=== PATIENT | female | born 1955 | race American Indian/Alaskan Native ===

== ENCOUNTER 2019-03-29 19:26 | Inpatient (IN) | payer OTHER ==
[2019-03-29] MEDS ORDERED: levETIRAcetam 1000 MG/NS 0.75% 1,000 MG/100 ML BAG IV ONE (19:36)
[2019-03-29] MEDS ORDERED: SODIUM CHLORIDE 0.9% 500 ML 500 ML IV ONE (19:40)
[2019-03-29] MEDS ORDERED: SODIUM CHLORIDE 0.9% 1000 ML 1,000 ML ONE (19:48)
--- NOTE | 2019-03-29 19:51 | Emergency Department Report ---
ED Seizure HPI - General Chief Complaint: Seizure Stated Complaint: SEIZURE Time Seen by Provider: 03/29/19 19:30 Source: family, EMS Mode of arrival: Wheelchair Limitations: Altered Mental Status - History of Present Illness Initial Comments: 63 year old female with multiple sclerosis wheelchair-bound presents from the skilled nursing after having multiple seizures. At this time is unclear patient has a seizure history. half-way staff reported that patient did have a history seizures. Family member at the skilled nursing states that the patient did not. Patient is not on any seizure medications on her medication list. Patient had 2 seizures prior to EMS arrival approximately 30 minutes ago. In route she had an additional 3 seizures. She received intranasal Versed 2.5 mg. Patient is currently post ictal. Apparently she is nonambulatory as per EMS. son arrived to ed denies hx of sz consents to intubation, not a dnr reports that pt often falls asleep in wheelchair. 4 days ago she slid out of wheelchair to floor but denied any pain or injuries. per [facility] med MAR pt current meds include tramdol asa 81 hctz potassium venlafaxine dermasra anti itch lotion atrovastatin latanoprost eye drops sulindac acetaminophen - Related Data Allergies Allergy/AdvReac Type Severity Reaction Status Date / Time No Known Allergies Allergy Unverified 03/29/19 20:00 ED Review of Systems ROS: Stated complaint: SEIZURE Other details as noted in HPI Comment: Unobtainable due to pts medical conditions ED Past Medical Hx - Past Medical History Hx Hypertension: Yes Hx Headaches / Migraines: Yes Additional medical history: elevated cholesterol. multiple sclerosis - Surgical History Past Surgical History?: No Additional Surgical History: DINORA - Social History Smoking Status: Unknown if ever smoked ED Physical Exam - General Limitations: Altered Mental Status - Other Other exam information: General: Lethargic a post ictal Head: Atraumatic Eyes: normal appearance pupils equal reactive to light ENT: Moist mucous membranes, mild gag reflex Neck: Normal appearance, no midline tenderness Chest: Clear to auscultation bilaterally CV: Tachycardic regular rhythm Abdomen: Soft, normal bowel sounds, nontender, nondistended, no rebound or guarding Back: Normal inspection Extremity: Normal inspection infection, full range of motion Neuro: Post ictal, lethargic, mild withdrawal to pain, minimal spontaneous movement. Psych: Appropriate behavior Skin: No rash ED Course Vital Signs 03/29/19 03/29/19 03/29/19 19:33 19:39 20:04 Temperature 97.9 F Pulse Rate 121 H 112 H Respiratory 16 16 Rate Blood Pressure 115/67 115/67 O2 Sat by Pulse 98 100 Oximetry 03/29/19 03/29/19 03/29/19 20:16 20:30 20:40 Temperature Pulse Rate 114 H 112 H 117 H Respiratory 17 15 Rate Blood Pressure 52/29 203/158 139/79 O2 Sat by Pulse 98 100 100 Oximetry 03/29/19 03/29/19 03/29/19 20:46 20:49 21:00 Temperature 96.9 F L Pulse Rate 118 H 110 H Respiratory 13 12 Rate Blood Pressure 111/64 113/80 O2 Sat by Pulse 100 100 Oximetry 03/29/19 03/29/19 03/29/19 21:16 21:30 21:46 Temperature Pulse Rate 112 H 117 H 113 H Respiratory 14 14 14 Rate Blood Pressure 115/81 139/78 127/79 O2 Sat by Pulse 100 100 100 Oximetry 03/29/19 03/29/19 03/29/19 22:00 22:16 23:03 Temperature Pulse Rate 113 H 120 H 118 H Respiratory 14 15 Rate Blood Pressure 129/79 140/83 139/85 O2 Sat by Pulse 100 100 100 Oximetry - Reevaluation(s) Reevaluation #1: 03/29/19 20:50 pt continued to sz despite 1g keppra and additional 2 mg of ativan. sz involved minor twitching movements to b/l hands/arms and face. decision made to intubate, verbal consent provided by son at bedside. ct head images reviewed. awaiting report 03/29/19 21:37 - Consultations Consultation #1: 03/29/19 21:35 case d/w Dr Pleitez with [place], agree that pt can be admitted here since intubated - Intubation Time Out Performed: Yes Sedative: Etomidate Mg Given: 20 Paralytic: Succinylcholine Mg Given: 100 Laryngoscope: Andre Size: 3 ET Tube Size: 7.5 Tube Secured Depth (cm): 22 Tube Secured Location: lips Tube Placement Confirmation: visualized tube passing t, equal breath sounds bilat, no breath sounds over epi, confirmation by capnometr Patient Tolerated Procedure: well, no complications Intubation Complications: none ED Medical Decision Making - Lab Data Result diagrams: 03/29/19 19:56 03/29/19 20:42 Lab Results 03/29/19 03/29/19 03/29/19 Range/Units 19:51 19:56 19:56 WBC 7.5 (4.5-11.0) K/mm3 RBC 4.02 (3.65-5.03) M/mm3 Hgb 11.0 (10.1-14.3) gm/dl Hct 33.0 (30.3-42.9) % MCV 82 (79-97) fl MCH 27 L (28-32) pg MCHC 33 (30-34) % RDW 15.7 H (13.2-15.2) % Plt Count 373 (140-440) K/mm3 Lymph % (Auto) 15.6 (13.4-35.0) % [place] % (Auto) 8.5 H (0.0-7.3) % Eos % (Auto) 1.1 (0.0-4.3) % Baso % (Auto) 0.6 (0.0-1.8) % Lymph # 1.2 (1.2-5.4) K/mm3 [place] # 0.6 (0.0-0.8) K/mm3 Eos # 0.1 (0.0-0.4) K/mm3 Baso # 0.0 (0.0-0.1) K/mm3 Seg Neutrophils % 74.2 H (40.0-70.0) % Seg Neutrophils # 5.5 (1.8-7.7) K/mm3 PT (12.2-14.9) Sec. INR (0.87-1.13) APTT (24.2-36.6) Sec. POC ABG pH (7.35-7.45) POC ABG pCO2 (35-45) POC ABG pO2 (80-105) POC ABG HCO3 (22-26 mml/L) POC ABG Total CO2 (23-27mmol/L) POC ABG O2 Sat POC ABG Base Excess ((-2) - (+3)mmol/L) FiO2 % Sodium (137-145) mmol/L Potassium (3.6-5.0) mmol/L Chloride (98-107) mmol/L Carbon Dioxide (22-30) mmol/L Anion Gap mmol/L BUN (7-17) mg/dL Creatinine (0.7-1.2) mg/dL Estimated GFR ml/min BUN/Creatinine Ratio % Glucose (65-100) mg/dL POC Glucose 73 (70-105) Lactic Acid (0.7-2.0) mmol/L Calcium (8.4-10.2) mg/dL Magnesium 1.80 (1.7-2.3) mg/dL Total Bilirubin (0.1-1.2) mg/dL AST (5-40) units/L ALT (7-56) units/L Alkaline Phosphatase (35-129) units/L Total Creatine Kinase (30-135) units/L Total Protein (6.3-8.2) g/dL Albumin (3.9-5) g/dL Albumin/Globulin Ratio % Urine Color (Yellow) Urine Turbidity (Clear) Urine pH (5.0-7.0) Ur Specific [place] (1.003-1.030) Urine Protein (Negative) mg/dL Urine Glucose (UA) (Negative) mg/dL Urine Ketones (Negative) mg/dL Urine Blood (Negative) Urine Nitrite (Negative) Urine Bilirubin (Negative) Urine Urobilinogen (<2.0) mg/dL Ur Leukocyte Esterase (Negative) Urine WBC (Auto) (0.0-6.0) /HPF Urine RBC (Auto) (0.0-6.0) /HPF U Epithel Cells (Auto) (0-13.0) /HPF Urine Bacteria (Auto) (Negative) /HPF Urine WBC Clumps /HPF Hyaline Casts /LPF Urine Mucus /HPF Urine Yeast (Budding) /HPF Urine Opiates Screen Urine Methadone Screen Ur Barbiturates Screen Ur Phencyclidine Scrn Ur Amphetamines Screen Urine Cocaine Screen U Marijuana (THC) Screen 03/29/19 03/29/19 03/29/19 Range/Units 19:56 20:42 20:42 WBC (4.5-11.0) K/mm3 RBC (3.65-5.03) M/mm3 Hgb (10.1-14.3) gm/dl Hct (30.3-42.9) % MCV (79-97) fl MCH (28-32) pg MCHC (30-34) % RDW (13.2-15.2) % Plt Count (140-440) K/mm3 Lymph % (Auto) (13.4-35.0) % [place] % (Auto) (0.0-7.3) % Eos % (Auto) (0.0-4.3) % Baso % (Auto) (0.0-1.8) % Lymph # (1.2-5.4) K/mm3 [place] # (0.0-0.8) K/mm3 Eos # (0.0-0.4) K/mm3 Baso # (0.0-0.1) K/mm3 Seg Neutrophils % (40.0-70.0) % Seg Neutrophils # (1.8-7.7) K/mm3 PT 14.2 (12.2-14.9) Sec. INR 1.11 (0.87-1.13) APTT 22.3 L (24.2-36.6) Sec. POC ABG pH (7.35-7.45) POC ABG pCO2 (35-45) POC ABG pO2 (80-105) POC ABG HCO3 (22-26 mml/L) POC ABG Total CO2 (23-27mmol/L) POC ABG O2 Sat POC ABG Base Excess ((-2) - (+3)mmol/L) FiO2 % Sodium 135 L (137-145) mmol/L Potassium 5.4 H (3.6-5.0) mmol/L Chloride 94.4 L (98-107) mmol/L Carbon Dioxide 24 (22-30) mmol/L Anion Gap 22 mmol/L BUN 15 (7-17) mg/dL Creatinine 0.7 (0.7-1.2) mg/dL Estimated GFR > 60 ml/min BUN/Creatinine Ratio 21 % Glucose 76 (65-100) mg/dL POC Glucose (70-105) Lactic Acid (0.7-2.0) mmol/L Calcium 9.0 (8.4-10.2) mg/dL Magnesium (1.7-2.3) mg/dL Total Bilirubin 0.40 (0.1-1.2) mg/dL AST 22 (5-40) units/L ALT 11 (7-56) units/L Alkaline Phosphatase 154 H (35-129) units/L Total Creatine Kinase 133 (30-135) units/L Total Protein 5.9 L (6.3-8.2) g/dL Albumin 3.4 L (3.9-5) g/dL Albumin/Globulin Ratio 1.4 % Urine Color (Yellow) Urine Turbidity (Clear) Urine pH (5.0-7.0) Ur Specific [place] (1.003-1.030) Urine Protein (Negative) mg/dL Urine Glucose (UA) (Negative) mg/dL Urine Ketones (Negative) mg/dL Urine Blood (Negative) Urine Nitrite (Negative) Urine Bilirubin (Negative) Urine Urobilinogen (<2.0) mg/dL Ur Leukocyte Esterase (Negative) Urine WBC (Auto) (0.0-6.0) /HPF Urine RBC (Auto) (0.0-6.0) /HPF U Epithel Cells (Auto) (0-13.0) /HPF Urine Bacteria (Auto) (Negative) /HPF Urine WBC Clumps /HPF Hyaline Casts /LPF Urine Mucus /HPF Urine Yeast (Budding) /HPF Urine Opiates Screen Urine Methadone Screen Ur Barbiturates Screen Ur Phencyclidine Scrn Ur Amphetamines Screen Urine Cocaine Screen U Marijuana (THC) Screen 03/29/19 03/29/19 03/29/19 Range/Units 20:42 21:10 21:10 WBC (4.5-11.0) K/mm3 RBC (3.65-5.03) M/mm3 Hgb (10.1-14.3) gm/dl Hct (30.3-42.9) % MCV (79-97) fl MCH (28-32) pg MCHC (30-34) % RDW (13.2-15.2) % Plt Count (140-440) K/mm3 Lymph % (Auto) (13.4-35.0) % [place] % (Auto) (0.0-7.3) % Eos % (Auto) (0.0-4.3) % Baso % (Auto) (0.0-1.8) % Lymph # (1.2-5.4) K/mm3 [place] # (0.0-0.8) K/mm3 Eos # (0.0-0.4) K/mm3 Baso # (0.0-0.1) K/mm3 Seg Neutrophils % (40.0-70.0) % Seg Neutrophils # (1.8-7.7) K/mm3 PT (12.2-14.9) Sec. INR (0.87-1.13) APTT (24.2-36.6) Sec. POC ABG pH (7.35-7.45) POC ABG pCO2 (35-45) POC ABG pO2 (80-105) POC ABG HCO3 (22-26 mml/L) POC ABG Total CO2 (23-27mmol/L) POC ABG O2 Sat POC ABG Base Excess ((-2) - (+3)mmol/L) FiO2 % Sodium (137-145) mmol/L Potassium (3.6-5.0) mmol/L Chloride (98-107) mmol/L Carbon Dioxide (22-30) mmol/L Anion Gap mmol/L BUN (7-17) mg/dL Creatinine (0.7-1.2) mg/dL Estimated GFR ml/min BUN/Creatinine Ratio % Glucose (65-100) mg/dL POC Glucose (70-105) Lactic Acid 2.60 H* (0.7-2.0) mmol/L Calcium (8.4-10.2) mg/dL Magnesium (1.7-2.3) mg/dL Total Bilirubin (0.1-1.2) mg/dL AST (5-40) units/L ALT (7-56) units/L Alkaline Phosphatase (35-129) units/L Total Creatine Kinase (30-135) units/L Total Protein (6.3-8.2) g/dL Albumin (3.9-5) g/dL Albumin/Globulin Ratio % Urine Color [place] (Yellow) Urine Turbidity Cloudy (Clear) Urine pH 5.0 (5.0-7.0) Ur Specific [place] 1.015 (1.003-1.030) Urine Protein 100 mg/dl (Negative) mg/dL Urine Glucose (UA) Neg (Negative) mg/dL Urine Ketones 20 (Negative) mg/dL Urine Blood Sm (Negative) Urine Nitrite Pos (Negative) Urine Bilirubin Neg (Negative) Urine Urobilinogen 2.0 (<2.0) mg/dL Ur Leukocyte Esterase Mod (Negative) Urine WBC (Auto) > 182.0 H (0.0-6.0) /HPF Urine RBC (Auto) 18.0 (0.0-6.0) /HPF U Epithel Cells (Auto) 2.0 (0-13.0) /HPF Urine Bacteria (Auto) 4+ (Negative) /HPF Urine WBC Clumps 3+ /HPF Hyaline Casts 15 /LPF Urine Mucus 3+ /HPF Urine Yeast (Budding) 3+ /HPF Urine Opiates Screen Presumptive negative Urine Methadone Screen Presumptive negative Ur Barbiturates Screen Presumptive negative Ur Phencyclidine Scrn Presumptive negative Ur Amphetamines Screen Presumptive negative Urine Cocaine Screen Presumptive negative U Marijuana (THC) Screen Presumptive negative 03/29/19 Range/Units 21:29 WBC (4.5-11.0) K/mm3 RBC (3.65-5.03) M/mm3 Hgb (10.1-14.3) gm/dl Hct (30.3-42.9) % MCV (79-97) fl MCH (28-32) pg MCHC (30-34) % RDW (13.2-15.2) % Plt Count (140-440) K/mm3 Lymph % (Auto) (13.4-35.0) % [place] % (Auto) (0.0-7.3) % Eos % (Auto) (0.0-4.3) % Baso % (Auto) (0.0-1.8) % Lymph # (1.2-5.4) K/mm3 [place] # (0.0-0.8) K/mm3 Eos # (0.0-0.4) K/mm3 Baso # (0.0-0.1) K/mm3 Seg Neutrophils % (40.0-70.0) % Seg Neutrophils # (1.8-7.7) K/mm3 PT (12.2-14.9) Sec. INR (0.87-1.13) APTT (24.2-36.6) Sec. POC ABG pH 7.415 (7.35-7.45) POC ABG pCO2 42.0 (35-45) POC ABG pO2 285 H (80-105) POC ABG HCO3 26.9 (22-26 mml/L) POC ABG Total CO2 28 (23-27mmol/L) POC ABG O2 Sat 100 POC ABG Base Excess 2 ((-2) - (+3)mmol/L) FiO2 50 % Sodium (137-145) mmol/L Potassium (3.6-5.0) mmol/L Chloride (98-107) mmol/L Carbon Dioxide (22-30) mmol/L Anion Gap mmol/L BUN (7-17) mg/dL Creatinine (0.7-1.2) mg/dL Estimated GFR ml/min BUN/Creatinine Ratio % Glucose (65-100) mg/dL POC Glucose (70-105) Lactic Acid (0.7-2.0) mmol/L Calcium (8.4-10.2) mg/dL Magnesium (1.7-2.3) mg/dL Total Bilirubin (0.1-1.2) mg/dL AST (5-40) units/L ALT (7-56) units/L Alkaline Phosphatase (35-129) units/L Total Creatine Kinase (30-135) units/L Total Protein (6.3-8.2) g/dL Albumin (3.9-5) g/dL Albumin/Globulin Ratio % Urine Color (Yellow) Urine Turbidity (Clear) Urine pH (5.0-7.0) Ur Specific [place] (1.003-1.030) Urine Protein (Negative) mg/dL Urine Glucose (UA) (Negative) mg/dL Urine Ketones (Negative) mg/dL Urine Blood (Negative) Urine Nitrite (Negative) Urine Bilirubin (Negative) Urine Urobilinogen (<2.0) mg/dL Ur Leukocyte Esterase (Negative) Urine WBC (Auto) (0.0-6.0) /HPF Urine RBC (Auto) (0.0-6.0) /HPF U Epithel Cells (Auto) (0-13.0) /HPF Urine Bacteria (Auto) (Negative) /HPF Urine WBC Clumps /HPF Hyaline Casts /LPF Urine Mucus /HPF Urine Yeast (Budding) /HPF Urine Opiates Screen Urine Methadone Screen Ur Barbiturates Screen Ur Phencyclidine Scrn Ur Amphetamines Screen Urine Cocaine Screen U Marijuana (THC) Screen - EKG Data -: EKG Interpreted by Me EKG shows normal: sinus rhythm, ST-T waves (no stemi) Rate: tachycardia (110) - EKG Data When compared to previous EKG there are: previous EKG unavailable - Radiology Data Radiology results: report reviewed CT head/brain wo con INDICATION / CLINICAL INFORMATION: 63 years Female; ams, mulitple seizures. TECHNIQUE: Routine CT head without contrast. All CT scans at this location are performed using CT dose reduction for ALARA by means of automated exposure control. COMPARISON: None. FINDINGS: BRAIN / INTRACRANIAL CONTENTS: No acute hemorrhage, mass effect, midline shift, hydrocephalus, or acute, large territorial infarct. No chronic infarct or focal area of encephalomalacia. Lateral ventricles and third ventricle are generous, disproportionate to high convexity cortical sulci suggesting deep central involution. In addition, temporal horn tips are dilated bilaterally suggesting volume loss in the hippocampus. Given the history of seizures, this may be findings related to seizure focus. CRANIOCERVICAL JUNCTION: No significant abnormality. ORBITS: No significant abnormality of visualized orbits. SINUSES / MASTOIDS: No significant abnormality of the visualized paranasal sinuses or mastoid air cells. ADDITIONAL FINDINGS: None. IMPRESSION: I do not see space taking lesion especially in the frontal lobes Deep central involution Marked dilatation of both temporal horn tips Hippocampal atrophy CT head/brain wo con INDICATION / CLINICAL INFORMATION: 63 years Female; ams, mulitple seizures. TECHNIQUE: Routine CT head without contrast. All CT scans at this location are performed using CT dose reduction for ALARA by means of auto mated exposure control. COMPARISON: None. FINDINGS: BRAIN / INTRACRANIAL CONTENTS: No acute hemorrhage, mass effect, midline shift, hydrocephalus, or acute, large territorial infarct. No chronic infarct or focal area of encephalomalacia. Lateral ventricles and third ventricle are generous, dispropor tionate to high convexity cortical sulci suggesting deep central involution. In addition, temporal horn tips are dilated bilaterally suggesting volume loss in the hippocampus. Given the history of seizures, this may be findings related to seizure focus. CRANIOCERVICAL JUNCTION: No significant abnormality. ORBITS: No significant abnormality of visualized orbits. SINUSES / MASTOIDS: No significant abnormality of the visualized paranasal sinuses or mastoid air cells. ADDITIONAL FINDINGS: None. IMPRESSION: I do not see space taking lesion especially in the frontal lobes Deep central involution Marked dilatation of both temporal horn tips Hippocampal atrophy - Medical Decision Making new onset sz (as per family) with status requiring intubation and versed drip after failed iv keppra 1000mg and repeated doses of benzos (ativan 4mg IV given in ed and versed 2.5 mg intransal prior to arrival) pt on tramdol and venlafaxine which can both cause seizures pt also has hx of Multiple sclerosis dixon approved admission here Hospitalist informed pt with + uti rocephin and urine cultures ordered mild elevated lactic acid. 30ml/kg NS bolus NS was given pt requires ICU admission. - Differential Diagnosis seizure, encephalopathy, electrolyte abnl Critical Care Time: Yes Critical care time in (mins) excluding proc time.: 35 Critical care attestation.: If time is entered above; I have spent that time in minutes in the direct care of this critically ill patient, excluding procedure time. ED Disposition Clinical Impression: Status epilepticus, Required emergency intubation, Multiple sclerosis, UTI (urinary tract infection) Disposition: [id number] OP ADMIT IP TO THIS HOSP Is pt being admited?: Yes Does the pt Need Aspirin: No Condition: Stable Time of Disposition: 21:43 (Dr Enriquez/hospitalist)
[2019-03-29] MEDS ORDERED: LORazepam 2 MG/ML VIAL ONE (20:20)
[2019-03-29] MEDS ORDERED: LORazepam 2 MG/ML VIAL IV ONE ×2 (20:35→20:40)
[2019-03-29] MEDS ORDERED: MIDAZOLAM 2 MG/2 ML INJ IV PRN (20:39)
[2019-03-29] MEDS ORDERED: LIP THERAPY VASELINE TP PRN (20:42)
[2019-03-29] MEDS ORDERED: MINERAL OIL/PETROLATUM, WHITE OPHTH OINT 3.5 GM OU PRN (20:42)
[2019-03-29 20:48] LABS: Basophils % (Auto) 0.6 % (0.0-1.8); Eosinophils # (Auto) 0.1 K/mm3 (0.0-0.4); Eosinophils % (Auto) 1.1 % (0.0-4.3); Lymphocytes # (Auto) 1.2 K/mm3 (1.2-5.4); Lymphocytes % (Auto) 15.6 % (13.4-35.0); Mean Corpuscular HGB Conc 33 % (30-34); Mean Corpuscular Volume 82 fl (79-97); Monocytes # (Auto) 0.6 K/mm3 (0.0-0.8); Monocytes % (Auto) 8.5 % (0.0-7.3); Platelet Count 373 K/mm3 (140-440); Red Blood Count 4.02 M/mm3 (3.65-5.03); Red Cell Distribution Width 15.7 % (13.2-15.2)
--- NOTE | 2019-03-29 21:00 | Cat Scan Report ---
CT head/brain wo con INDICATION / CLINICAL INFORMATION: 63 years Female; ams, mulitple seizures. TECHNIQUE: Routine CT head without contrast. All CT scans at this location are performed using CT dos e reduction for ALARA by means of automated exposure control. COMPARISON: None. FINDINGS: BRAIN / INTRACRANIAL CONTENTS: No acute hemorrhage, mass effect, midline shift, hydrocephalus, or acu te, large territorial infarct. No chronic infarct or focal area of encephalomalacia. Lateral ventricles and third ventricle are generous, disproportionate to high convexity cortical sulc i suggesting deep central involution. In addition, temporal horn tips are dilated bilaterally suggest ing volume loss in the hippocampus. Given the history of seizures, this may be findings related to se izure focus. CRANIOCERVICAL JUNCTION: No significant abnormality. ORBITS: No significant abnormality of visualized orbits. SINUSES / MASTOIDS: No significant abnormality of the visualized paranasal sinuses or mastoid air marialuisa ls. ADDITIONAL FINDINGS: None. IMPRESSION: I do not see space taking lesion especially in the frontal lobes Deep central involution Marked dilatation of both temporal horn tips Hippocampal atrophy Signer Name: Sury Manning MD Signed: 03/29/2019 8:56 PM Workstation Name: [id number]
[2019-03-29 21:09] LABS: Alanine Aminotransferase 11 units/L (7-56); Albumin 3.4 g/dL (3.9-5); BUN/Creatinine Ratio 21; Blood Urea Nitrogen 15 mg/dL (7-17); Hemolysis Index 28
--- NOTE | 2019-03-29 21:13 | XRay Report ---
CHEST 1 VIEW 03/29/2019 8:44 PM INDICATION / CLINICAL INFORMATION: Seizures, altered mental status. COMPARISON: None available. FINDINGS: SUPPORT DEVICES: The tip of ET tube projects about 5 cm above the estefania. HEART / MEDIASTINUM: No significant abnormality. LUNGS / PLEURA: No significant pulmonary or pleural abnormality. No pneumothorax. ADDITIONAL FINDINGS: No significant additional findings. IMPRESSION: 1. No acute findings. Signer Name: Morris Woody MD Signed: 03/29/2019 9:08 PM Workstation Name: [id number]
[2019-03-29 21:20] LABS: INR 1.11 (0.87-1.13)
[2019-03-29 21:22] LABS: Partial Thromboplastin Time 22.3 Sec. (24.2-36.6)
[2019-03-29] MEDS ORDERED: SODIUM CHLORIDE 0.9% 1000 ML 1,000 ML IV ONE (21:22)
[2019-03-29 21:30] LABS: Bacteria,Urine 4+ /HPF (Negative); Bilirubin,Urine NEG (Negative); Blood,Urine SM (Negative); Color,Urine Amber (Yellow); Hyaline Casts,Urine 15 /LPF; Mucus,Urine 3+ /HPF
[2019-03-29] MEDS: MIDAZOLAM 100 MG in SODIUM CHLORIDE 0.9% 80 ML IV SCH (21:30)
[2019-03-29 21:32] LABS: WBC,Urine > 182.0 /HPF (0.0-6.0)
[2019-03-29 21:37] LABS: Amphetamine Screen,Urine PRESUMPTIVE NEGATIVE; Cannabinoid Screen,Urine PRESUMPTIVE NEGATIVE; Cocaine Screen,Urine PRESUMPTIVE NEGATIVE; Methadone Screen,Urine PRESUMPTIVE NEGATIVE; Opiate Screen,Urine PRESUMPTIVE NEGATIVE
[2019-03-29] MEDS ORDERED: cefTRIAXone/NS 1 GM/50 ML 1 GM/50 ML BAG IV ONE (21:40)
[2019-03-29 21:57] LABS: Benzodiazepines Screen,Urine PRESUMPTIVE POSITIVE
[2019-03-29] MEDS ORDERED: ONDANSETRON 4 MG/2 ML INJ IV PRN (23:19)
[2019-03-29] MEDS ORDERED: ACETAMINOPHEN 650 MG RECT SUPP PR PRN (23:19)
[2019-03-29] MEDS ORDERED: ETOMIDATE 20 MG/10 ML INJ IV ONE (23:40)
[2019-03-29] MEDS ORDERED: SUCCINYLCHOLINE CHLORIDE 200 MG/10 ML INJ MDV ONE (23:40)
[2019-03-30] MEDS: SODIUM CHLORIDE 0.9% 1000 ML 1,000 ML IV SCH ×2 (02:28→19:58)
[2019-03-30] MEDS ORDERED: cefTRIAXone/NS 1 GM/50 ML 1 GM/50 ML BAG IV ONE (03:00)
--- NOTE | 2019-03-30 03:10 | XRay Report ---
CHEST 1 VIEW INDICATION: follow up respiratory failure. COMPARISON: Previous day. FINDINGS: Support devices: Unchanged. Heart: Within normal limits. Lungs/Pleura: No acute air space or interstitial disease. Additional findings: None. IMPRESSION: No acute infiltrate. Signer Name: Jayy Lea MD Signed: 03/30/2019 3:05 AM Workstation Name: [id number]
--- NOTE | 2019-03-30 04:04 | History and Physical Report ---
History of Present Illness Date of examination: 03/29/19 Date of admission: 03/29/19 21:40 Chief complaint: Seizure Disorder History of present illness: 63-year-old female with known history of multiple sclerosis [facility] been brought to the emergency room today with multiple seizures. Patient had about 2 seizures prior to arrival of EMS. In route to the hospital patient had about 2 or 3 seizures. It is unclear whether patient has known history of seizures however [facility] staff indicates she has known history of seizures but family members denies any history of seizures. Patient is not on any known medication for seizure disorder. She was subsequently intubated in the emergency room. Her work-up indicates that she has an underlying UTI and placed on empiric IV antibiotics Past History Past Medical History: other (Multiple sclerosis) Family history: other (Son has Multiple Sclerosis) Medications and Allergies Allergies Allergy/AdvReac Type Severity Reaction Status Date / Time No Known Allergies Allergy Unverified 03/29/19 20:00 Home Medications Medication Instructions Recorded Confirmed Last Taken Type Acetaminophen [Tylenol] 1,000 mg PO Q8HR PRN 03/30/19 03/30/19 Unknown History Aspirin EC [Halfprin EC] 81 mg PO QDAY 03/30/19 03/30/19 Unknown History Atorvastatin [Lipitor Tab] 40 mg PO QHS 03/30/19 03/30/19 Unknown History Latanoprost 0.005% [Xalatan 0.005%] 1 drop OP QPM 03/30/19 03/30/19 Unknown History Menthol/Camphor [Dermasarra 222 ml TP PRN PRN 03/30/19 03/30/19 Unknown History Anti-Itch Lotion] Potassium Chloride 40 mg PO DAILY 03/30/19 03/30/19 Unknown History Sulindac 200 mg PO BID PRN 03/30/19 03/30/19 Unknown History Venlafaxine ER 150 mg PO DAILY 03/30/19 03/30/19 Unknown History hydroCHLOROthiazide [HCTZ] 25 mg PO QDAY 03/30/19 03/30/19 Unknown History traMADoL [Ultram] 50 mg PO Q8HR PRN MDD 150/day 03/30/19 03/30/19 Unknown History Active Meds: Active Medications Acetaminophen (Tylenol) 650 mg [place] Q6H PRN PRN Reason: Pain MILD(1-3)/Fever >100.5/ALEGRIA Heparin Sodium (Porcine) (Heparin) 5,000 unit SUB-Q Q8HR [facility] Hydrophilic Ointment (Vaseline Lip Therapy) 1 applic TP Q2HR PRN PRN Reason: Dry Lips Midazolam HCl 100 mg/ Sodium (Chloride) 100 mls @ 2 mls/hr IV TITR [facility]AN[facility]; Protocol Last Admin: 03/29/19 21:30 Dose: 2 mg/hr, 2 mls/hr Documented by: Sodium Chloride (Nacl 0.9% 1000 Ml) 1,000 mls @ 75 mls/hr IV DIRECT JANES Last Admin: 03/30/19 02:28 Dose: 75 mls/hr Documented by: Midazolam HCl (Versed) 2 mg IV Q10MIN PRN PRN Reason: Sedation Multi-Ingred Cream/Lotion/Oil/Oint (Artificial Tears Ophth Oint) 1 applic OU Q4HR PRN PRN Reason: Dry Eye(s) Ondansetron HCl (Zofran) 4 mg IV Q8H PRN PRN Reason: Nausea And Vomiting Sodium Chloride (Sodium Chloride Flush Syringe 10 Ml) 10 ml IV BID JANES Sodium Chloride (Sodium Chloride Flush Syringe 10 Ml) 10 ml IV PRN PRN PRN Reason: LINE FLUSH Review of Systems ROS unobtainable: due to endotracheal tube Exam - Constitutional Vitals: Temp Pulse Resp BP Pulse Ox 98.6 F 99 H 14 115/67 79 L 03/30/19 03:38 03/30/19 03:00 03/30/19 03:00 03/30/19 03:00 03/30/19 02:45 General appearance: Present: mild distress, cachectic - EENT Eyes: Present: PERRL, EOM intact ENT: hearing intact, clear oral mucosa, other (Intubated) - Neck Neck: Present: supple, normal ROM - Respiratory Respiratory: bilateral: CTA - Cardiovascular Rhythm: regular Heart Sounds: Present: S1 & S2 - Extremities Extremities: no ischemia, No edema Peripheral Pulses: within normal limits - Abdominal General gastrointestinal: Present: soft, non-tender, non-distended - Integumentary Integumentary: Present: clear, warm, dry - Neurologic Neurologic: CNII-XII intact Results - Labs CBC & Chem 7: 03/29/19 19:56 03/29/19 20:42 Labs: Abnormal lab results 03/29/19 03/29/19 03/29/19 Range/Units 19:56 20:42 20:42 MCH 27 L (28-32) pg RDW 15.7 H (13.2-15.2) % [place] % (Auto) 8.5 H (0.0-7.3) % Seg Neutrophils % 74.2 H (40.0-70.0) % APTT 22.3 L (24.2-36.6) Sec. POC ABG pO2 (80-105) Sodium 135 L (137-145) mmol/L Potassium 5.4 H (3.6-5.0) mmol/L Chloride 94.4 L (98-107) mmol/L Lactic Acid (0.7-2.0) mmol/L Alkaline Phosphatase 154 H (35-129) units/L Total Protein 5.9 L (6.3-8.2) g/dL Albumin 3.4 L (3.9-5) g/dL Urine WBC (Auto) (0.0-6.0) /HPF 03/29/19 03/29/19 03/29/19 Range/Units 20:42 21:10 21:29 MCH (28-32) pg RDW (13.2-15.2) % [place] % (Auto) (0.0-7.3) % Seg Neutrophils % (40.0-70.0) % APTT (24.2-36.6) Sec. POC ABG pO2 285 H (80-105) Sodium (137-145) mmol/L Potassium (3.6-5.0) mmol/L Chloride (98-107) mmol/L Lactic Acid 2.60 H* (0.7-2.0) mmol/L Alkaline Phosphatase (35-129) units/L Total Protein (6.3-8.2) g/dL Albumin (3.9-5) g/dL Urine WBC (Auto) > 182.0 H (0.0-6.0) /HPF Assessment and Plan - Patient Problems (1) Status epilepticus Current Visit: Yes Status: Acute Plan to address problem: Patient has been placed on IV Keppra. She will be closely monitored in the intensive care unit. We will place a consult to neurology for further evaluation and recommendation. (2) UTI (urinary tract infection) Current Visit: Yes Status: Acute Plan to address problem: She has been placed on empiric IV antibiotics. (3) Multiple sclerosis Current Visit: Yes Status: Acute Plan to address problem: Patient has known history of multiple sclerosis. She [facility] a [facility]. (4) DVT prophylaxis Current Visit: Yes Status: Acute Plan to address problem: She is placed on subcutaneous heparin. (5) Full code status Current Visit: Yes Status: Acute
[2019-03-30 04:33] LABS: ABG Base Excess -1.6 mmol/L (-2.0-3.0); ABG HCO3 22.7 mmol/L (20.0-26.0); ABG Methemoglobin 0.7 % (0.0-1.5); ABG Oxygen Saturation 98.9 % (95.0-99.0); ABG PH 7.406 pH Units (7.350-7.450)
[2019-03-30] MEDS: HEPARIN 5,000 UNIT/1 ML VIAL SUB-Q SCH ×3 (05:44→21:57)
[2019-03-30] MEDS ORDERED: CAMPHOR TP PRN (08:22)
[2019-03-30] MEDS ORDERED: traMADol 50 MG TAB PO PRN (08:22)
[2019-03-30] MEDS ORDERED: MENTHOL TP PRN (08:22)
[2019-03-30] MEDS ORDERED: SULINDAC 200 MG PO PRN (08:22)
[2019-03-30] MEDS ORDERED: ACETAMINOPHEN 500 MG TAB PO PRN (08:22)
[2019-03-30 08:58] LABS: BUN/Creatinine Ratio 24; Blood Urea Nitrogen 12 mg/dL (7-17); Calcium 9.1 mg/dL (8.4-10.2); Hemolysis Index 162
[2019-03-30] MEDS ORDERED: POTASSIUM CHLORIDE 40 MG PO SCH (10:00)
--- NOTE | 2019-03-30 10:11 | Consultation ---
History of Present Illness Consult date: 03/30/19 History of present illness: see my notes on the patient she is stable at this point the CT of the Head is c/w severe multiple sclerosis not an acute infarct etiology of the seizures could well be MS recommend seizure manage and agree with plan in effect Past History Past Medical History: other (Multiple sclerosis) Family history: other (Son has Multiple Sclerosis) Medications and Allergies Allergies Allergy/AdvReac Type Severity Reaction Status Date / Time No Known Allergies Allergy Unverified 03/29/19 20:00 Home Medications Medication Instructions Recorded Confirmed Last Taken Type Acetaminophen [Tylenol] 1,000 mg PO Q8HR PRN 03/30/19 03/30/19 Unknown History Aspirin EC [Halfprin EC] 81 mg PO QDAY 03/30/19 03/30/19 Unknown History Atorvastatin [Lipitor Tab] 40 mg PO QHS 03/30/19 03/30/19 Unknown History Latanoprost 0.005% [Xalatan 0.005%] 1 drop OP QPM 03/30/19 03/30/19 Unknown History Menthol/Camphor [Dermasarra 222 ml TP PRN PRN 03/30/19 03/30/19 Unknown History Anti-Itch Lotion] Potassium Chloride 40 mg PO DAILY 03/30/19 03/30/19 Unknown History Sulindac 200 mg PO BID PRN 03/30/19 03/30/19 Unknown History Venlafaxine ER 150 mg PO DAILY 03/30/19 03/30/19 Unknown History hydroCHLOROthiazide [HCTZ] 25 mg PO QDAY 03/30/19 03/30/19 Unknown History traMADoL [Ultram] 50 mg PO Q8HR PRN MDD 150/day 03/30/19 03/30/19 Unknown History Active Meds: Active Medications Acetaminophen (Tylenol) 650 mg [place] Q6H PRN PRN Reason: Pain MILD(1-3)/Fever >100.5/ALEGRIA Acetaminophen (Tylenol) 1,000 mg PO Q8HR PRN PRN Reason: Mild Pain unrelieved by APAP Aspirin (Halfprin Ec) 81 mg PO QDAY [facility] Atorvastatin Calcium (Lipitor) 40 mg PO QHS [facility] Heparin Sodium (Porcine) (Heparin) 5,000 unit SUB-Q Q8HR [facility] Last Admin: 03/30/19 05:44 Dose: 5,000 unit Documented by: Hydrochlorothiazide (Hctz) 25 mg PO QDAY [facility] Hydrophilic Ointment (Vaseline Lip Therapy) 1 applic TP Q2HR PRN PRN Reason: Dry Lips Midazolam HCl 100 mg/ Sodium (Chloride) 100 mls @ 2 mls/hr IV TITR JANES; Protocol Last Admin: 03/29/19 21:30 Dose: 2 mg/hr, 2 mls/hr Documented by: Sodium Chloride (Nacl 0.9% 1000 Ml) 1,000 mls @ 75 mls/hr IV DIRECT JANES Last Admin: 03/30/19 02:28 Dose: 75 mls/hr Documented by: Levetiracetam 500 mg/ Dextrose 105 mls @ 400 mls/hr IV Q12HR [facility] Ceftriaxone Sodium (Rocephin/Ns 1 Gm/50 Ml) 1 gm in 50 mls @ 100 mls/hr IV Q24H [facility]; Protocol Latanoprost (Latanoprost 0.005%) 1 drops OU QPM [facility] Midazolam HCl (Versed) 2 mg IV Q10MIN PRN PRN Reason: Sedation Miscellaneous Medication (Menthol/Camphor [Dermasarra Anti-Itch Lotion]) 222 ml TP PRN PRN PRN Reason: Itching Miscellaneous Medication (Sulindac [Sulindac]) 200 mg PO BID PRN PRN Reason: Migraine Headache Multi-Ingred Cream/Lotion/Oil/Oint (Artificial Tears Ophth Oint) 1 applic OU Q4HR PRN PRN Reason: Dry Eye(s) Ondansetron HCl (Zofran) 4 mg IV Q8H PRN PRN Reason: Nausea And Vomiting Potassium Chloride (K-Dur) 40 meq PO QDAY [facility] Sodium Chloride (Sodium Chloride Flush Syringe 10 Ml) 10 ml IV BID [facility] Sodium Chloride (Sodium Chloride Flush Syringe 10 Ml) 10 ml IV PRN PRN PRN Reason: LINE FLUSH Tramadol HCl (Ultram) 50 mg PO Q8HR PRN PRN Reason: Pain , Severe (7-10) Venlafaxine HCl (Effexor Xr) 150 mg PO QDAY [facility] Physical Examination - Vital Signs Vital Signs: Vital Signs Pulse Resp BP Pulse Ox 121 H 16 115/67 98 03/29/19 19:33 03/29/19 19:33 03/29/19 19:33 03/29/19 19:33 Results - Laboratory Findings CBC and BMP: 03/29/19 19:56 03/30/19 07:41 Abnormal Lab Findings: Abnormal Labs 03/29/19 03/29/19 03/29/19 19:56 20:42 20:42 MCH 27 L RDW 15.7 H [place] % (Auto) 8.5 H Seg Neutrophils % 74.2 H APTT 22.3 L POC ABG pO2 ABG pO2 ABG Hemoglobin Sodium 135 L Potassium 5.4 H Chloride 94.4 L Carbon Dioxide Creatinine Lactic Acid Alkaline Phosphatase 154 H Total Protein 5.9 L Albumin 3.4 L Urine WBC (Auto) 03/29/19 03/29/19 03/29/19 20:42 21:10 21:29 MCH RDW [place] % (Auto) Seg Neutrophils % APTT POC ABG pO2 285 H ABG pO2 ABG Hemoglobin Sodium Potassium Chloride Carbon Dioxide Creatinine Lactic Acid 2.60 H* Alkaline Phosphatase Total Protein Albumin Urine WBC (Auto) > 182.0 H 03/30/19 03/30/19 04:14 07:41 MCH RDW [place] % (Auto) Seg Neutrophils % APTT POC ABG pO2 ABG pO2 154.0 H ABG Hemoglobin 11.3 L Sodium Potassium Chloride Carbon Dioxide 16 L D Creatinine 0.5 L Lactic Acid Alkaline Phosphatase Total Protein Albumin Urine WBC (Auto)
--- NOTE | 2019-03-30 10:35 | Consultation ---
HISTORY OF PRESENT ILLNESS: This is a 63-year-old black female that presents to [facility]. This patient presents with history of advanced multiple sclerosis, had been in a halfway, began having seizures and the patient became acutely confused and entered the hospital and was given Versed and subsequently intubated. The patient had been in a wheelchair for a long period of time. History is unobtainable from the patient because of the fact she had MS and her extreme condition. When she presented to the hospital, her blood pressure is 111/64, her respiratory rate was 14. She had a hematocrit of 33. She had evidence on checking her alkaline phosphatase is 154, albumin was 3.4, potassium is 5.4 and sodium is 135. On my examination at present, she is obtunded, seen in the ICU. She does not respond to verbal commands. No active seizure activity is present. She has full ocular movements. Does not respond to voice, semicomatose condition, but symmetrical movements. The patient has stable vital signs. As noted of the record at present 136/87 blood pressure. The O2 sats 100%, pulse rate is 107. IMPRESSION: This patient has obviously developed generalized seizures in the context of multiple sclerous, respiratory difficulty. I have reviewed over reports of her chest x-ray, which shows no acute infiltrates. No evidence of any airspace disease. RECOMMENDATIONS: 1. Continue active seizure management. I have reviewed over her CT scan of the head and there is a rather marked atrophy present throughout, particularly over the hemispheres. There seems to be some areas of white matter lesions noted over the left hemisphere and the right hemisphere as well. The ventricular system is moderately dilated and certainly dilated posteriorly and the cerebellum as well dilated. I do not see anything that would indicate that she has an acute MS lesions. 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 I would think that the patient would not benefit from any acute MS treatment such as plasmapheresis at this time, but pending history may change my opinions about that. JOB# [id number] MONTSERRAT/NTS
[2019-03-30] MEDS: levETIRAcetam 500 MG in DEXTROSE 5% IN WATER 100 ML IV SCH ×2 (10:39→21:58)
[2019-03-30] MEDS: MIDAZOLAM 100 MG in SODIUM CHLORIDE 0.9% 80 ML IV SCH (10:43)
--- NOTE | 2019-03-30 11:47 | Consultation ---
History of Present Illness Consult date: 03/30/19 Requesting physician: ROSA STRONG Reason for consult: other (Acute hypoxic respiratory failure, Seizures with status epilepticus, UTI) History of present illness: 63-year-old female with known history of multiple sclerosis resident of a [facility] been brought to the emergency room today with multiple seizures. Patient had about 2 seizures prior to arrival of EMS. In route to the hospital patient had about 2 or 3 seizures. It is unclear whether patient has known history of seizures however [facility] staff indicates she has known history of seizures but family members denies any history of seizures. Patient is not on any known medication for seizure disorder. She was subsequently intubated in the emergency room. Her work-up indicates that she has an underlying UTI and placed on empiric IV antibiotics. She has been admitted to the ICU and I have been consulted for critical care management. Patient seen and examined. Vitals, labs, medications, chart reviewed. She is currently intubated and on lorazepam infusion She is unresponsive. Her son and brother are visiting at the bedside. They state she has never had seizures, she is in a [facility] because she could not take care of herself at home. He says that she has always weaker on the left side - Past Medical History Hx Hypertension: Yes Hx Headaches / Migraines: Yes Additional medical history: elevated cholesterol. multiple sclerosis - Surgical History Past Surgical History?: No Additional Surgical History: DINORA - Social History Smoking Status: Unknown if ever smoked Past History Past Medical History: other (Multiple sclerosis) Family history: other (Son has Multiple Sclerosis) Medications and Allergies Allergies Allergy/AdvReac Type Severity Reaction Status Date / Time No Known Allergies Allergy Unverified 03/29/19 20:00 Home Medications Medication Instructions Recorded Confirmed Last Taken Type Acetaminophen [Tylenol] 1,000 mg PO Q8HR PRN 03/30/19 03/30/19 Unknown History Aspirin EC [Halfprin EC] 81 mg PO QDAY 03/30/19 03/30/19 Unknown History Atorvastatin [Lipitor Tab] 40 mg PO QHS 03/30/19 03/30/19 Unknown History Latanoprost 0.005% [Xalatan 0.005%] 1 drop OP QPM 03/30/19 03/30/19 Unknown History Menthol/Camphor [Dermasarra 222 ml TP PRN PRN 03/30/19 03/30/19 Unknown History Anti-Itch Lotion] Potassium Chloride 40 mg PO DAILY 03/30/19 03/30/19 Unknown History Sulindac 200 mg PO BID PRN 03/30/19 03/30/19 Unknown History Venlafaxine ER 150 mg PO DAILY 03/30/19 03/30/19 Unknown History hydroCHLOROthiazide [HCTZ] 25 mg PO QDAY 03/30/19 03/30/19 Unknown History traMADoL [Ultram] 50 mg PO Q8HR PRN MDD 150/day 03/30/19 03/30/19 Unknown History Active Meds: Active Medications Acetaminophen (Tylenol) 650 mg IN Q6H PRN PRN Reason: Pain MILD(1-3)/Fever >100.5/ALEGRIA Acetaminophen (Tylenol) 1,000 mg PO Q8HR PRN PRN Reason: Mild Pain unrelieved by APAP Aspirin (Halfprin Ec) 81 mg PO QDAY JAN[facility] Atorvastatin Calcium (Lipitor) 40 mg PO QHS [facility] Heparin Sodium (Porcine) (Heparin) 5,000 unit SUB-Q Q8HR [facility] Last Admin: 03/30/19 05:44 Dose: 5,000 unit Documented by: Hydrochlorothiazide (Hctz) 25 mg PO QDAY [facility] Hydrophilic Ointment (Vaseline Lip Therapy) 1 applic TP Q2HR PRN PRN Reason: Dry Lips Midazolam HCl 100 mg/ Sodium (Chloride) 100 mls @ 2 mls/hr IV TITR JANES; Protocol Last Admin: 03/30/19 10:43 Dose: 1 mg/hr, 1 mls/hr Documented by: Sodium Chloride (Nacl 0.9% 1000 Ml) 1,000 mls @ 75 mls/hr IV DIRECT JANES Last Admin: 03/30/19 02:28 Dose: 75 mls/hr Documented by: Levetiracetam 500 mg/ Dextrose 105 mls @ 400 mls/hr IV Q12HR [facility] Last Admin: 03/30/19 10:39 Dose: 400 mls/hr Documented by: Ceftriaxone Sodium (Rocephin/Ns 1 Gm/50 Ml) 1 gm in 50 mls @ 100 mls/hr IV Q24H [facility]; Protocol Latanoprost (Latanoprost 0.005%) 1 drops OU QPM [facility] Midazolam HCl (Versed) 2 mg IV Q10MIN PRN PRN Reason: Sedation Miscellaneous Medication (Menthol/Camphor [Dermasarra Anti-Itch Lotion]) 222 ml TP PRN PRN PRN Reason: Itching Miscellaneous Medication (Sulindac [Sulindac]) 200 mg PO BID PRN PRN Reason: Migraine Headache Multi-Ingred Cream/Lotion/Oil/Oint (Artificial Tears Ophth Oint) 1 applic OU Q4HR PRN PRN Reason: Dry Eye(s) Ondansetron HCl (Zofran) 4 mg IV Q8H PRN PRN Reason: Nausea And Vomiting Potassium Chloride (K-Dur) 40 meq PO QDAY [facility] Sodium Chloride (Sodium Chloride Flush Syringe 10 Ml) 10 ml IV BID [facility] Last Admin: 03/30/19 10:39 Dose: 10 ml Documented by: Sodium Chloride (Sodium Chloride Flush Syringe 10 Ml) 10 ml IV PRN PRN PRN Reason: LINE FLUSH Tramadol HCl (Ultram) 50 mg PO Q8HR PRN PRN Reason: Pain , Severe (7-10) Venlafaxine HCl (Effexor Xr) 150 mg PO QDAY [facility] Physical Examination Vital signs: Vital Signs Pulse Resp BP Pulse Ox 121 H 16 115/67 98 03/29/19 19:33 03/29/19 19:33 03/29/19 19:33 03/29/19 19:33 Reviewed General appearance: no acute distress, lethargic, other (ETT to mechanical vent, thin , unresponsive) Eyes: non-icteric ENT: oropharynx dry Effort: normal Ascultation: Bilateral: diminished breath sounds, rhonchi Cardiovascular: regular rate and rhythm, other (S1,S2, no murmurs, gallops, rubs) Gastrointestinal: normoactive bowel sounds, soft, non-tender Integumentary: normal Extremities: no cyanosis, no edema, pink and warm, pulses normal, no ischemia or petechiae pupils equal and round, unable to assess (on lorazepam) other (unable to assess AMS) Results - Laboratory Findings CBC and BMP: 04/01/19 05:22 04/01/19 05:22 ABG POC ABG pH 7.415 (7.35-7.45) 03/29/19 21:29 ABG pH 7.406 pH Units (7.350-7.450) 03/30/19 04:14 POC ABG pCO2 42.0 (35-45) 03/29/19 21:29 ABG pCO2 37.0 mm Hg 03/30/19 04:14 POC ABG pO2 285 (80-105) H 03/29/19 21:29 ABG pO2 154.0 mm Hg (80.0-90.0) H 03/30/19 04:14 POC ABG HCO3 26.9 (22-26 mml/L) 03/29/19 21:29 POC ABG Total CO2 28 (23-27mmol/L) 03/29/19 21:29 POC ABG O2 Sat 100 03/29/19 21:29 ABG O2 Saturation 98.9 % (95.0-99.0) 03/30/19 04:14 PT/INR, D-dimer PT 14.2 Sec. (12.2-14.9) 03/29/19 20:42 INR 1.11 (0.87-1.13) 03/29/19 20:42 Abnormal lab findings: Abnormal Labs 03/29/19 03/29/19 03/29/19 19:56 20:42 20:42 MCH 27 L RDW 15.7 H [place] % (Auto) 8.5 H Seg Neutrophils % 74.2 H APTT 22.3 L POC ABG pO2 ABG pO2 ABG Hemoglobin Sodium 135 L Potassium 5.4 H Chloride 94.4 L Carbon Dioxide Creatinine Lactic Acid Alkaline Phosphatase 154 H Total Protein 5.9 L Albumin 3.4 L Urine WBC (Auto) 03/29/19 03/29/19 03/29/19 20:42 21:10 21:29 MCH RDW [place] % (Auto) Seg Neutrophils % APTT POC ABG pO2 285 H ABG pO2 ABG Hemoglobin Sodium Potassium Chloride Carbon Dioxide Creatinine Lactic Acid 2.60 H* Alkaline Phosphatase Total Protein Albumin Urine WBC (Auto) > 182.0 H 03/30/19 03/30/19 04:14 07:41 MCH RDW [place] % (Auto) Seg Neutrophils % APTT POC ABG pO2 ABG pO2 154.0 H ABG Hemoglobin 11.3 L Sodium Potassium Chloride Carbon Dioxide 16 L D Creatinine 0.5 L Lactic Acid Alkaline Phosphatase Total Protein Albumin Urine WBC (Auto) - Diagnostic Findings Chest x-ray: image reviewed Assessment and Plan Acute hypoxemic respiratory failure on MVS Status epilepticus UTI h/o Multiple sclerosis Acute toxic-metabolic encephalopathy Severe protein calorie malnutrition PLAN -VAP bundle addressed -Aspiration precautions, HOB>40 degrees - Lung protective strategies -ABG in am -Daily SAT, SBT as tolerated -Keep off sedation to allow for evaluation of mental status -Place small bowel feeding tube and start tube feeding -Antibitoics for UTI -VTE prophylaxis -Stress ulcer prophylaxis - Accuchecks with glycemic control for SSI (While critically ill target blood glucose of 140-180 mg/dL; avoid hypoglycemia) - mobility protocol for pressure ulcer prevention - Monitor hemodynamics closely -Monitor electrolyte profile closely and replete as indicated -Chronic home medications -Optimize nutritional status -EEG and Neurology consult -Mobility to prevent pressure ulcers Updated the brother and son at the bedside All their questions were answered Discussed with RT and RN CONDITION: CRITICAL PROGNOSIS: GUARDED CODE STATUS: FULL CODE Extensive discussions with the family. Patient has an advance directive that states she does not want prolongation of life, but they want full care and resuscitation in the event of cardiopulmonary arrest. The high probability of a clinically significant, sudden or life threatening deterioration of the [multiple] system(s) required my full and direct attention, intervention and personal management. The aggregate critical care time was [45] minutes. This time is in addition to time spent performing reported procedures but includes the following: [x] Data Review and interpretation [x] Patient assessment and monitoring of vital signs [x] Documentation [x] Medication orders and management
[2019-03-30] MEDS ORDERED: LIPASE 10,500/PROTEASE 25,000/AMYLASE 43,750 (UNITS) DR CAP FEEDTUBE PRN ×2 (12:27→12:57)
[2019-03-30] MEDS ORDERED: SODIUM BICARBONATE 325 MG TAB FEEDTUBE PRN ×2 (12:27→12:57)
[2019-03-30] MEDS ORDERED: SIMPLE SYRUP 15 ML FEEDTUBE PRN ×2 (12:57)
--- NOTE | 2019-03-30 14:30 | XRay Report ---
ABDOMEN 1 VIEW(S) INDICATION / CLINICAL INFORMATION: Feeding tube placement. COMPARISON: None available. FINDINGS: TUBES / LINES: The tip of the feeding tube is coiled in the body of the stomach. BOWEL GAS PATTERN/EXTRALUMINAL GAS: There is mild gaseous distention of the colon. No pneumatosis or secondary signs of free air. ADDITIONAL FINDINGS: No significant additional findings. IMPRESSION: 1. Feeding tube tip is coiled in the stomach. Signer Name: Morris Woody MD Signed: 03/30/2019 2:25 PM Workstation Name: [id number]
--- NOTE | 2019-03-30 14:34 | Progress Note ---
Assessment and Plan / Status epilepticus Patient has been placed on IV Keppra. She will be closely monitored in the intensive care unit. placed a consult to neurology for further evaluation and recommendation. obtain EEG /Acute respiratory failure - cont nebs, pulmonary consulted - wean off vent as tolerated / UTI (urinary tract infection) She has been placed on empiric IV antibiotics. / Multiple sclerosis Patient has known history of multiple sclerosis. [facility]. Supportive care /Severe MIGUELINA - start on TF, nutrition consult /Hyperkalemia, resolved /DVT prophylaxis She is placed on subcutaneous heparin. / Full code status The high probability of a clinically significant, sudden or life threatening deterioration of the [multiple] system(s) required my full and direct attention, intervention and personal management. The aggregate critical care time was [32] minutes. This time is in addition to time spent performing reported procedures but includes the following: [x] Data Review and interpretation [x] Patient assessment and monitoring of vital signs [x] Documentation [x] Medication orders and management Subjective Date of service: 04/06/19 Interval history: Patient seen and examined On cont sedation, intubated on vent Family at bedside- updated Objective - Constitutional Vitals: Vital Signs - 12hr 03/30/19 03/30/19 03/30/19 02:45 03:00 03:15 Temperature Pulse Rate 109 H 99 H 108 H Pulse Rate [ Left Radial] Respiratory 15 14 15 Rate Blood Pressure 133/83 115/67 115/67 O2 Sat by Pulse 79 L 100 Oximetry 03/30/19 03/30/19 03/30/19 03:30 03:38 03:45 Temperature 98.6 F Pulse Rate 120 H 123 H Pulse Rate [ Left Radial] Respiratory 12 12 Rate Blood Pressure 135/74 135/74 O2 Sat by Pulse Oximetry 03/30/19 03/30/19 03/30/19 04:00 04:10 04:15 Temperature Pulse Rate 124 H 124 H 123 H Pulse Rate [ Left Radial] Respiratory 17 11 L Rate Blood Pressure 131/76 131/79 131/76 O2 Sat by Pulse Oximetry 03/30/19 03/30/19 03/30/19 04:31 04:45 05:01 Temperature Pulse Rate 123 H 125 H 121 H Pulse Rate [ Left Radial] Respiratory 11 L 11 L 16 Rate Blood Pressure 63/25 63/25 41/18 O2 Sat by Pulse Oximetry 03/30/19 03/30/19 03/30/19 05:15 05:30 05:45 Temperature Pulse Rate 108 H 106 H 107 H Pulse Rate [ Left Radial] Respiratory 14 14 14 Rate Blood Pressure 133/82 120/80 133/85 O2 Sat by Pulse 100 100 100 Oximetry 03/30/19 03/30/19 03/30/19 06:00 06:15 06:30 Temperature Pulse Rate 109 H 113 H 116 H Pulse Rate [ 117 H Left Radial] Respiratory 7 L 10 L 15 Rate Blood Pressure 142/86 138/91 145/94 O2 Sat by Pulse 100 100 100 Oximetry 03/30/19 03/30/19 03/30/19 06:45 07:00 07:15 Temperature Pulse Rate 109 H 105 H 103 H Pulse Rate [ Left Radial] Respiratory 14 14 14 Rate Blood Pressure 138/86 134/84 132/87 O2 Sat by Pulse 100 100 100 Oximetry 03/30/19 03/30/19 03/30/19 07:30 07:42 07:45 Temperature 97.8 F Pulse Rate 103 H 102 H Pulse Rate [ Left Radial] Respiratory 14 14 Rate Blood Pressure 144/84 141/93 O2 Sat by Pulse 100 100 Oximetry 03/30/19 03/30/19 03/30/19 08:00 08:15 08:30 Temperature Pulse Rate 101 H 102 H 101 H Pulse Rate [ 102 H Left Radial] Respiratory 14 14 14 Rate Blood Pressure 121/83 120/80 130/85 O2 Sat by Pulse 100 100 100 Oximetry 03/30/19 03/30/19 03/30/19 08:45 09:00 09:15 Temperature Pulse Rate 103 H 101 H 102 H Pulse Rate [ Left Radial] Respiratory 14 14 14 Rate Blood Pressure 123/80 131/84 138/84 O2 Sat by Pulse 100 100 100 Oximetry 03/30/19 03/30/19 03/30/19 09:30 09:45 09:55 Temperature Pulse Rate 105 H 107 H 107 H Pulse Rate [ Left Radial] Respiratory 14 14 Rate Blood Pressure 130/83 128/86 136/87 O2 Sat by Pulse 100 100 100 Oximetry 03/30/19 03/30/19 03/30/19 10:00 10:15 10:30 Temperature Pulse Rate 106 H 108 H 108 H Pulse Rate [ 103 H Left Radial] Respiratory 14 14 14 Rate Blood Pressure 136/87 139/83 129/85 O2 Sat by Pulse 100 100 100 Oximetry 03/30/19 03/30/19 03/30/19 10:45 11:00 11:15 Temperature Pulse Rate 108 H 109 H 110 H Pulse Rate [ Left Radial] Respiratory 14 14 14 Rate Blood Pressure 127/86 141/86 121/77 O2 Sat by Pulse 100 100 100 Oximetry 03/30/19 03/30/19 03/30/19 11:30 11:45 12:00 Temperature 98.4 F Pulse Rate 112 H 113 H 120 H Pulse Rate [ Left Radial] Respiratory 14 12 14 Rate Blood Pressure 122/75 113/68 120/66 O2 Sat by Pulse 100 100 100 Oximetry 03/30/19 03/30/19 03/30/19 12:15 12:30 12:42 Temperature Pulse Rate 124 H 127 H 125 H Pulse Rate [ Left Radial] Respiratory 16 14 1 L Rate Blood Pressure 115/68 123/69 124/69 O2 Sat by Pulse 100 100 100 Oximetry 03/30/19 03/30/19 03/30/19 12:45 13:00 13:15 Temperature Pulse Rate 128 H 128 H 128 H Pulse Rate [ Left Radial] Respiratory 16 21 24 Rate Blood Pressure 124/69 134/69 131/71 O2 Sat by Pulse 100 100 100 Oximetry 03/30/19 03/30/19 03/30/19 13:30 13:45 14:00 Temperature Pulse Rate 132 H 126 H 112 H Pulse Rate [ Left Radial] Respiratory 14 14 14 Rate Blood Pressure 146/73 128/71 120/68 O2 Sat by Pulse 100 100 100 Oximetry 03/30/19 14:15 Temperature Pulse Rate 111 H Pulse Rate [ Left Radial] Respiratory 14 Rate Blood Pressure 117/65 O2 Sat by Pulse 100 Oximetry General appearance: Present: cachectic, other (intubated and sedated) - EENT Eyes: no scleral icterus, no conjunctival injection ENT: poor dentition, no thrush, no ulcerations Ears: bilateral: normal - Neck Neck: supple, normal ROM - Respiratory Respiratory effort: other (on mechanical ventilation) Respiratory: bilateral: CTA - Cardiovascular Rhythm: other (tachycardic) Heart Sounds: Present: S1 & S2. Absent: gallop, rub Extremities: pulses intact, No edema, normal color, abnormal (contracted extremities) - Gastrointestinal General gastrointestinal: Present: soft, non-tender, non-distended, normal bowel sounds - Integumentary Integumentary: clear, warm, dry - Musculoskeletal Musculoskeletal: 1, strength equal bilaterally - Neurologic Neurologic: no gait normal - Psychiatric Psychiatric: other (unable to assess) - Labs CBC & Chem 7: 03/29/19 19:56 03/30/19 07:41 Labs: Abnormal lab results 03/29/19 03/29/19 03/29/19 Range/Units 19:56 20:42 20:42 MCH 27 L (28-32) pg RDW 15.7 H (13.2-15.2) % [place] % (Auto) 8.5 H (0.0-7.3) % Seg Neutrophils % 74.2 H (40.0-70.0) % APTT 22.3 L (24.2-36.6) Sec. POC ABG pO2 (80-105) ABG pO2 (80.0-90.0) mm Hg ABG Hemoglobin (12.0-16.0) gm/dl Sodium 135 L (137-145) mmol/L Potassium 5.4 H (3.6-5.0) mmol/L Chloride 94.4 L (98-107) mmol/L Carbon Dioxide (22-30) mmol/L Creatinine (0.7-1.2) mg/dL Lactic Acid (0.7-2.0) mmol/L Alkaline Phosphatase 154 H (35-129) units/L Total Protein 5.9 L (6.3-8.2) g/dL Albumin 3.4 L (3.9-5) g/dL Urine WBC (Auto) (0.0-6.0) /HPF 03/29/19 03/29/19 03/29/19 Range/Units 20:42 21:10 21:29 MCH (28-32) pg RDW (13.2-15.2) % [place] % (Auto) (0.0-7.3) % Seg Neutrophils % (40.0-70.0) % APTT (24.2-36.6) Sec. POC ABG pO2 285 H (80-105) ABG pO2 (80.0-90.0) mm Hg ABG Hemoglobin (12.0-16.0) gm/dl Sodium (137-145) mmol/L Potassium (3.6-5.0) mmol/L Chloride (98-107) mmol/L Carbon Dioxide (22-30) mmol/L Creatinine (0.7-1.2) mg/dL Lactic Acid 2.60 H* (0.7-2.0) mmol/L Alkaline Phosphatase (35-129) units/L Total Protein (6.3-8.2) g/dL Albumin (3.9-5) g/dL Urine WBC (Auto) > 182.0 H (0.0-6.0) /HPF 03/30/19 03/30/19 Range/Units 04:14 07:41 MCH (28-32) pg RDW (13.2-15.2) % [place] % (Auto) (0.0-7.3) % Seg Neutrophils % (40.0-70.0) % APTT (24.2-36.6) Sec. POC ABG pO2 (80-105) ABG pO2 154.0 H (80.0-90.0) mm Hg ABG Hemoglobin 11.3 L (12.0-16.0) gm/dl Sodium (137-145) mmol/L Potassium (3.6-5.0) mmol/L Chloride (98-107) mmol/L Carbon Dioxide 16 L D (22-30) mmol/L Creatinine 0.5 L (0.7-1.2) mg/dL Lactic Acid (0.7-2.0) mmol/L Alkaline Phosphatase (35-129) units/L Total Protein (6.3-8.2) g/dL Albumin (3.9-5) g/dL Urine WBC (Auto) (0.0-6.0) /HPF
--- NOTE | 2019-03-30 17:36 | XRay Report ---
ABDOMEN 1 VIEW(S) INDICATION / CLINICAL INFORMATION: feeding tube placement. COMPARISON: None available. FINDINGS: TUBES / LINES: Feeding tube is seen with the tip in the region of the fundus of the stomach. BOWEL GAS PATTERN: No significant abnormality. FREE AIR / EXTRALUMINAL GAS: None seen. ADDITIONAL FINDINGS: No significant additional findings. IMPRESSION: 1. Feeding tube in stomach Signer Name: Levi Shaffer MD Signed: 03/30/2019 5:31 PM Workstation Name: [id number]
[2019-03-30] MEDS: ASPIRIN EC 81 MG TAB PO SCH (19:54)
[2019-03-30] MEDS: hydroCHLOROthiazide 25 MG TAB PO SCH (19:55)
[2019-03-30] MEDS: VENLAFAXINE XR 75 MG CAP PO SCH (19:58)
[2019-03-30] MEDS: LATANOPROST 0.005% OPHTH SOLN 2.5 ML OU SCH (21:58)
[2019-03-31] MEDS: cefTRIAXone/NS 1 GM/50 ML 1 GM/50 ML BAG IV SCH (06:14)
[2019-03-31] MEDS: HEPARIN 5,000 UNIT/1 ML VIAL SUB-Q SCH ×3 (06:14→21:36)
--- NOTE | 2019-03-31 06:29 | XRay Report ---
. CHEST 1 VIEW INDICATION: follow up respiratory failure. COMPARISON: Previous day. FINDINGS: Support devices: Feeding tube and endotracheal tube in satisfactory position. Heart: Within normal limits. Lungs/Pleura: Colonic distention is partially imaged at the upper abdomen. Additional findings: None. IMPRESSION: 1. No lung infiltrate. 2. Development of colonic distention. Signer Name: Jayy Lea MD Signed: 03/31/2019 6:24 AM Workstation Name: [id number]
[2019-03-31] MEDS: SODIUM CHLORIDE 0.9% 1000 ML 1,000 ML IV SCH (09:51)
[2019-03-31] MEDS: ASPIRIN EC 81 MG TAB PO SCH (09:52)
[2019-03-31] MEDS: hydroCHLOROthiazide 25 MG TAB PO SCH (09:52)
[2019-03-31] MEDS: levETIRAcetam 500 MG in DEXTROSE 5% IN WATER 100 ML IV SCH ×2 (09:53→22:42)
[2019-03-31] MEDS: VENLAFAXINE XR 75 MG CAP PO SCH (09:53)
--- NOTE | 2019-03-31 12:46 | Progress Note ---
Assessment and Plan Acute hypoxemic respiratory failure on MVS Status epilepticus UTI h/o Multiple sclerosis Acute toxic-metabolic encephalopathy Severe protein calorie malnutrition PLAN -Awaiting neurology consult and EEG report -SBT today, if weaning parameters and hemodynamics are acceptable, will liberate from mechanical ventilatory support -Discussed with RT/RN at the bedside -Updated the son re care plan -VAP bundle addressed -Aspiration precautions, HOB>40 degrees - Lung protective strategies -ABG in am -Daily SAT, SBT as tolerated -Keep off sedation to allow for evaluation of mental status -Tube feeding with aspiration precautions -Antibiotics for UTI -VTE prophylaxis -Stress ulcer prophylaxis - Accuchecks with glycemic control for SSI (While critically ill target blood glucose of 140-180 mg/dL; avoid hypoglycemia) - mobility protocol for pressure ulcer prevention - Monitor hemodynamics closely -Monitor electrolyte profile closely and replete as indicated -Chronic home medications -Optimize nutritional status -Mobility to prevent pressure ulcers CONDITION: CRITICAL PROGNOSIS: GUARDED CODE STATUS: FULL CODE The high probability of a clinically significant, sudden or life threatening deterioration of the [multiple] system(s) required my full and direct attention, intervention and personal management. The aggregate critical care time was [30] minutes. This time is in addition to time spent performing reported procedures but includes the following: [x] Data Review and interpretation [x] Patient assessment and monitoring of vital signs [x] Documentation [x] Medication orders and management Subjective Date of service: 03/31/19 Interval history: Patient is seen today for: acute hypoxemic respiraotry failure on MVS; Status asthmaticus: acute toxic-metabolic encephalopathy Seen and examined at bedside; 24hour events reviewed; nursing and respiratory care staff consulted; no adverse overnight events reported to me; resting peacefully in bed on MVS via ETT, opens eyes on command and follow some basic instructions. Vitals, labs, medications, chart reviewed No fevers, no vomiting, no diarrhea, no seizures Son is at the bedside Objective - Exam Narrative Exam: Vitals reviewed General appearance: Present: cachectic, open eyes with verbal commend ETT to MVS, no patient-ventilator dys-synchrony. ETT at 23cm at the lip - EENT Small bowel feeding tube in nares Eyes: no scleral icterus, no conjunctival injection ENT: poor dentition, no thrush, no ulcerations Ears: bilateral: normal - Neck Neck: supple, normal ROM - Respiratory Respiratory effort: normal Respiratory: bilateral: CTA - Cardiovascular Rhythm: other (tachycardic) Heart Sounds: Present: S1 & S2. Absent: gallop, rub Extremities: pulses intact, No edema, normal color, abnormal (contracted extremities) - Gastrointestinal General gastrointestinal: Present: soft, non-tender, non-distended, normal bowel sounds - Integumentary Integumentary: clear, warm, dry - Musculoskeletal Musculoskeletal: - Neurologic Neurologic: spontaneous eye opening and inconsistently obeying simple commands - Psychiatric Psychiatric: other (unable to assess) Vital Signs - 12hr 03/31/19 03/31/19 03/31/19 01:00 02:01 03:00 Temperature Pulse Rate 123 H 129 H 122 H Pulse Rate [ From Monitor] Pulse Rate [ Left Radial] Respiratory 13 24 13 Rate Blood Pressure 138/89 162/81 133/80 O2 Sat by Pulse 99 99 99 Oximetry 03/31/19 03/31/19 03/31/19 04:00 04:04 04:30 Temperature 99.0 F Pulse Rate 117 H 116 H Pulse Rate [ From Monitor] Pulse Rate [ 120 H Left Radial] Respiratory 13 14 Rate Blood Pressure 124/77 124/77 O2 Sat by Pulse 99 100 Oximetry 03/31/19 03/31/19 03/31/19 05:01 06:00 07:00 Temperature Pulse Rate 117 H 112 H 125 H Pulse Rate [ From Monitor] Pulse Rate [ Left Radial] Respiratory 11 L 14 10 L Rate Blood Pressure 124/77 123/81 123/87 O2 Sat by Pulse 100 100 Oximetry 03/31/19 03/31/19 03/31/19 08:00 08:35 08:41 Temperature 98.4 F Pulse Rate 122 H 121 H Pulse Rate [ 122 H From Monitor] Pulse Rate [ Left Radial] Respiratory 12 26 H 26 H Rate Blood Pressure 122/92 122/92 O2 Sat by Pulse 96 100 100 Oximetry 03/31/19 03/31/19 03/31/19 09:01 10:00 11:00 Temperature Pulse Rate 116 H 118 H 119 H Pulse Rate [ From Monitor] Pulse Rate [ Left Radial] Respiratory 20 17 16 Rate Blood Pressure 143/96 137/92 127/79 O2 Sat by Pulse 100 100 100 Oximetry 03/31/19 03/31/19 11:25 12:00 Temperature Pulse Rate 117 H Pulse Rate [ From Monitor] Pulse Rate [ Left Radial] Respiratory 21 Rate Blood Pressure 127/79 O2 Sat by Pulse 100 100 Oximetry CBC and BMP: 04/01/19 05:22 04/02/19 06:33 ABG, PT/INR, D-dimer: ABG POC ABG pH 7.503 (7.35-7.45) H 03/31/19 11:10 ABG pH 7.406 pH Units (7.350-7.450) 03/30/19 04:14 POC ABG pCO2 38.8 (35-45) 03/31/19 11:10 ABG pCO2 37.0 mm Hg 03/30/19 04:14 POC ABG pO2 121 (80-105) H 03/31/19 11:10 ABG pO2 154.0 mm Hg (80.0-90.0) H 03/30/19 04:14 POC ABG HCO3 30.5 (22-26 mml/L) 03/31/19 11:10 POC ABG Total CO2 32 (23-27mmol/L) 03/31/19 11:10 POC ABG O2 Sat 99 03/31/19 11:10 ABG O2 Saturation 98.9 % (95.0-99.0) 03/30/19 04:14 PT/INR, D-dimer PT 14.2 Sec. (12.2-14.9) 03/29/19 20:42 INR 1.11 (0.87-1.13) 03/29/19 20:42 Abnormal lab findings: Abnormal Labs 03/29/19 03/29/19 03/29/19 19:56 20:42 20:42 MCH 27 L RDW 15.7 H [place] % (Auto) 8.5 H Seg Neutrophils % 74.2 H APTT 22.3 L POC ABG pH POC ABG pCO2 POC ABG pO2 ABG pO2 ABG Hemoglobin Sodium 135 L Potassium 5.4 H Chloride 94.4 L Carbon Dioxide Creatinine Lactic Acid Alkaline Phosphatase 154 H Total Protein 5.9 L Albumin 3.4 L Urine WBC (Auto) 03/29/19 03/29/19 03/29/19 20:42 21:10 21:29 MCH RDW [place] % (Auto) Seg Neutrophils % APTT POC ABG pH POC ABG pCO2 POC ABG pO2 285 H ABG pO2 ABG Hemoglobin Sodium Potassium Chloride Carbon Dioxide Creatinine Lactic Acid 2.60 H* Alkaline Phosphatase Total Protein Albumin Urine WBC (Auto) > 182.0 H 03/30/19 03/30/19 03/31/19 04:14 07:41 05:48 MCH RDW [place] % (Auto) Seg Neutrophils % APTT POC ABG pH 7.557 H POC ABG pCO2 32.9 L POC ABG pO2 157 H ABG pO2 154.0 H ABG Hemoglobin 11.3 L Sodium Potassium Chloride Carbon Dioxide 16 L D Creatinine 0.5 L Lactic Acid Alkaline Phosphatase Total Protein Albumin Urine WBC (Auto) 03/31/19 11:10 MCH RDW [place] % (Auto) Seg Neutrophils % APTT POC ABG pH 7.503 H POC ABG pCO2 POC ABG pO2 121 H ABG pO2 ABG Hemoglobin Sodium Potassium Chloride Carbon Dioxide Creatinine Lactic Acid Alkaline Phosphatase Total Protein Albumin Urine WBC (Auto)
--- NOTE | 2019-03-31 14:01 | Progress Note ---
Assessment and Plan / Status epilepticus Patient has been placed on IV Keppra. She will be closely monitored in the intensive care unit. placed a consult to neurology for further evaluation and recommendation. obtain EEG /Acute respiratory failure required intubation - cont nebs, pulmonary consulted - weaned off vent, extubated today / UTI (urinary tract infection) She has been placed on empiric IV antibiotics. / Multiple sclerosis Patient has known history of multiple sclerosis. She resides in a alf. Supportive care /Severe MIGUELINA - start on TF, nutrition consult /Hyperkalemia, resolved /DVT prophylaxis She is placed on subcutaneous heparin. / Full code status The high probability of a clinically significant, sudden or life threatening deterioration of the [multiple] system(s) required my full and direct attention, intervention and personal management. The aggregate critical care time was [32] minutes. This time is in addition to time spent performing reported procedures but includes the following: [x] Data Review and interpretation [x] Patient assessment and monitoring of vital signs [x] Documentation [x] Medication orders and management Subjective Date of service: 03/31/19 Interval history: Patient seen and examined extubated, on N/C, NG tube on place Family at bedside- updated Objective - Exam Narrative Exam: General appearance: Present: cachectic, open eyes with verbal commend - EENT Eyes: no scleral icterus, no conjunctival injection ENT: poor dentition, no thrush, no ulcerations Ears: bilateral: normal - Neck Neck: supple, normal ROM - Respiratory Respiratory effort: normal Respiratory: bilateral: CTA - Cardiovascular Rhythm: other (tachycardic) Heart Sounds: Present: S1 & S2. Absent: gallop, rub Extremities: pulses intact, No edema, normal color, abnormal (contracted extremities) - Gastrointestinal General gastrointestinal: Present: soft, non-tender, non-distended, normal bowel sounds - Integumentary Integumentary: clear, warm, dry - Musculoskeletal Musculoskeletal: 1, generalized weakness - Neurologic Neurologic: no gait normal, bedbound with contracted extremities - Psychiatric Psychiatric: other (unable to assess) - Constitutional Vitals: Vital Signs - 12hr 03/31/19 03/31/19 03/31/19 03:00 04:00 04:04 Temperature 99.0 F Pulse Rate 122 H 117 H 116 H Pulse Rate [ From Monitor] Pulse Rate [ Left Radial] Respiratory 13 13 Rate Blood Pressure 133/80 124/77 124/77 O2 Sat by Pulse 99 99 Oximetry 03/31/19 03/31/19 03/31/19 04:30 05:01 06:00 Temperature Pulse Rate 117 H 112 H Pulse Rate [ From Monitor] Pulse Rate [ 120 H Left Radial] Respiratory 14 11 L 14 Rate Blood Pressure 124/77 123/81 O2 Sat by Pulse 100 100 Oximetry 03/31/19 03/31/19 03/31/19 07:00 08:00 08:35 Temperature 98.4 F Pulse Rate 125 H 122 H Pulse Rate [ 122 H From Monitor] Pulse Rate [ Left Radial] Respiratory 10 L 12 26 H Rate Blood Pressure 123/87 122/92 O2 Sat by Pulse 100 96 100 Oximetry 03/31/19 03/31/19 03/31/19 08:41 09:01 10:00 Temperature Pulse Rate 121 H 116 H 118 H Pulse Rate [ From Monitor] Pulse Rate [ Left Radial] Respiratory 26 H 20 17 Rate Blood Pressure 122/92 143/96 137/92 O2 Sat by Pulse 100 100 100 Oximetry 03/31/19 03/31/19 03/31/19 11:00 11:25 12:00 Temperature 99.8 F H Pulse Rate 119 H 117 H Pulse Rate [ 117 H From Monitor] Pulse Rate [ Left Radial] Respiratory 16 21 Rate Blood Pressure 127/79 127/79 O2 Sat by Pulse 100 100 100 Oximetry 03/31/19 13:00 Temperature Pulse Rate 124 H Pulse Rate [ From Monitor] Pulse Rate [ Left Radial] Respiratory 14 Rate Blood Pressure 142/81 O2 Sat by Pulse 98 Oximetry - Labs CBC & Chem 7: 04/01/19 05:22 04/01/19 05:22 Labs: Abnormal lab results 03/31/19 03/31/19 Range/Units 05:48 11:10 POC ABG pH 7.557 H 7.503 H (7.35-7.45) POC ABG pCO2 32.9 L (35-45) POC ABG pO2 157 H 121 H (80-105)
[2019-03-31] MEDS: LATANOPROST 0.005% OPHTH SOLN 2.5 ML OU SCH (17:29)
--- NOTE | 2019-04-01 03:07 | XRay Report ---
CHEST 1 VIEW INDICATION: follow up respiratory failure. COMPARISON: Previous day. FINDINGS: Support devices: Feeding tube unchanged. Heart: Within normal limits. Lungs/Pleura: No acute air space or interstitial disease. Additional findings: None. IMPRESSION: No interval change. Signer Name: Jayy Lea MD Signed: 04/01/2019 3:02 AM Workstation Name: [id number]
[2019-04-01 05:50] LABS: Basophils % (Auto) 0.4 % (0.0-1.8); Eosinophils % (Auto) 0.4 % (0.0-4.3); Hematocrit 34.4 % (30.3-42.9); Hemoglobin 11.5 gm/dl (10.1-14.3); Lymphocytes # (Auto) 1.4 K/mm3 (1.2-5.4); Mean Corpuscular HGB Conc 33 % (30-34); Mean Corpuscular Volume 80 fl (79-97); Monocytes # (Auto) 0.8 K/mm3 (0.0-0.8); Monocytes % (Auto) 10.5 % (0.0-7.3); Platelet Count 337 K/mm3 (140-440); Red Blood Count 4.29 M/mm3 (3.65-5.03); Red Cell Distribution Width 15.4 % (13.2-15.2)
[2019-04-01 06:05] LABS: BUN/Creatinine Ratio 13; Blood Urea Nitrogen 4 mg/dL (7-17); Hemolysis Index 3
[2019-04-01] MEDS: HEPARIN 5,000 UNIT/1 ML VIAL SUB-Q SCH ×3 (06:09→22:16)
[2019-04-01] MEDS: cefTRIAXone/NS 1 GM/50 ML 1 GM/50 ML BAG IV SCH (06:09)
[2019-04-01] MEDS: POTASSIUM CHLORIDE 10 MEQ 10 MEQ/100 ML BAG IV SCH ×6 (07:06→23:16)
[2019-04-01] MEDS ORDERED: POTASSIUM CHLORIDE 20 MEQ PACKET FEEDTUBE ONE (07:15)
--- NOTE | 2019-04-01 08:20 | Progress Note ---
Subjective Date of service: 04/01/19 Interval history: no further seizures are noted the EEG is pending today seizure meds are effective at this time Objective - Vital Sign Vital Signs - 12hr 03/31/19 03/31/19 03/31/19 21:00 22:00 22:50 Temperature Pulse Rate 114 H 110 H 110 H Pulse Rate [ From Monitor] Respiratory 21 20 20 Rate Blood Pressure 136/75 128/79 128/79 O2 Sat by Pulse 99 100 100 Oximetry 03/31/19 03/31/19 04/01/19 23:00 23:11 00:00 Temperature Pulse Rate 109 H 108 H 109 H Pulse Rate [ 113 H From Monitor] Respiratory 21 20 19 Rate Blood Pressure 138/87 138/87 138/87 O2 Sat by Pulse 100 100 100 Oximetry 04/01/19 04/01/19 04/01/19 01:00 02:00 03:00 Temperature Pulse Rate 110 H 112 H 111 H Pulse Rate [ From Monitor] Respiratory 16 16 25 H Rate Blood Pressure 139/83 135/75 135/75 O2 Sat by Pulse 100 99 100 Oximetry 04/01/19 04/01/19 04/01/19 04:00 05:00 06:00 Temperature 98.8 F Pulse Rate 106 H 111 H 109 H Pulse Rate [ 113 H From Monitor] Respiratory 21 22 19 Rate Blood Pressure 127/75 122/80 130/80 O2 Sat by Pulse 100 100 100 Oximetry 04/01/19 04/01/19 07:00 08:00 Temperature Pulse Rate 110 H 116 H Pulse Rate [ From Monitor] Respiratory 18 10 L Rate Blood Pressure 115/69 127/77 O2 Sat by Pulse 100 Oximetry - Laboratory Findings CBC and BMP: 04/01/19 05:22 04/01/19 05:22 Abnormal Lab Findings: Abnormal Labs 03/29/19 03/29/19 03/29/19 19:56 20:42 20:42 MCH 27 L RDW 15.7 H [place] % (Auto) 8.5 H Seg Neutrophils % 74.2 H APTT 22.3 L POC ABG pH POC ABG pCO2 POC ABG pO2 ABG pO2 ABG Hemoglobin Sodium 135 L Potassium 5.4 H Chloride 94.4 L Carbon Dioxide BUN Creatinine Glucose POC Glucose Lactic Acid Alkaline Phosphatase 154 H Total Protein 5.9 L Albumin 3.4 L Urine WBC (Auto) 1103/29/19 03/29/19 20:42 21:10 21:29 MCH RDW [place] % (Auto) Seg Neutrophils % APTT POC ABG pH POC ABG pCO2 POC ABG pO2 285 H ABG pO2 ABG Hemoglobin Sodium Potassium Chloride Carbon Dioxide BUN Creatinine Glucose POC Glucose Lactic Acid 2.60 H* Alkaline Phosphatase Total Protein Albumin Urine WBC (Auto) > 182.0 H 03/30/19 03/30/19 03/31/19 04:14 07:41 05:48 MCH RDW [place] % (Auto) Seg Neutrophils % APTT POC ABG pH 7.557 H POC ABG pCO2 32.9 L POC ABG pO2 157 H ABG pO2 154.0 H ABG Hemoglobin 11.3 L Sodium Potassium Chloride Carbon Dioxide 16 L D BUN Creatinine 0.5 L Glucose POC Glucose Lactic Acid Alkaline Phosphatase Total Protein Albumin Urine WBC (Auto) 03/31/19 03/31/19 04/01/19 11:10 21:55 05:22 MCH 27 L RDW 15.4 H [place] % (Auto) 10.5 H Seg Neutrophils % APTT POC ABG pH 7.503 H POC ABG pCO2 POC ABG pO2 121 H ABG pO2 ABG Hemoglobin Sodium Potassium Chloride Carbon Dioxide BUN Creatinine Glucose POC Glucose 120 H Lactic Acid Alkaline Phosphatase Total Protein Albumin Urine WBC (Auto) 04/01/19 05:22 MCH RDW [place] % (Auto) Seg Neutrophils % APTT POC ABG pH POC ABG pCO2 POC ABG pO2 ABG pO2 ABG Hemoglobin Sodium Potassium 2.2 L* D Chloride 93.2 L Carbon Dioxide BUN 4 L Creatinine 0.3 L Glucose 145 H POC Glucose Lactic Acid Alkaline Phosphatase Total Protein Albumin Urine WBC (Auto)
--- NOTE | 2019-04-01 08:36 | Progress Note ---
Assessment and Plan Acute Hypoxemic Respiratory Failure s/p MVS Status epilepticus UTI (urinary tract infection) Multiple sclerosis Severe MIGUELINA Hyperkalemia - continue Keppra as AED - fall precautions - continue empiric antibiotics for aspiration PNA, antibiotics for VRE, de- escalate based on cultures and clinical status - continue aspiration precautions; HOB > 40 degrees - continue accuchecks with glycemic control per SSI for target BG < 180 mg/dl - mobility protocol for pressure ulcer prevention - Monitor hemodynamics closely - Monitor electrolyte profile closely and replete as indicated - continue GI & VTE prophylaxis - continue other care per attending / other consultants .... re-evaluate in am & prn CODE STATUS: FULL The high probability of a clinically significant, sudden or life threatening deterioration of the [multiple] system(s) required my full and direct attention, intervention and personal management. The aggregate critical care time was [32] minutes. This time is in addition to time spent performing reported procedures but includes the following: [x] Data Review and interpretation [x] Patient assessment and monitoring of vital signs [x] Documentation [x] Medication orders and management Subjective Date of service: 04/01/19 Principal diagnosis: Ac. Hypoxemic Resp. Failure; Status epilepticus; UTI; Multiple sclerosis Interval history: Patient is seen today for: Acute Hypoxemic Respiratory Failure s/p MVS; Status epilepticus; UTI; Multiple sclerosis; Hyperkalemia Seen and examined at bedside; 24hour events reviewed; nursing and respiratory care staff consulted; no adverse overnight events reported to me; Objective Vital Signs - 12hr 03/31/19 03/31/19 03/31/19 21:00 22:00 22:50 Temperature Pulse Rate 114 H 110 H 110 H Pulse Rate [ From Monitor] Respiratory 21 20 20 Rate Blood Pressure 136/75 128/79 128/79 O2 Sat by Pulse 99 100 100 Oximetry 03/31/19 03/31/19 04/01/19 23:00 23:11 00:00 Temperature Pulse Rate 109 H 108 H 109 H Pulse Rate [ 113 H From Monitor] Respiratory 21 20 19 Rate Blood Pressure 138/87 138/87 138/87 O2 Sat by Pulse 100 100 100 Oximetry 04/01/19 04/01/19 04/01/19 01:00 02:00 03:00 Temperature Pulse Rate 110 H 112 H 111 H Pulse Rate [ From Monitor] Respiratory 16 16 25 H Rate Blood Pressure 139/83 135/75 135/75 O2 Sat by Pulse 100 99 100 Oximetry 04/01/19 04/01/19 04/01/19 04:00 05:00 06:00 Temperature 98.8 F Pulse Rate 106 H 111 H 109 H Pulse Rate [ 113 H From Monitor] Respiratory 21 22 19 Rate Blood Pressure 127/75 122/80 130/80 O2 Sat by Pulse 100 100 100 Oximetry 04/01/19 04/01/19 07:00 08:00 Temperature 98.4 F Pulse Rate 110 H 116 H Pulse Rate [ From Monitor] Respiratory 18 10 L Rate Blood Pressure 115/69 127/77 O2 Sat by Pulse 100 Oximetry CBC and BMP: 04/01/19 05:22 04/01/19 05:22 ABG, PT/INR, D-dimer: ABG POC ABG pH 7.503 (7.35-7.45) H 03/31/19 11:10 ABG pH 7.406 pH Units (7.350-7.450) 03/30/19 04:14 POC ABG pCO2 38.8 (35-45) 03/31/19 11:10 ABG pCO2 37.0 mm Hg 03/30/19 04:14 POC ABG pO2 121 (80-105) H 03/31/19 11:10 ABG pO2 154.0 mm Hg (80.0-90.0) H 03/30/19 04:14 POC ABG HCO3 30.5 (22-26 mml/L) 03/31/19 11:10 POC ABG Total CO2 32 (23-27mmol/L) 03/31/19 11:10 POC ABG O2 Sat 99 03/31/19 11:10 ABG O2 Saturation 98.9 % (95.0-99.0) 03/30/19 04:14 PT/INR, D-dimer PT 14.2 Sec. (12.2-14.9) 03/29/19 20:42 INR 1.11 (0.87-1.13) 03/29/19 20:42 Abnormal lab findings: Abnormal Labs 03/29/19 03/29/19 03/29/19 19:56 20:42 20:42 MCH 27 L RDW 15.7 H [place] % (Auto) 8.5 H Seg Neutrophils % 74.2 H APTT 22.3 L POC ABG pH POC ABG pCO2 POC ABG pO2 ABG pO2 ABG Hemoglobin Sodium 135 L Potassium 5.4 H Chloride 94.4 L Carbon Dioxide BUN Creatinine Glucose POC Glucose Lactic Acid Alkaline Phosphatase 154 H Total Protein 5.9 L Albumin 3.4 L Urine WBC (Auto) 03/29/19 03/29/19 03/29/19 20:42 21:10 21:29 MCH RDW [place] % (Auto) Seg Neutrophils % APTT POC ABG pH POC ABG pCO2 POC ABG pO2 285 H ABG pO2 ABG Hemoglobin Sodium Potassium Chloride Carbon Dioxide BUN Creatinine Glucose POC Glucose Lactic Acid 2.60 H* Alkaline Phosphatase Total Protein Albumin Urine WBC (Auto) > 182.0 H 03/30/19 03/30/19 03/31/19 04:14 07:41 05:48 MCH RDW [place] % (Auto) Seg Neutrophils % APTT POC ABG pH 7.557 H POC ABG pCO2 32.9 L POC ABG pO2 157 H ABG pO2 154.0 H ABG Hemoglobin 11.3 L Sodium Potassium Chloride Carbon Dioxide 16 L D BUN Creatinine 0.5 L Glucose POC Glucose Lactic Acid Alkaline Phosphatase Total Protein Albumin Urine WBC (Auto) 03/31/19 03/31/19 04/01/19 11:10 21:55 05:22 MCH 27 L RDW 15.4 H [place] % (Auto) 10.5 H Seg Neutrophils % APTT POC ABG pH 7.503 H POC ABG pCO2 POC ABG pO2 121 H ABG pO2 ABG Hemoglobin Sodium Potassium Chloride Carbon Dioxide BUN Creatinine Glucose POC Glucose 120 H Lactic Acid Alkaline Phosphatase Total Protein Albumin Urine WBC (Auto) 04/01/19 05:22 MCH RDW [place] % (Auto) Seg Neutrophils % APTT POC ABG pH POC ABG pCO2 POC ABG pO2 ABG pO2 ABG Hemoglobin Sodium Potassium 2.2 L* D Chloride 93.2 L Carbon Dioxide BUN 4 L Creatinine 0.3 L Glucose 145 H POC Glucose Lactic Acid Alkaline Phosphatase Total Protein Albumin Urine WBC (Auto)
[2019-04-01] MEDS: POTASSIUM CHLORIDE 20 MEQ PACKET PO SCH (09:35)
[2019-04-01] MEDS: hydroCHLOROthiazide 25 MG TAB PO SCH (09:36)
[2019-04-01] MEDS: ASPIRIN EC 81 MG TAB PO SCH (09:36)
[2019-04-01] MEDS: VENLAFAXINE XR 75 MG CAP PO SCH (09:36)
[2019-04-01] MEDS: levETIRAcetam 500 MG in DEXTROSE 5% IN WATER 100 ML IV SCH ×2 (09:38→22:15)
[2019-04-01] MEDS ORDERED: MAGNESIUM SULFATE 2 GM/50 ML BAG IV ONE (14:00)
--- NOTE | 2019-04-01 15:01 | Progress Note ---
Assessment and Plan Acute hypoxemic respiratory failure on MVS Status epilepticus UTI h/o Multiple sclerosis Acute toxic-metabolic encephalopathy Severe protein calorie malnutrition PLAN -VAP bundle addressed -Aspiration precautions, HOB>40 degrees - Lung protective strategies -ABG in am -Daily SAT, SBT as tolerated -Keep off sedation to allow for evaluation of mental status -Place small bowel feeding tube and start tube feeding -Antibitoics for UTI -VTE prophylaxis -Stress ulcer prophylaxis - Accuchecks with glycemic control for SSI (While critically ill target blood glucose of 140-180 mg/dL; avoid hypoglycemia) - mobility protocol for pressure ulcer prevention - Monitor hemodynamics closely -Monitor electrolyte profile closely and replete as indicated -Chronic home medications -Optimize nutritional status -EEG and Neurology consult -Mobility to prevent pressure ulcers Updated the brother and son at the bedside All their questions were answered Discussed with RT and RN CONDITION: CRITICAL PROGNOSIS: GUARDED CODE STATUS: FULL CODE Extensive discussions with the family. Patient has an advance directive that states she does not want prolongation of life, but they want full care and resuscitation in the event of cardiopulmonary arrest. The high probability of a clinically significant, sudden or life threatening deterioration of the [multiple] system(s) required my full and direct attention, intervention and personal management. The aggregate critical care time was [45] minutes. This time is in addition to time spent performing reported procedures but includes the following: [x] Data Review and interpretation [x] Patient assessment and monitoring of vital signs [x] Documentation [x] Medication orders and management Subjective Date of service: 04/01/19 Principal diagnosis: Ac. Hypoxemic Resp. Failure; Status epilepticus; UTI; Multiple sclerosis Interval history: Patient is seen today for: Seen and examined at bedside; 24hour events reviewed; nursing and respiratory care staff consulted; no adverse overnight events reported to me; Objective Vital Signs - 12hr 04/01/19 04/01/19 04/01/19 04:00 05:00 06:00 Temperature 98.8 F Pulse Rate 106 H 111 H 109 H Pulse Rate [ 113 H From Monitor] Respiratory 21 22 19 Rate Blood Pressure 127/75 122/80 130/80 O2 Sat by Pulse 100 100 100 Oximetry 04/01/19 04/01/19 04/01/19 07:00 08:00 09:00 Temperature 98.4 F Pulse Rate 110 H 116 H 113 H Pulse Rate [ 109 H From Monitor] Respiratory 18 20 14 Rate Blood Pressure 115/69 127/77 136/82 O2 Sat by Pulse 100 100 100 Oximetry 04/01/19 04/01/19 10:00 11:00 Temperature Pulse Rate 116 H 120 H Pulse Rate [ From Monitor] Respiratory 12 22 Rate Blood Pressure 126/87 132/88 O2 Sat by Pulse 100 Oximetry Constitutional: no acute distress, lethargic, other (ETT to mechanical vent, thin , unresponsive) Eyes: non-icteric ENT: oropharynx dry Effort: normal Ascultation: Bilateral: diminished breath sounds, rhonchi Cardiovascular: regular rate and rhythm, other (S1,S2, no murmurs, gallops, rubs) Gastrointestinal: normoactive bowel sounds, soft, non-tender Integumentary: normal Extremities: no cyanosis, no edema, pink and warm, pulses normal, no ischemia or petechiae Neurologic: pupils equal and round, unable to assess (on lorazepam) Psychiatric: other (unable to assess AMS) CBC and BMP: 04/01/19 05:22 04/02/19 06:33 ABG, PT/INR, D-dimer: ABG POC ABG pH 7.503 (7.35-7.45) H 03/31/19 11:10 ABG pH 7.406 pH Units (7.350-7.450) 03/30/19 04:14 POC ABG pCO2 38.8 (35-45) 03/31/19 11:10 ABG pCO2 37.0 mm Hg 03/30/19 04:14 POC ABG pO2 121 (80-105) H 03/31/19 11:10 ABG pO2 154.0 mm Hg (80.0-90.0) H 03/30/19 04:14 POC ABG HCO3 30.5 (22-26 mml/L) 03/31/19 11:10 POC ABG Total CO2 32 (23-27mmol/L) 03/31/19 11:10 POC ABG O2 Sat 99 03/31/19 11:10 ABG O2 Saturation 98.9 % (95.0-99.0) 03/30/19 04:14 PT/INR, D-dimer PT 14.2 Sec. (12.2-14.9) 03/29/19 20:42 INR 1.11 (0.87-1.13) 03/29/19 20:42 Abnormal lab findings: Abnormal Labs 03/29/19 03/29/19 03/29/19 19:56 20:42 20:42 MCH 27 L RDW 15.7 H [place] % (Auto) 8.5 H Seg Neutrophils % 74.2 H APTT 22.3 L POC ABG pH POC ABG pCO2 POC ABG pO2 ABG pO2 ABG Hemoglobin Sodium 135 L Potassium 5.4 H Chloride 94.4 L Carbon Dioxide BUN Creatinine Glucose POC Glucose Lactic Acid Alkaline Phosphatase 154 H Total Protein 5.9 L Albumin 3.4 L Urine WBC (Auto) 03/29/19 03/29/19 03/29/19 20:42 21:10 21:29 MCH RDW [place] % (Auto) Seg Neutrophils % APTT POC ABG pH POC ABG pCO2 POC ABG pO2 285 H ABG pO2 ABG Hemoglobin Sodium Potassium Chloride Carbon Dioxide BUN Creatinine Glucose POC Glucose Lactic Acid 2.60 H* Alkaline Phosphatase Total Protein Albumin Urine WBC (Auto) > 182.0 H 03/30/19 03/30/19 03/31/19 04:14 07:41 05:48 MCH RDW [place] % (Auto) Seg Neutrophils % APTT POC ABG pH 7.557 H POC ABG pCO2 32.9 L POC ABG pO2 157 H ABG pO2 154.0 H ABG Hemoglobin 11.3 L Sodium Potassium Chloride Carbon Dioxide 16 L D BUN Creatinine 0.5 L Glucose POC Glucose Lactic Acid Alkaline Phosphatase Total Protein Albumin Urine WBC (Auto) 03/31/19 03/31/19 04/01/19 11:10 21:55 05:22 MCH 27 L RDW 15.4 H [place] % (Auto) 10.5 H Seg Neutrophils % APTT POC ABG pH 7.503 H POC ABG pCO2 POC ABG pO2 121 H ABG pO2 ABG Hemoglobin Sodium Potassium Chloride Carbon Dioxide BUN Creatinine Glucose POC Glucose 120 H Lactic Acid Alkaline Phosphatase Total Protein Albumin Urine WBC (Auto) 04/01/19 05:22 MCH RDW [place] % (Auto) Seg Neutrophils % APTT POC ABG pH POC ABG pCO2 POC ABG pO2 ABG pO2 ABG Hemoglobin Sodium Potassium 2.2 L* D Chloride 93.2 L Carbon Dioxide BUN 4 L Creatinine 0.3 L Glucose 145 H POC Glucose Lactic Acid Alkaline Phosphatase Total Protein Albumin Urine WBC (Auto)
--- NOTE | 2019-04-01 15:38 | Progress Note ---
Assessment and Plan / Status epilepticus Patient has been placed on IV Keppra. She will be closely monitored in the intensive care unit. placed a consult to neurology for further evaluation and recommendation. obtain EEG /Acute respiratory failure required intubation - cont nebs, pulmonary consulted - weaned off vent, extubated 03/31/19 / UTI (urinary tract infection) She has been placed on empiric IV antibiotics. / Multiple sclerosis Patient has known history of multiple sclerosis. She resides in a senior living. Supportive care /Severe MIGUELINA - started on TF, nutrition consulted - passed swallow eval - will start oral diet /Hyperkalemia, resolved /Severe hypokalemia - replete /DVT prophylaxis She is placed on subcutaneous heparin. / Full code status Transfer to tele floor d/c to SNF when medically stable Brief History: 63-year-old female with known history of multiple sclerosis resident of a senior living been brought to the emergency room today with multiple seizures. Patient had about 2 seizures prior to arrival of EMS. In route to the hospital patient had about 2 or 3 seizures. She was subsequently intubated in the emergency room. Her work-up indicates that she has an underlying UTI and placed on empiric IV antibiotics Subjective Date of service: 04/01/19 Principal diagnosis: Ac. Hypoxemic Resp. Failure; Status epilepticus; UTI; Multiple sclerosis Interval history: Patient seen and examined on N/C, NG tube on place Family at bedside- updated transfer to tele today Objective - Exam Narrative Exam: General appearance: Present: cachectic, open eyes with verbal commend - EENT Eyes: no scleral icterus, no conjunctival injection ENT: poor dentition, no thrush, no ulcerations Ears: bilateral: normal - Neck Neck: supple, normal ROM - Respiratory Respiratory effort: normal Respiratory: bilateral: CTA - Cardiovascular Rhythm: other (tachycardic) Heart Sounds: Present: S1 & S2. Absent: gallop, rub Extremities: pulses intact, No edema, normal color, abnormal (contracted extremities) - Gastrointestinal General gastrointestinal: Present: soft, non-tender, non-distended, normal bowel sounds - Integumentary Integumentary: clear, warm, dry - Musculoskeletal Musculoskeletal: 1, generalized weakness - Neurologic Neurologic: no gait normal, bedbound with contracted extremities - Psychiatric Psychiatric: other (unable to assess) - Constitutional Vitals: Vital Signs - 12hr 04/01/19 04/01/19 04/01/19 04:00 05:00 06:00 Temperature 98.8 F Pulse Rate 106 H 111 H 109 H Pulse Rate [ 113 H From Monitor] Respiratory 21 22 19 Rate Blood Pressure 127/75 122/80 130/80 O2 Sat by Pulse 100 100 100 Oximetry 04/01/19 04/01/19 04/01/19 07:00 08:00 09:00 Temperature 98.4 F Pulse Rate 110 H 116 H 113 H Pulse Rate [ 109 H From Monitor] Respiratory 18 20 14 Rate Blood Pressure 115/69 127/77 136/82 O2 Sat by Pulse 100 100 100 Oximetry 04/01/19 04/01/19 10:00 11:00 Temperature Pulse Rate 116 H 120 H Pulse Rate [ From Monitor] Respiratory 12 22 Rate Blood Pressure 126/87 132/88 O2 Sat by Pulse 100 Oximetry - Labs CBC & Chem 7: 04/01/19 05:22 04/01/19 14:44 Labs: Abnormal lab results 03/31/19 04/01/19 04/01/19 Range/Units 21:55 05:22 05:22 MCH 27 L (28-32) pg RDW 15.4 H (13.2-15.2) % [place] % (Auto) 10.5 H (0.0-7.3) % Potassium 2.2 L* D (3.6-5.0) mmol/L Chloride 93.2 L (98-107) mmol/L BUN 4 L (7-17) mg/dL Creatinine 0.3 L (0.7-1.2) mg/dL Glucose 145 H (65-100) mg/dL POC Glucose 120 H (70-105)
[2019-04-01] MEDS: LATANOPROST 0.005% OPHTH SOLN 2.5 ML OU SCH (17:52)
[2019-04-01] MEDS: SODIUM CHLORIDE 0.9% 500 ML 500 ML IV SCH (22:05)
[2019-04-02] MEDS: POTASSIUM CHLORIDE 10 MEQ 10 MEQ/100 ML BAG IV SCH ×5 (00:47→16:14)
[2019-04-02] MEDS: cefTRIAXone/NS 1 GM/50 ML 1 GM/50 ML BAG IV SCH (05:28)
[2019-04-02] MEDS: HEPARIN 5,000 UNIT/1 ML VIAL SUB-Q SCH ×3 (05:28→22:25)
[2019-04-02 07:53] LABS: BUN/Creatinine Ratio 23; Blood Urea Nitrogen 7 mg/dL (7-17); Calcium 8.8 mg/dL (8.4-10.2); Hemolysis Index 1
[2019-04-02] MEDS ORDERED: levETIRAcetam 500 MG/5 ML ORAL LIQD PO SCH (10:00)
[2019-04-02] MEDS: levETIRAcetam 500 MG/5 ML ORAL LIQD PO SCH ×2 (10:01→22:25)
[2019-04-02] MEDS: VENLAFAXINE XR 75 MG CAP PO SCH (10:01)
[2019-04-02] MEDS: POTASSIUM CHLORIDE 20 MEQ PACKET PO SCH (10:02)
[2019-04-02] MEDS: ASPIRIN EC 81 MG TAB PO SCH (10:02)
--- NOTE | 2019-04-02 10:22 | Progress Note ---
Assessment and Plan Acute hypoxemic respiratory failure s/p MVS( extubated) Status epilepticus UTI h/o Multiple sclerosis Acute toxic-metabolic encephalopathy-improving Severe protein calorie malnutrition Oropharyngeal dysphagia Hypokalemia Mild hyponatremia PLAN -Modified diet with aspiration precautions HOB > 40 degrees - continue Keppra as AED - fall precautions -PT/OT as tolerated -antibiotics for UTI to complete course - continue accuchecks with glycemic control per SSI for target BG < 180 mg/dl - mobility protocol for pressure ulcer prevention - continue to monitor electrolyte profile closely and replete as indicated( replacing potassium) - continue VTE prophylaxis -Discharge planning per primary. Updated the son at the bedside Discussed with RN re care plan at the bedside Subjective Date of service: 04/02/19 Principal diagnosis: Ac. Hypoxemic Resp. Failure; Status epilepticus; UTI; Multiple sclerosis Interval history: Patient is seen today for: Acute Hypoxemic Respiratory Failure s/p MVS; Status epilepticus; UTI; Multiple sclerosis; Hyperkalemia Seen and examined at bedside; 24hour events reviewed; nursing and respiratory care staff consulted; no adverse overnight events reported to me; No cough, no fevers, no chills. Denies any chest pain, no shortness of breath; Was started on mechanical soft diet by SENSITIZED PAPER TESTER today. No seizures No nausea or vomiting, no diarrhea Objective Vital Signs - 12hr 04/01/19 04/01/19 04/02/19 23:04 23:05 04:33 Temperature 98.6 F Pulse Rate 120 H 121 H Respiratory 18 20 Rate Blood Pressure 135/80 114/69 O2 Sat by Pulse 100 100 Oximetry 04/02/19 04/02/19 04/02/19 04:34 07:54 09:02 Temperature 98.4 F 98.4 F Pulse Rate 119 H Respiratory 18 Rate Blood Pressure 110/64 O2 Sat by Pulse 100 94 Oximetry Constitutional: no acute distress, alert Eyes: non-icteric ENT: oropharynx dry Neck: supple, no lymphadenopathy Effort: normal Ascultation: Bilateral: diminished breath sounds, rhonchi Cardiovascular: regular rate and rhythm, other (S1,S2, no murmurs, gallops, rubs) Gastrointestinal: normoactive bowel sounds, soft, non-tender Integumentary: normal Extremities: no cyanosis, no edema, pink and warm, pulses normal, no ischemia or petechiae Neurologic: normal mental status (slow to respond, but appropriate in her responses), pupils equal and round Psychiatric: mood appropriate, affect normal CBC and BMP: 04/01/19 05:22 04/02/19 06:33 ABG, PT/INR, D-dimer: ABG POC ABG pH 7.503 (7.35-7.45) H 03/31/19 11:10 ABG pH 7.406 pH Units (7.350-7.450) 03/30/19 04:14 POC ABG pCO2 38.8 (35-45) 03/31/19 11:10 ABG pCO2 37.0 mm Hg 03/30/19 04:14 POC ABG pO2 121 (80-105) H 03/31/19 11:10 ABG pO2 154.0 mm Hg (80.0-90.0) H 03/30/19 04:14 POC ABG HCO3 30.5 (22-26 mml/L) 03/31/19 11:10 POC ABG Total CO2 32 (23-27mmol/L) 03/31/19 11:10 POC ABG O2 Sat 99 03/31/19 11:10 ABG O2 Saturation 98.9 % (95.0-99.0) 03/30/19 04:14 PT/INR, D-dimer PT 14.2 Sec. (12.2-14.9) 03/29/19 20:42 INR 1.11 (0.87-1.13) 03/29/19 20:42 Abnormal lab findings: Abnormal Labs 03/29/19 03/29/19 03/29/19 19:56 20:42 20:42 MCH 27 L RDW 15.7 H [place] % (Auto) 8.5 H Seg Neutrophils % 74.2 H APTT 22.3 L POC ABG pH POC ABG pCO2 POC ABG pO2 ABG pO2 ABG Hemoglobin Sodium 135 L Potassium 5.4 H Chloride 94.4 L Carbon Dioxide BUN Creatinine Glucose POC Glucose Lactic Acid Phosphorus Alkaline Phosphatase 154 H Total Protein 5.9 L Albumin 3.4 L Urine WBC (Auto) 03/29/19 03/29/19 03/29/19 20:42 21:10 21:29 MCH RDW [place] % (Auto) Seg Neutrophils % APTT POC ABG pH POC ABG pCO2 POC ABG pO2 285 H ABG pO2 ABG Hemoglobin Sodium Potassium Chloride Carbon Dioxide BUN Creatinine Glucose POC Glucose Lactic Acid 2.60 H* Phosphorus Alkaline Phosphatase Total Protein Albumin Urine WBC (Auto) > 182.0 H 03/30/19 03/30/19 03/31/19 04:14 07:41 05:48 MCH RDW [place] % (Auto) Seg Neutrophils % APTT POC ABG pH 7.557 H POC ABG pCO2 32.9 L POC ABG pO2 157 H ABG pO2 154.0 H ABG Hemoglobin 11.3 L Sodium Potassium Chloride Carbon Dioxide 16 L D BUN Creatinine 0.5 L Glucose POC Glucose Lactic Acid Phosphorus Alkaline Phosphatase Total Protein Albumin Urine WBC (Auto) 03/31/19 03/31/19 04/01/19 11:10 21:55 05:22 MCH 27 L RDW 15.4 H [place] % (Auto) 10.5 H Seg Neutrophils % APTT POC ABG pH 7.503 H POC ABG pCO2 POC ABG pO2 121 H ABG pO2 ABG Hemoglobin Sodium Potassium Chloride Carbon Dioxide BUN Creatinine Glucose POC Glucose 120 H Lactic Acid Phosphorus Alkaline Phosphatase Total Protein Albumin Urine WBC (Auto) 04/01/19 04/01/19 04/01/19 05:22 14:44 16:37 MCH RDW [place] % (Auto) Seg Neutrophils % APTT POC ABG pH POC ABG pCO2 POC ABG pO2 ABG pO2 ABG Hemoglobin Sodium Potassium 2.2 L* D 2.9 L* D Chloride 93.2 L Carbon Dioxide BUN 4 L Creatinine 0.3 L Glucose 145 H POC Glucose 116 H Lactic Acid Phosphorus Alkaline Phosphatase Total Protein Albumin Urine WBC (Auto) 04/01/19 04/02/19 04/02/19 21:50 06:33 06:33 MCH RDW [place] % (Auto) Seg Neutrophils % APTT POC ABG pH POC ABG pCO2 POC ABG pO2 ABG pO2 ABG Hemoglobin Sodium 134 L Potassium 3.0 L Chloride 92.1 L Carbon Dioxide BUN Creatinine 0.3 L Glucose 144 H POC Glucose 132 H Lactic Acid Phosphorus 2.00 L Alkaline Phosphatase Total Protein Albumin Urine WBC (Auto) 04/02/19 08:01 MCH RDW [place] % (Auto) Seg Neutrophils % APTT POC ABG pH POC ABG pCO2 POC ABG pO2 ABG pO2 ABG Hemoglobin Sodium Potassium Chloride Carbon Dioxide BUN Creatinine Glucose POC Glucose 120 H Lactic Acid Phosphorus Alkaline Phosphatase Total Protein Albumin Urine WBC (Auto) Allied health notes reviewed: nursing
[2019-04-02] MEDS ORDERED: SODIUM CHLORIDE 0.9% 500 ML 500 ML ONE (12:21)
[2019-04-02] MEDS: SODIUM CHLORIDE 0.9% 500 ML 500 ML IV SCH (12:28)
--- NOTE | 2019-04-02 16:27 | Progress Note ---
Assessment and Plan Assessment and plan: / Status epilepticus, resolved - stable on IV Keppra. - Neurology following /Acute respiratory failure with hypoxia, required intubation - extubated 03/31/19 - cont nebs - pulmonary following / UTI (urinary tract infection) - on IV antibiotic / Multiple sclerosis - Continue supportive care /Severe MIGUELINA - nutrition consulted /Hyperkalemia, resolved /Severe hypokalemia -on repletion, will monitor /DVT prophylaxis -on subcutaneous heparin. / Full code status Disposition: d/c back to SNF when medically stable History Interval history: She has no new complaints today. Hospitalist Physical - Constitutional Vitals: Temp Pulse Resp BP Pulse Ox 97.9 F 120 H 16 114/68 100 04/02/19 11:20 04/02/19 11:20 04/02/19 11:20 04/02/19 11:20 04/02/19 11:20 General appearance: Present: no acute distress, cachectic - EENT Eyes: Present: PERRL, EOM intact ENT: hearing intact, clear oral mucosa - Neck Neck: Present: supple - Respiratory Respiratory effort: normal Respiratory: bilateral: CTA - Cardiovascular Rhythm: regular (with tachycardia) Heart Sounds: Present: S1 & S2 - Extremities Extremities: No edema - Abdominal General gastrointestinal: soft, non-tender, normal bowel sounds - Psychiatric Psychiatric: cooperative - Neurologic Neurologic: other (alert and oriented) Results - Labs CBC & Chem 7: 04/01/19 05:22 04/02/19 06:33 Labs: Laboratory Last Values WBC 7.6 K/mm3 (4.5-11.0) 04/01/19 05:22 RBC 4.29 M/mm3 (3.65-5.03) 04/01/19 05:22 Hgb 11.5 gm/dl (10.1-14.3) 04/01/19 05:22 Hct 34.4 % (30.3-42.9) 04/01/19 05:22 MCV 80 fl (79-97) 04/01/19 05:22 MCH 27 pg (28-32) L 04/01/19 05:22 MCHC 33 % (30-34) 04/01/19 05:22 RDW 15.4 % (13.2-15.2) H 04/01/19 05:22 Plt Count 337 K/mm3 (140-440) 04/01/19 05:22 Lymph % (Auto) 19.0 % (13.4-35.0) 04/01/19 05:22 [place] % (Auto) 10.5 % (0.0-7.3) H 04/01/19 05:22 Eos % (Auto) 0.4 % (0.0-4.3) 04/01/19 05:22 Baso % (Auto) 0.4 % (0.0-1.8) 04/01/19 05:22 Lymph # 1.4 K/mm3 (1.2-5.4) 04/01/19 05:22 [place] # 0.8 K/mm3 (0.0-0.8) 04/01/19 05:22 Eos # 0.0 K/mm3 (0.0-0.4) 04/01/19 05:22 Baso # 0.0 K/mm3 (0.0-0.1) 04/01/19 05:22 Seg Neutrophils % 69.7 % (40.0-70.0) 04/01/19 05:22 Seg Neutrophils # 5.3 K/mm3 (1.8-7.7) 04/01/19 05:22 PT 14.2 Sec. (12.2-14.9) 03/29/19 20:42 INR 1.11 (0.87-1.13) 03/29/19 20:42 APTT 22.3 Sec. (24.2-36.6) L 03/29/19 20:42 POC ABG pH 7.503 (7.35-7.45) H 03/31/19 11:10 ABG pH 7.406 pH Units (7.350-7.450) 03/30/19 04:14 POC ABG pCO2 38.8 (35-45) 03/31/19 11:10 ABG pCO2 37.0 mm Hg 03/30/19 04:14 POC ABG pO2 121 (80-105) H 03/31/19 11:10 ABG pO2 154.0 mm Hg (80.0-90.0) H 03/30/19 04:14 POC ABG HCO3 30.5 (22-26 mml/L) 03/31/19 11:10 ABG HCO3 22.7 mmol/L (20.0-26.0) 03/30/19 04:14 POC ABG Total CO2 32 (23-27mmol/L) 03/31/19 11:10 POC ABG O2 Sat 99 03/31/19 11:10 ABG O2 Saturation 98.9 % (95.0-99.0) 03/30/19 04:14 ABG O2 Content 15.7 (0.0-44) 03/30/19 04:14 POC ABG Base Excess 7 ((-2) - (+3)mmol/L) 03/31/19 11:10 ABG Base Excess -1.6 mmol/L (-2.0-3.0) 03/30/19 04:14 ABG Hemoglobin 11.3 gm/dl (12.0-16.0) L 03/30/19 04:14 ABG Carboxyhemoglobin 1.0 % (0.0-5.0) 03/30/19 04:14 ABG Methemoglobin 0.7 % (0.0-1.5) 03/30/19 04:14 Oxyhemoglobin 97.2 % (95.0-99.0) 03/30/19 04:14 FiO2 25 % 03/31/19 11:10 Sodium 134 mmol/L (137-145) L 04/02/19 06:33 Potassium 3.0 mmol/L (3.6-5.0) L 04/02/19 06:33 Chloride 92.1 mmol/L (98-107) L 04/02/19 06:33 Carbon Dioxide 28 mmol/L (22-30) 04/02/19 06:33 Anion Gap 17 mmol/L 04/02/19 06:33 BUN 7 mg/dL (7-17) 04/02/19 06:33 Creatinine 0.3 mg/dL (0.7-1.2) L 04/02/19 06:33 Estimated GFR > 60 ml/min 04/02/19 06:33 BUN/Creatinine Ratio 23 % 04/02/19 06:33 Glucose 144 mg/dL (65-100) H 04/02/19 06:33 POC Glucose 93 (70-105) 04/02/19 11:27 Lactic Acid 1.80 mmol/L (0.7-2.0) 03/29/19 23:40 Calcium 8.8 mg/dL (8.4-10.2) 04/02/19 06:33 Phosphorus 2.00 mg/dL (2.5-4.5) L 04/02/19 06:33 Magnesium 2.00 mg/dL (1.7-2.3) 04/02/19 06:33 Total Bilirubin 0.40 mg/dL (0.1-1.2) 03/29/19 20:42 AST 22 units/L (5-40) 03/29/19 20:42 ALT 11 units/L (7-56) 03/29/19 20:42 Alkaline Phosphatase 154 units/L (35-129) H 03/29/19 20:42 Total Creatine Kinase 133 units/L (30-135) 03/29/19 19:56 Total Protein 5.9 g/dL (6.3-8.2) L 03/29/19 20:42 Albumin 3.4 g/dL (3.9-5) L 03/29/19 20:42 Albumin/Globulin Ratio 1.4 % 03/29/19 20:42 Urine Color [place] (Yellow) 03/29/19 21:10 Urine Turbidity Cloudy (Clear) 03/29/19 21:10 Urine pH 5.0 (5.0-7.0) 03/29/19 21:10 Ur Specific [place] 1.015 (1.003-1.030) 03/29/19 21:10 Urine Protein 100 mg/dl mg/dL (Negative) 03/29/19 21:10 Urine Glucose (UA) Neg mg/dL (Negative) 03/29/19 21:10 Urine Ketones 20 mg/dL (Negative) 03/29/19 21:10 Urine Blood Sm (Negative) 03/29/19 21:10 Urine Nitrite Pos (Negative) 03/29/19 21:10 Urine Bilirubin Neg (Negative) 03/29/19 21:10 Urine Urobilinogen 2.0 mg/dL (<2.0) 03/29/19 21:10 Ur Leukocyte Esterase Mod (Negative) 03/29/19 21:10 Urine WBC (Auto) > 182.0 /HPF (0.0-6.0) H 03/29/19 21:10 Urine RBC (Auto) 18.0 /HPF (0.0-6.0) 03/29/19 21:10 U Epithel Cells (Auto) 2.0 /HPF (0-13.0) 03/29/19 21:10 Urine Bacteria (Auto) 4+ /HPF (Negative) 03/29/19 21:10 Urine WBC Clumps 3+ /HPF 03/29/19 21:10 Hyaline Casts 15 /LPF 03/29/19 21:10 Urine Mucus 3+ /HPF 03/29/19 21:10 Urine Yeast (Budding) 3+ /HPF 03/29/19 21:10 Urine Opiates Screen Presumptive negative 03/29/19 21:10 Urine Methadone Screen Presumptive negative 03/29/19 21:10 Ur Barbiturates Screen Presumptive negative 03/29/19 21:10 Ur Phencyclidine Scrn Presumptive negative 03/29/19 21:10 Ur Amphetamines Screen Presumptive negative 03/29/19 21:10 U Benzodiazepines Scrn Presumptive positive 03/29/19 21:10 Urine Cocaine Screen Presumptive negative 03/29/19 21:10 U Marijuana (THC) Screen Presumptive negative 03/29/19 21:10 Drugs of Abuse Note Disclamer 03/29/19 21:10 Active Medications - Current Medications Current Medications: Generic Name Dose Route Start Last Admin Trade Name Freq PRN Reason Stop Dose Admin Acetaminophen 650 mg 03/29/19 23:19 Tylenol VT Q6H PRN Pain MILD(1-3)/Fever >100.5/ALEGRIA Acetaminophen 1,000 mg 03/30/19 08:22 04/02/19 10:02 Tylenol PO 1,000 mg Q8HR PRN Administration Pain, Mild (1-3) Lipase/Protease/Amylase 1 each 03/30/19 12:[address] 10,500 Unit FEEDTUBE PRN PRN For Clogged Feeding Tube Aspirin 81 mg 03/30/19 10:00 04/02/19 10:02 Halfprin Ec PO 81 mg QDAY JANES Administration Atorvastatin Calcium 40 mg 03/30/19 22:00 04/01/19 22:16 Lipitor PO 40 mg QHS JANES Administration Heparin Sodium (Porcine) 5,000 unit 03/30/19 06:00 04/02/19 05:28 Heparin SUB-Q 5,000 unit Q8HR JANES Administration Hydrophilic Ointment 1 applic 03/29/19 20:42 Vaseline Lip Therapy TP Q2HR PRN Dry Lips Ceftriaxone Sodium 1 gm in 50 mls @ 100 mls/hr 03/31/19 06:00 04/02/19 05:28 Rocephin/Ns 1 Gm/50 Ml IV 04/04/19 06:29 100 mls/hr Q24H JANES Administration Protocol Latanoprost 1 drops 03/30/19 18:00 04/01/19 17:52 Latanoprost 0.005% OU 1 drops QPM JANES Administration Levetiracetam 500 mg 04/02/19 10:00 04/02/19 10:01 Keppra PO 500 mg BID JANES Administration Miscellaneous Medication 200 mg 03/30/19 08:22 Sulindac [Sulindac] PO BID PRN Migraine Headache Multi-Ingred Cream/Lotion/Oil/Oint 1 applic 03/29/19 20:42 Artificial Tears Ophth Oint OU Q4HR PRN Dry Eye(s) Ondansetron HCl 4 mg 03/29/19 23:19 Zofran IV Q8H PRN Nausea And Vomiting Potassium Chloride 40 meq 04/01/19 10:00 04/02/19 10:02 Potassium Chloride PO 40 meq QDAY JANES Administration Simple Syrup 15 ml 03/30/19 12:57 Simple Syrup FEEDTUBE PRN PRN Hypoglycemia Simple Syrup 30 ml 03/30/19 12:57 Simple Syrup FEEDTUBE PRN PRN Hypoglycemia Sodium Bicarbonate 325 mg 03/30/19 12:27 Sodium Bicarbonate FEEDTUBE PRN PRN For Clogged Feeding Tube Sodium Chloride 10 ml 03/30/19 10:00 04/02/19 10:10 Sodium Chloride Flush Syringe 10 Ml IV 10 ml BID JANES Administration Sodium Chloride 10 ml 03/29/19 23:19 Sodium Chloride Flush Syringe 10 Ml IV PRN PRN LINE FLUSH Tramadol HCl 50 mg 03/30/19 08:22 Ultram PO Q8HR PRN Pain , Severe (7-10) Venlafaxine HCl 150 mg 03/30/19 10:00 04/02/19 10:01 Effexor Xr PO 150 mg QDAY JANES Administration Nutrition/Malnutrition Assess - Dietary Evaluation Nutrition/Malnutrition Findings: Nutrition Notes Start: 03/30/19 11:36 Freq: Status: Active Protocol: Document 04/01/19 10:30 LP (Rec: 11/18/19 10:36 LP [id number]) Nutrition Notes Initial or Follow up Reassessment Current Diagnosis Hypertension Other Pertinent Diagnosis Seizure, MS, UTI Current Diet Osmolite 1.5 at 45ml/hr Labs/Tests K 2.2 BG 145 Pertinent Medications Reviewed Height 5 ft 7 in Weight 41.8 kg [place] Body Weight (kg) 61.36 BMI 14.4 Subjective/Other Information Pt extubated yesterday. Pt tolerating TF at goal rate. Percent of energy/protein needs met: 96% of kcal and 100% of protein needs Minimum of two criteria Yes Body Fat Depletion Mild depletion (non-severe) Muscle Mass Mild Depletion (non-severe) Reduced Grounds Keeper Strength Measurably Reduced (severe) #1 Nutrition Diagnosis Malnutrition Diagnosis Progress(for reassessment Continues documentation) Is patient on ventilator? No Is Patient Ambulatory and/or Out of Bed No REE-([place]-St[place] Jeor-confined to bed) 1218.204 Kcal/Kg value to use for calculation 40 Approximate Energy Requirements Using 1672 kcal/Kg Calculation Used for Recommendations Kcal/kg Additional Notes Protein needs are 51-63g (1.2- 1.5g/kg) Fluid needs are 1ml/kcal Nutrition Intervention Change Diet Order: TF Nutrition Support: Osmolite 1.5 at 45ml/hr Flush 130ml q4h Kcal 1,620 Protein (gm) 68 Fluid (mL) 823 Goal #1 Meet at least 80% of kcal and protein needs Goal #2 Wt maintenance/gain Anticipated Discharge Needs: Unable to determine at this time Follow-Up By: 04/04/19 Additional Comments Follow for stable TF, Wt, K levels
[2019-04-02] MEDS: LATANOPROST 0.005% OPHTH SOLN 2.5 ML OU SCH (22:26)
[2019-04-03] MEDS: cefTRIAXone/NS 1 GM/50 ML 1 GM/50 ML BAG IV SCH (05:23)
[2019-04-03] MEDS: HEPARIN 5,000 UNIT/1 ML VIAL SUB-Q SCH (05:36)
[2019-04-03 06:59] LABS: BUN/Creatinine Ratio 35; Blood Urea Nitrogen 7 mg/dL (7-17); Calcium 9.2 mg/dL (8.4-10.2); Hemolysis Index 14
[2019-04-03 08:20] VITALS: BP 116/71
[2019-04-03] MEDS: POTASSIUM CHLORIDE 20 MEQ PACKET PO SCH (09:57)
[2019-04-03] MEDS: VENLAFAXINE XR 75 MG CAP PO SCH (09:57)
[2019-04-03] MEDS: ASPIRIN EC 81 MG TAB PO SCH (09:57)
[2019-04-03] MEDS: levETIRAcetam 500 MG/5 ML ORAL LIQD PO SCH (10:06)
--- NOTE | 2019-04-03 12:28 | Discharge Summary ---
Providers - Providers Date of Admission: 03/29/19 21:40 Date of discharge: 04/03/19 Attending physician: SHA THOMPSON 03/29/19 20:43 Consult to Dietitian/Nutrition [CONS] Routine Physician Instructions: Reason For Exam: Reason for Consult: Evaluate nutritional intake 03/29/19 21:50 Consult to Physician [CONS] Urgent Comment: Consulting Provider: JOLANTA ECHAVARRIA Physician Instructions: Reason For Exam: status epilepticus, intubated, multiple sclerosis 03/29/19 23:24 Consult to Case Management [CONS] Routine Services Needed at Discharge: Home Health Services Notified:: manager case management 03/29/19 23:25 Consult to Physician [CONS] Routine Comment: Consulting Provider: NORMA YUEN Physician Instructions: Reason For Exam: Status epilepticus 03/30/19 12:27 Consult to Dietitian/Nutrition [CONS] Routine Physician Instructions: Assess nutrtn needs, initiate, modify, manage TF Reason For Exam: Reason for Consult: Write/Manage Tube Feeding Reason for Consult: Write/Manage Tube Feeding 04/01/19 09:22 Speech Therapy Evaluation and Treat [CONS] Routine Reason For Exam: aspiration Primary care physician: [facility] Hospitalization Reason for admission: Status epilepticus Condition: Stable Hospital course: Final discharge diagnosis: Status epilepticus, resolved - cont oral Keppra. Acute respiratory failure with hypoxia, required intubation - extubated on 03/31/19 - pt saturating well on room air UTI (urinary tract infection) - completed IV antibiotic - Urine culture was negative Multiple sclerosis - Continue supportive care Severe protein calorie malnutrition - cont oral supplements Hyperkalemia -treated and resolved Severe hypokalemia -repleted and resolved HTN with sinus tachycardia -Patient started on low-dose metoprolol -Her home HCTZ discontinued Positive Haemophilus parainfluenzae Hospital course: In the ED, patient was intubated and placed on mechanical ventilator, then admitted to the ICU for continued management. In the ICU, she was placed on sedative agents including antiseizure agents. She also received IV antibiotic for UTI. Subsequently, she was extubated successfully and later transferred to the acute medicine floor for continued management. At some point, she received potassium supplements for hypokalemia. She was monitored without any adverse events and was then deemed stable for discharge back to the facility. Of note, due to predisposition to hypokalemia with HCTZ use, her antihypertensive was changed to low-dose metoprolol which will help her tachycardia. Disposition: DC/[place]-03 [facility] Time spent for discharge: 38 minutes Core Measure Documentation - Palliative Care Palliative Care/ Comfort Measures: Not Applicable - Core Measures Any of the following diagnoses?: none Exam - Constitutional Vitals: Temp Pulse Resp BP Pulse Ox 98.4 F 114 H 16 116/71 96 04/03/19 08:19 04/03/19 08:19 04/03/19 08:19 04/03/19 08:19 04/03/19 09:01 General appearance: Present: no acute distress - EENT Eyes: Present: PERRL, EOM intact ENT: hearing intact, clear oral mucosa - Neck Neck: Present: supple, normal ROM - Respiratory Respiratory effort: normal Respiratory: bilateral: CTA - Cardiovascular Rhythm: regular Heart Sounds: Present: S1 & S2. Absent: rub, click - Extremities Extremities: pulses symmetrical, No edema - Abdominal General gastrointestinal: Present: soft, non-tender, non-distended, normal bowel sounds - Integumentary Integumentary: Present: clear, warm, dry - Musculoskeletal Musculoskeletal: gait normal, strength equal bilaterally - Psychiatric Psychiatric: appropriate mood/affect, intact judgment & insight - Neurologic Neurologic: moves all extremities Plan Follow up with: PRIMARY CARE, [Primary Care Provider] - 3-5 Days Prescriptions: levETIRAcetam [Keppra TAB] 500 mg PO BID #60 tablet Metoprolol [Lopressor TAB] 12.5 mg PO BID #30 tablet
--- NOTE | 2019-04-03 12:51 | Progress Note ---
Assessment and Plan Acute Hypoxemic Respiratory Failure s/p MVS Status epilepticus UTI (urinary tract infection) Multiple sclerosis Severe MIGUELINA Hyperkalemia - continue Keppra as AED - continue fall precautions - complete empiric antibiotics for aspiration PNA, antibiotics for VRE, de- escalate based on cultures and clinical status - continue aspiration precautions; HOB > 40 degrees - continue accuchecks with glycemic control per SSI for target BG < 180 mg/dl - mobility protocol for pressure ulcer prevention - Monitor hemodynamics closely - Monitor electrolyte profile closely and replete as indicated - continue GI & VTE prophylaxis - continue other care per attending / other consultants .... re-evaluate in am & prn Subjective Date of service: 04/03/19 Principal diagnosis: Ac. Hypoxemic Resp. Failure; Status epilepticus; UTI; Multiple sclerosis Interval history: Patient is seen today for: Acute Hypoxemic Respiratory Failure s/p MVS; Status epilepticus; UTI; Multiple sclerosis; Hyperkalemia Seen and examined at bedside; 24hour events reviewed; nursing and respiratory care staff consulted; no adverse overnight events reported to me; resting peacefully in bed; no recurrent seizures; no emesis or overt aspiration Objective Vital Signs - 12hr 04/03/19 04/03/19 04/03/19 03:00 08:19 09:01 Temperature 98.5 F 98.4 F Pulse Rate 117 H 114 H Respiratory 18 16 Rate Blood Pressure 108/67 116/71 O2 Sat by Pulse 100 98 96 Oximetry 04/03/19 10:00 Temperature Pulse Rate 115 H Respiratory Rate Blood Pressure O2 Sat by Pulse Oximetry Constitutional: no acute distress, alert Eyes: non-icteric ENT: oropharynx moist Neck: supple, no lymphadenopathy, no JVD Effort: normal Ascultation: Bilateral: diminished breath sounds, rhonchi Percussion: Bilateral: not dull Cardiovascular: regular rate and rhythm, other (S1,S2, no murmurs, gallops, rubs) Gastrointestinal: normoactive bowel sounds, soft, non-tender, non-distended Integumentary: normal Extremities: no cyanosis, no edema, pink and warm, pulses normal, no ischemia or petechiae Neurologic: normal mental status (slow to respond, but appropriate in her responses), pupils equal and round, CN II-XII normal Psychiatric: mood appropriate, affect normal CBC and BMP: 04/01/19 05:22 04/03/19 06:09 ABG, PT/INR, D-dimer: ABG POC ABG pH 7.503 (7.35-7.45) H 03/31/19 11:10 ABG pH 7.406 pH Units (7.350-7.450) 03/30/19 04:14 POC ABG pCO2 38.8 (35-45) 03/31/19 11:10 ABG pCO2 37.0 mm Hg 03/30/19 04:14 POC ABG pO2 121 (80-105) H 03/31/19 11:10 ABG pO2 154.0 mm Hg (80.0-90.0) H 03/30/19 04:14 POC ABG HCO3 30.5 (22-26 mml/L) 03/31/19 11:10 POC ABG Total CO2 32 (23-27mmol/L) 03/31/19 11:10 POC ABG O2 Sat 99 03/31/19 11:10 ABG O2 Saturation 98.9 % (95.0-99.0) 03/30/19 04:14 PT/INR, D-dimer PT 14.2 Sec. (12.2-14.9) 03/29/19 20:42 INR 1.11 (0.87-1.13) 03/29/19 20:42 Abnormal lab findings: Abnormal Labs 03/29/19 03/29/19 03/29/19 19:56 20:42 20:42 MCH 27 L RDW 15.7 H [place] % (Auto) 8.5 H Seg Neutrophils % 74.2 H APTT 22.3 L POC ABG pH POC ABG pCO2 POC ABG pO2 ABG pO2 ABG Hemoglobin Sodium 135 L Potassium 5.4 H Chloride 94.4 L Carbon Dioxide BUN Creatinine Glucose POC Glucose Lactic Acid Phosphorus Alkaline Phosphatase 154 H Total Protein 5.9 L Albumin 3.4 L Urine WBC (Auto) 03/29/19 03/29/19 03/29/19 20:42 21:10 21:29 MCH RDW [place] % (Auto) Seg Neutrophils % APTT POC ABG pH POC ABG pCO2 POC ABG pO2 285 H ABG pO2 ABG Hemoglobin Sodium Potassium Chloride Carbon Dioxide BUN Creatinine Glucose POC Glucose Lactic Acid 2.60 H* Phosphorus Alkaline Phosphatase Total Protein Albumin Urine WBC (Auto) > 182.0 H 03/30/19 03/30/19 03/31/19 04:14 07:41 05:48 MCH RDW [place] % (Auto) Seg Neutrophils % APTT POC ABG pH 7.557 H POC ABG pCO2 32.9 L POC ABG pO2 157 H ABG pO2 154.0 H ABG Hemoglobin 11.3 L Sodium Potassium Chloride Carbon Dioxide 16 L D BUN Creatinine 0.5 L Glucose POC Glucose Lactic Acid Phosphorus Alkaline Phosphatase Total Protein Albumin Urine WBC (Auto) 03/31/19 03/31/19 04/01/19 11:10 21:55 05:22 MCH 27 L RDW 15.4 H [place] % (Auto) 10.5 H Seg Neutrophils % APTT POC ABG pH 7.503 H POC ABG pCO2 POC ABG pO2 121 H ABG pO2 ABG Hemoglobin Sodium Potassium Chloride Carbon Dioxide BUN Creatinine Glucose POC Glucose 120 H Lactic Acid Phosphorus Alkaline Phosphatase Total Protein Albumin Urine WBC (Auto) 04/01/19 04/01/19 04/01/19 05:22 14:44 16:37 MCH RDW [place] % (Auto) Seg Neutrophils % APTT POC ABG pH POC ABG pCO2 POC ABG pO2 ABG pO2 ABG Hemoglobin Sodium Potassium 2.2 L* D 2.9 L* D Chloride 93.2 L Carbon Dioxide BUN 4 L Creatinine 0.3 L Glucose 145 H POC Glucose 116 H Lactic Acid Phosphorus Alkaline Phosphatase Total Protein Albumin Urine WBC (Auto) 04/01/19 04/02/19 04/02/19 21:50 06:33 06:33 MCH RDW [place] % (Auto) Seg Neutrophils % APTT POC ABG pH POC ABG pCO2 POC ABG pO2 ABG pO2 ABG Hemoglobin Sodium 134 L Potassium 3.0 L Chloride 92.1 L Carbon Dioxide BUN Creatinine 0.3 L Glucose 144 H POC Glucose 132 H Lactic Acid Phosphorus 2.00 L Alkaline Phosphatase Total Protein Albumin Urine WBC (Auto) 04/02/19 04/03/19 08:01 06:09 MCH RDW [place] % (Auto) Seg Neutrophils % APTT POC ABG pH POC ABG pCO2 POC ABG pO2 ABG pO2 ABG Hemoglobin Sodium Potassium Chloride Carbon Dioxide BUN Creatinine 0.2 L Glucose POC Glucose 120 H Lactic Acid Phosphorus Alkaline Phosphatase Total Protein Albumin Urine WBC (Auto) Chest x-ray: image reviewed Allied health notes reviewed: nursing
== END 2019-04-03 20:00 | DRG 100 ==
LOC: ED 19:26 → CC1 21:40 → 4A 04-01 10:39
PROVIDERS: ADMIT Internal Medicine Geriatric Medicine; ATTEND Internal Medicine
PROC: 5A1945Z Respiratory Ventilation, 24-96 Consecutive Hours (ICD-10-PCS; principal; 2019-03-29)
PROC: 0BH17EZ Insertion of Endotracheal Airway into Trachea, Via Natural or Artificial Opening (ICD-10-PCS; 2019-03-29)
PROC: 4A033R1 Measurement of Arterial Saturation, Peripheral, Percutaneous Approach (ICD-10-PCS; 2019-03-29)
DX: G40.901 Epilepsy, unspecified, not intractable, with status epilepticus (principal); J96.01 Acute respiratory failure with hypoxia; E43 Unspecified severe protein-calorie malnutrition; G92 Toxic encephalopathy; N39.0 Urinary tract infection, site not specified; E87.1 Hypo-osmolality and hyponatremia; G43.909 Migraine, unspecified, not intractable, without status migrainosus; E78.00 Pure hypercholesterolemia, unspecified; E87.5 Hyperkalemia; G35 Multiple sclerosis; Z79.82 Long term (current) use of aspirin; Z79.899 Other long term (current) drug therapy; Z68.20 Body mass index [BMI] 20.0-20.9, adult; Z99.3 Dependence on wheelchair
CPT/HCPCS: 31500; 36415; 36600; 70450; 71045; 74018; 80048; 80053; 80307; 81001; 82140; 82550; 82803; 82962; 83735; 84100; 84132; 85025; 85610; 85730; 87070; 87086; 87116; 87205; 93005; 93010; 94002; 94003; 94760; G0378; A9270-GY; J0330; J0696; J1644; J1953; J2060; J2250; J3475; J3480; J7030; J7040

== ENCOUNTER 2019-06-29 08:20 | Inpatient (IN) | payer OTHER ==
[2019-06-29] MEDS ORDERED: levETIRAcetam 1000 MG/NS 0.75% 1,000 MG/100 ML BAG IV ONE ×3 (08:27→09:21)
[2019-06-29] MEDS ORDERED: LORazepam 2 MG/ML VIAL IV ONE (08:30)
[2019-06-29] MEDS ORDERED: LORazepam 2 MG/ML VIAL ONE (08:31)
--- NOTE | 2019-06-29 09:17 | XRay Report ---
CHEST 1 VIEW INDICATION / CLINICAL INFORMATION: hypertension. COMPARISON: 11/28/2018 FINDINGS: SUPPORT DEVICES: None. HEART / MEDIASTINUM: No significant abnormality. LUNGS / PLEURA: No significant pulmonary or pleural abnormality. No pneumothorax. ADDITIONAL FINDINGS: No significant additional findings. IMPRESSION: 1. No acute findings. Signer Name: Ida Fiore MD Signed: 06/29/2019 9:12 AM Workstation Name: [id number]
--- NOTE | 2019-06-29 09:24 | Emergency Department Report ---
ED General Adult HPI - General Chief complaint: Seizure Stated complaint: SEIZURE Time Seen by Provider: 06/29/19 08:27 Source: EMS Mode of arrival: Stretcher Limitations: Other - History of Present Illness Initial comments: This is a 63-year-old female with a history of status epilepticus treated here in March requiring endotracheal intubation. At the time of this dictation she is now intubated. She was given Ativan and 2 g of Keppra. This was intermittently successful in stopping her seizures. Therefore we proceeded to RSI at elective intubation. The son was informed of the indications and risks of the procedure. He was in agreement. The patient is able to recognize family members at her baseline. She is contracted. She lives in an assisted living. However she is able to assist with her ADLs. 2019 hospitalization: Hospitalization Reason for admission: Status epilepticus Condition: Stable Hospital course: Final discharge diagnosis: Status epilepticus, resolved - cont oral Keppra. Acute respiratory failure with hypoxia, required intubation - extubated on 03/31/19 - pt saturating well on room air UTI (urinary tract infection) - completed IV antibiotic - Urine culture was negative Multiple sclerosis - Continue supportive care Severe protein calorie malnutrition - cont oral supplements Hyperkalemia -treated and resolved Severe hypokalemia -repleted and resolved HTN with sinus tachycardia -Patient started on low-dose metoprolol -Her home HCTZ discontinued Positive Haemophilus parainfluenzae Hospital course: In the ED, patient was intubated and placed on mechanical ventilator, then admitted to the ICU for continued management. In the ICU, she was placed on sedative agents including antiseizure agents. She also received IV antibiotic for UTI. Subsequently, she was extubated successfully and later transferred to the acute medicine floor for continued management. At some point, she received potassium supplements for hypokalemia. She was monitored without any adverse events and was then deemed stable for discharge back to the facility. Of note, due to predisposition to hypokalemia with HCTZ use, her antihypertensive was changed to low-dose metoprolol which will help her tachycardia. Disposition: DC/[place]-03 [facility] Time spent for discharge: 38 minutes - Related Data Home Medications Medication Instructions Recorded Confirmed Last Taken Acetaminophen [Acetaminophen TAB] 1,000 mg PO Q8HR PRN 03/30/19 06/29/19 Unknown Aspirin EC [Halfprin EC] 81 mg PO QDAY 03/30/19 06/29/19 Unknown Atorvastatin [Lipitor] 40 mg PO QHS 03/30/19 06/29/19 Unknown Latanoprost 0.005% 1 drop OP QPM 03/30/19 06/29/19 Unknown Menthol/Camphor [Dermasarra 222 ml TP PRN PRN 03/30/19 06/29/19 Unknown Anti-Itch Lotion] Sulindac 200 mg PO BID PRN 03/30/19 06/29/19 Unknown Venlafaxine ER 150 mg PO DAILY 03/30/19 06/29/19 Unknown Potassium Chloride [K-Dur] 40 meq PO QDAY 06/29/19 06/29/19 Unknown Tizanidine HCl [Tizanidine 2mg tab] 4 mg PO BID PRN 06/29/19 06/29/19 Unknown hydroCHLOROthiazide [HCTZ] 25 mg PO QDAY 06/29/19 06/29/19 Unknown traMADoL [Ultram] 50 mg PO Q8H PRN 06/29/19 06/29/19 Unknown Previous Rx's Medication Instructions Recorded Last Taken Type Metoprolol [Lopressor TAB] 12.5 mg PO BID #30 tablet 04/03/19 Unknown Rx levETIRAcetam [Keppra TAB] 500 mg PO BID #60 tablet 04/03/19 Unknown Rx Allergies Allergy/AdvReac Type Severity Reaction Status Date / Time No Known Allergies Allergy Unverified 03/29/19 20:00 ED Review of Systems ROS: Stated complaint: SEIZURE Other details as noted in HPI Comment: Unobtainable due to pts medical conditions ED Past Medical Hx - Past Medical History Previous Medical History?: Yes Hx Hypertension: Yes Hx Congestive Heart Failure: No Hx Diabetes: No Hx Headaches / Migraines: Yes Hx Seizures: Yes Hx Asthma: No Hx COPD: No Additional medical history: elevated cholesterol. multiple sclerosis - Surgical History Additional Surgical History: DINORA - Social History Smoking Status: Unknown if ever smoked - Medications Home Medications: Home Medications Medication Instructions Recorded Confirmed Last Taken Type Acetaminophen [Acetaminophen TAB] 1,000 mg PO Q8HR PRN 03/30/19 06/29/19 Unknown History Aspirin EC [Halfprin EC] 81 mg PO QDAY 03/30/19 06/29/19 Unknown History Atorvastatin [Lipitor] 40 mg PO QHS 03/30/19 06/29/19 Unknown History Latanoprost 0.005% 1 drop OP QPM 03/30/19 06/29/19 Unknown History Menthol/Camphor [Dermasarra 222 ml TP PRN PRN 03/30/19 06/29/19 Unknown History Anti-Itch Lotion] Sulindac 200 mg PO BID PRN 03/30/19 06/29/19 Unknown History Venlafaxine ER 150 mg PO DAILY 03/30/19 06/29/19 Unknown History Metoprolol [Lopressor TAB] 12.5 mg PO BID #30 tablet 04/03/19 06/29/19 Unknown Rx levETIRAcetam [Keppra TAB] 500 mg PO BID #60 tablet 04/03/19 06/29/19 Unknown Rx Potassium Chloride [K-Dur] 40 meq PO QDAY 06/29/19 06/29/19 Unknown History Tizanidine HCl [Tizanidine 2mg tab] 4 mg PO BID PRN 06/29/19 06/29/19 Unknown History hydroCHLOROthiazide [HCTZ] 25 mg PO QDAY 06/29/19 06/29/19 Unknown History traMADoL [Ultram] 50 mg PO Q8H PRN 06/29/19 06/29/19 Unknown History ED Physical Exam - General Limitations: Other (Active thickness) General appearance: obtunded - Head Head exam: Present: atraumatic, normocephalic - Eye Eye exam: Present: PERRL (Reactive to light. Small to mid position). Absent: scleral icterus - ENT ENT exam: Present: mucous membranes moist, other (Largely edentulous with dentures in place) - Neck Neck exam: Present: normal inspection - Respiratory Respiratory exam: Present: normal lung sounds bilaterally. Absent: respiratory distress - Cardiovascular Cardiovascular Exam: Present: regular rate, normal rhythm. Absent: systolic murmur, diastolic murmur, rubs, gallop - GI/Abdominal GI/Abdominal exam: Present: soft, normal bowel sounds. Absent: distended, tenderness, guarding - Extremities Exam Extremities exam: Present: other - Neurological Exam Neurological exam: Present: other - Psychiatric Psychiatric exam: Present: other (Not applicable) - Skin Skin exam: Present: warm, dry, intact, normal color. Absent: rash ED Course Vital Signs 06/29/19 06/29/19 08:35 10:29 Temperature 97.9 F Pulse Rate 111 H 108 H Respiratory 14 Rate Blood Pressure 110/70 120/85 O2 Sat by Pulse 100 100 Oximetry - Reevaluation(s) Reevaluation #1: We attempted to obtain adequate seizure control. However, we made progress but were ultimately unsuccessful and endotracheal intubation was necessitated. This was done without difficulty. The patient was placed on an Ativan drip. We will monitor her progress. She will be admitted to the intensive care unit. There was no aspiration in the emergency department. Chest x-ray shows good endotracheal and NG tube position. Looks to be a slight infiltrate in the right middle lobe. The patient will be given ceftriaxone. 06/29/19 10:49 - Intubation Time Out Performed: No Sedative: Versed Paralytic: Succinylcholine Laryngoscope: Andre Size: 4 ET Tube Size: 7.5 Tube Secured Depth (cm): 22 Tube Secured Location: lips Tube Placement Confirmation: visualized tube passing t Patient Tolerated Procedure: well Intubation Complications: none Additional Comments: Good position on chest x-ray at 22. ED Medical Decision Making - Lab Data Result diagrams: 06/29/19 08:39 06/29/19 08:39 Laboratory Results - last 24 hr 06/29/19 08:48 POC Glucose 80 - EKG Data -: EKG Interpreted by Me EKG shows normal: sinus rhythm Rate: tachycardia - EKG Data Interpretation: no acute changes - Radiology Data Radiology results: report reviewed, image reviewed - Differential Diagnosis Mild right middle lobe infiltrate Critical Care Time: Yes Critical care time in (mins) excluding proc time.: 90 Critical care attestation.: If time is entered above; I have spent that time in minutes in the direct care of this critically ill patient, excluding procedure time. ED Disposition Clinical Impression: Status epilepticus, Required emergency intubation, Multiple sclerosis, Right middle lobe pulmonary infiltrate Disposition: DC-09 OP ADMIT IP TO THIS HOSP Is pt being admited?: Yes Does the pt Need Aspirin: Yes Condition: Stable Referrals: PRIMARY CARE,MD [Primary Care Provider] - 3-5 Days Time of Disposition: 10:55
[2019-06-29 09:35] LABS: Basophils # (Auto) 0.1 K/mm3 (0.0-0.1); Basophils % (Auto) 0.9 % (0.0-1.8); Eosinophils % (Auto) 0.3 % (0.0-4.3); Hematocrit 35.1 % (30.3-42.9); Hemoglobin 11.7 gm/dl (10.1-14.3); Lymphocytes # (Auto) 1.7 K/mm3 (1.2-5.4); Lymphocytes % (Auto) 23.7 % (13.4-35.0); Mean Corpuscular HGB Conc 33 % (30-34); Mean Corpuscular Volume 82 fl (79-97); Monocytes # (Auto) 0.5 K/mm3 (0.0-0.8); Platelet Count 346 K/mm3 (140-440); Red Blood Count 4.27 M/mm3 (3.65-5.03); Red Cell Distribution Width 15.4 % (13.2-15.2)
--- NOTE | 2019-06-29 09:38 | Cat Scan Report ---
CT HEAD WITHOUT CONTRAST INDICATION / CLINICAL INFORMATION: recurrent seizures. Nonresponsive. TECHNIQUE: All CT scans at this location are performed using CT dose reduction for ALARA by means of automated e xposure control. COMPARISON: CT dated 03/29/19 FINDINGS: HEMORRHAGE: None. EXTRA-AXIAL SPACES: Normal in size and morphology for the patient's age. VENTRICULAR SYSTEM: Ventricles are prominent but unchanged. CEREBRAL PARENCHYMA: White matter hypodensities are unchanged and likely related to microangiopathy. MIDLINE SHIFT OR HERNIATION: None. CEREBELLUM / BRAINSTEM: No significant abnormality. ORBITS: Normal as visualized. SOFT TISSUES of HEAD: No significant abnormality. CALVARIUM: No significant abnormality. PARANASAL SINUSES / MASTOID AIR CELLS: Normal as visualized. ADDITIONAL FINDINGS: None. IMPRESSION: 1. No acute intracranial abnormality. 2. Chronic and age-related findings. 3. No significant change. Signer Name: Colby Davison MD Signed: 06/29/2019 9:34 AM Workstation Name: [id number]
[2019-06-29 09:45] LABS: Creatine Kinase MB 2.6 ng/mL (0.0-4.0)
[2019-06-29] MEDS ORDERED: LIP THERAPY VASELINE TP PRN (09:47)
[2019-06-29] MEDS ORDERED: LORazepam 2 MG/ML VIAL IV PRN ×2 (09:47→22:50)
[2019-06-29] MEDS ORDERED: MINERAL OIL/PETROLATUM, WHITE OPHTH OINT 3.5 GM OU PRN (09:47)
[2019-06-29 09:49] LABS: Alanine Aminotransferase 14 units/L (7-56); Albumin 3.6 g/dL (3.9-5); BUN/Creatinine Ratio 35; Bilirubin,Direct < 0.2 mg/dL (0-0.2); Blood Urea Nitrogen 14 mg/dL (7-17); Calcium 9.1 mg/dL (8.4-10.2); Hemolysis Index 1
[2019-06-29] MEDS ORDERED: SODIUM CHLORIDE 0.9% 1000 ML 1,000 ML ONE (10:00)
[2019-06-29 10:03] LABS: INR 1.01 (0.87-1.13)
[2019-06-29] MEDS ORDERED: SUCCINYLCHOLINE CHLORIDE 200 MG/10 ML INJ MDV ONE (10:03)
[2019-06-29] MEDS ORDERED: MIDAZOLAM 5 MG/5 ML INJ MDV IV ONE (10:03)
[2019-06-29 10:04] LABS: Partial Thromboplastin Time 27.7 Sec. (24.2-36.6)
--- NOTE | 2019-06-29 10:41 | XRay Report ---
CHEST 1 VIEW 06/29/2019 10:06 AM INDICATION / CLINICAL INFORMATION: ETT placement. COMPARISON: 8:43 AM FINDINGS: SUPPORT DEVICES: Endotracheal tube has been placed with the tip 3.6 cm above the estefania in expected p osition. Esophagogastric tube has been placed into the stomach in expected position. HEART / MEDIASTINUM: No significant abnormality. LUNGS / PLEURA: Interval development of patchy pulmonary opacity in the right midlung. No pneumothora x. ADDITIONAL FINDINGS: No significant additional findings. IMPRESSION: 1. Endotracheal and esophagogastric tubes in expected position. 2. Interval development of right midlung pulmonary opacity may represent infiltrate. Aspiration could be considered. Signer Name: Colby Davison MD Signed: 06/29/2019 10:37 AM Workstation Name: [id number]
[2019-06-29] MEDS ORDERED: SUCCINYLCHOLINE CHLORIDE 200 MG/10 ML INJ MDV IV ONE (10:53)
[2019-06-29] MEDS ORDERED: ASPIRIN 300 MG RECT SUPP PR ONE (10:55)
[2019-06-29 10:57] LABS: ABG Base Excess 2.4 mmol/L (-2.0-3.0); ABG HCO3 26.5 mmol/L (20.0-26.0); ABG Methemoglobin 0.7 % (0.0-1.5); ABG Oxygen Saturation 99.4 % (95.0-99.0); ABG PCO2 38.9 mm Hg; ABG PH 7.45 pH Units (7.350-7.450); ABG PO2 257.4 mm Hg (80.0-90.0)
[2019-06-29] MEDS: LORazepam 100 MG in SODIUM CHLORIDE 0.9% 50 ML, EMPTY BAG 0 ML IV SCH (10:59)
[2019-06-29] MEDS ORDERED: MIDAZOLAM 5 MG/5 ML INJ MDV IV NR (11:00)
--- NOTE | 2019-06-29 13:48 | Consultation ---
History of Present Illness Consult date: 06/29/19 Requesting physician: NORMA FERNANDEZ Reason for consult: other (Status epilepticus) History of present illness: 63 y/o female admitted with status epilepticus, required vent support for seizure . Medications and Allergies Allergies Allergy/AdvReac Type Severity Reaction Status Date / Time No Known Allergies Allergy Unverified 03/29/19 20:00 Home Medications Medication Instructions Recorded Confirmed Last Taken Type Acetaminophen [Acetaminophen TAB] 1,000 mg PO Q8HR PRN 03/30/19 06/29/19 Unknown History Aspirin EC [Halfprin EC] 81 mg PO QDAY 03/30/19 06/29/19 Unknown History Atorvastatin [Lipitor] 40 mg PO QHS 03/30/19 06/29/19 Unknown History Latanoprost 0.005% 1 drop OP QPM 03/30/19 06/29/19 Unknown History Menthol/Camphor [Dermasarra 222 ml TP PRN PRN 03/30/19 06/29/19 Unknown History Anti-Itch Lotion] Sulindac 200 mg PO BID PRN 03/30/19 06/29/19 Unknown History Venlafaxine ER 150 mg PO DAILY 03/30/19 06/29/19 Unknown History Metoprolol [Lopressor TAB] 12.5 mg PO BID #30 tablet 04/03/19 06/29/19 Unknown Rx levETIRAcetam [Keppra TAB] 500 mg PO BID #60 tablet 04/03/19 06/29/19 Unknown Rx Potassium Chloride [K-Dur] 40 meq PO QDAY 06/29/19 06/29/19 Unknown History Tizanidine HCl [Tizanidine 2mg tab] 4 mg PO BID PRN 06/29/19 06/29/19 Unknown History hydroCHLOROthiazide [HCTZ] 25 mg PO QDAY 06/29/19 06/29/19 Unknown History traMADoL [Ultram] 50 mg PO Q8H PRN 06/29/19 06/29/19 Unknown History Active Meds: Active Medications Hydrophilic Ointment (Vaseline Lip Therapy) 1 applic TP Q2HR PRN PRN Reason: Dry Lips Lorazepam 100 mg/ Sodium Chloride/ Miscellaneous Information 100 mls @ 1 mls/hr IV TITR JANES; Protocol Last Admin: 06/29/19 10:59 Dose: 1 mg/hr, 1 mls/hr Documented by: Lorazepam (Ativan) 2 mg IV Q10MIN PRN PRN Reason: Agitation Midazolam HCl (Versed) 2 mg IV ONCE NR Stop: 06/29/19 23:59 Multi-Ingred Cream/Lotion/Oil/Oint (Artificial Tears Ophth Oint) 1 applic OU Q4HR PRN PRN Reason: Dry Eye(s) Physical Examination Vital signs: Vital Signs BP 134/81 06/29/19 08:26 Results - Laboratory Findings CBC and BMP: 06/29/19 08:39 06/29/19 08:39 ABG ABG pH 7.450 pH Units (7.350-7.450) 06/29/19 10:47 ABG pCO2 38.9 mm Hg 06/29/19 10:47 ABG pO2 257.4 mm Hg (80.0-90.0) H 06/29/19 10:47 ABG O2 Saturation 99.4 % (95.0-99.0) H 06/29/19 10:47 PT/INR, D-dimer PT 13.4 Sec. (12.2-14.9) 06/29/19 08:39 INR 1.01 (0.87-1.13) 06/29/19 08:39 Abnormal lab findings: Abnormal Labs 06/29/19 06/29/19 06/29/19 08:39 08:39 10:47 RDW 15.4 H ABG pO2 257.4 H ABG HCO3 26.5 H ABG O2 Saturation 99.4 H ABG Hemoglobin 11.4 L Potassium 3.5 L Creatinine 0.4 L Glucose 105 H Alkaline Phosphatase 154 H Albumin 3.6 L Assessment and Plan 63 y/o female with status epilepticus 1. Vent support 2. EEG 3. Neuro consult, suggest waiting until Monday 4. Reviewed Home meds, will restart Keppra. May need larger dose. CCT 31 minutes.
[2019-06-29 14:46] LABS: Bacteria,Urine 3+ /HPF (Negative); Bilirubin,Urine NEG (Negative); Blood,Urine NEG (Negative); Color,Urine Yellow (Yellow); Mucus,Urine 1+ /HPF; Protein,Urine <15 mg/dL mg/dL (Negative)
[2019-06-29] MEDS ORDERED: SODIUM BICARBONATE 325 MG TAB FEEDTUBE PRN (15:31)
[2019-06-29] MEDS ORDERED: MORPHINE 2 MG/1 ML INJ IV PRN (15:31)
[2019-06-29] MEDS ORDERED: ONDANSETRON 4 MG/2 ML INJ IV PRN (15:31)
[2019-06-29] MEDS ORDERED: ACETAMINOPHEN 325 MG TAB PO PRN (15:31)
[2019-06-29] MEDS ORDERED: HYDROmorphone 1 MG/1 ML INJ IV PRN (15:31)
[2019-06-29] MEDS ORDERED: SIMPLE SYRUP 15 ML FEEDTUBE PRN ×2 (15:31)
[2019-06-29] MEDS ORDERED: METOCLOPRAMIDE 10 MG/2 ML INJ IV PRN (15:31)
[2019-06-29] MEDS ORDERED: LIPASE 10,500/PROTEASE 25,000/AMYLASE 43,750 (UNITS) DR CAP FEEDTUBE PRN (15:31)
--- NOTE | 2019-06-29 15:36 | History and Physical Report ---
History of Present Illness Date of examination: 06/29/19 Date of admission: 06/29/19 10:55 Chief complaint: Continous seizures History of present illness: This is a 63-year-old female with a history of status epilepticus treated here in March requiring endotracheal intubation. Patient was continously seizing and hence intubated in ED for protection of airway.Post intubation sedated andseizures have resolved.Was alert and oriented prior to intubation. ------- Discharge summary from 04/03 Final discharge diagnosis: Status epilepticus, resolved - cont oral Keppra. Acute respiratory failure with hypoxia, required intubation - extubated on 03/31/19 - pt saturating well on room air UTI (urinary tract infection) - completed IV antibiotic - Urine culture was negative Multiple sclerosis - Continue supportive care Severe protein calorie malnutrition - cont oral supplements Hyperkalemia -treated and resolved Severe hypokalemia -repleted and resolved HTN with sinus tachycardia -Patient started on low-dose metoprolol -Her home HCTZ discontinued Positive Haemophilus parainfluenzae Hospital course: In the ED, patient was intubated and placed on mechanical ventilator, then admitted to the ICU for continued management. In the ICU, she was placed on sedative agents including antiseizure agents. She also received IV antibiotic for UTI. Subsequently, she was extubated successfully and later transferred to the acute medicine floor for continued management. At some point, she received potassium supplements for hypokalemia. She was monitored without any adverse events and was then deemed stable for discharge back to the facility. Of note, due to predisposition to hypokalemia with HCTZ use, her antihypertensive was changed to low-dose metoprolol which will help her tachycardia. Disposition: [id number]/[id number] [facility] Time spent for discharge: 38 minutes Past Medical History Previous Medical History?: Yes Hypertension: Yes Headaches / Migraines: Yes Seizures: Yes Additional medical history: elevated cholesterol. multiple sclerosis Surgical History Additional Surgical History: DINORA Social History Smoking Status: Unknown if ever smoked Medications Home Medications: Home Medications Medication Instructions Recorded Confirmed Last Taken Type Acetaminophen [Acetaminophen TAB] 1,000 mg PO Q8HR PRN 03/30/19 06/29/19 Unknown History Aspirin EC [Halfprin EC] 81 mg PO QDAY 03/30/19 06/29/19 Unknown History Atorvastatin [Lipitor] 40 mg PO QHS 03/30/19 06/29/19 Unknown History Latanoprost 0.005% 1 drop OP QPM 03/30/19 06/29/19 Unknown History Menthol/Camphor [Dermasarra 222 ml TP PRN PRN 03/30/19 06/29/19 Unknown History Anti-Itch Lotion] Sulindac 200 mg PO BID PRN 03/30/19 06/29/19 Unknown History Venlafaxine ER 150 mg PO DAILY 03/30/19 06/29/19 Unknown History Metoprolol [Lopressor TAB] 12.5 mg PO BID #30 tablet 04/03/19 06/29/19 Unknown Rx levETIRAcetam [Keppra TAB] 500 mg PO BID #60 tablet 04/03/19 06/29/19 Unknown Rx Potassium Chloride [K-Dur] 40 meq PO QDAY 06/29/19 06/29/19 Unknown History Tizanidine HCl [Tizanidine 2mg tab] 4 mg PO BID PRN 06/29/19 06/29/19 Unknown History hydroCHLOROthiazide [HCTZ] 25 mg PO QDAY 06/29/19 06/29/19 Unknown History traMADoL [Ultram] 50 mg PO Q8H PRN 06/29/19 06/29/19 Unknown History Review of Systems ROS: Stated complaint: SEIZURE Other details as noted in HPI Comment: Unobtainable due to pts medical conditions Medications and Allergies Allergies Allergy/AdvReac Type Severity Reaction Status Date / Time No Known Allergies Allergy Unverified 03/29/19 20:00 Home Medications Medication Instructions Recorded Confirmed Last Taken Type Acetaminophen [Acetaminophen TAB] 1,000 mg PO Q8HR PRN 03/30/19 06/29/19 Unknown History Aspirin EC [Halfprin EC] 81 mg PO QDAY 03/30/19 06/29/19 Unknown History Atorvastatin [Lipitor] 40 mg PO QHS 03/30/19 06/29/19 Unknown History Latanoprost 0.005% 1 drop OP QPM 03/30/19 06/29/19 Unknown History Menthol/Camphor [Dermasarra 222 ml TP PRN PRN 03/30/19 06/29/19 Unknown History Anti-Itch Lotion] Sulindac 200 mg PO BID PRN 03/30/19 06/29/19 Unknown History Venlafaxine ER 150 mg PO DAILY 03/30/19 06/29/19 Unknown History Metoprolol [Lopressor TAB] 12.5 mg PO BID #30 tablet 04/03/19 06/29/19 Unknown Rx levETIRAcetam [Keppra TAB] 500 mg PO BID #60 tablet 04/03/19 06/29/19 Unknown Rx Potassium Chloride [K-Dur] 40 meq PO QDAY 06/29/19 06/29/19 Unknown History Tizanidine HCl [Tizanidine 2mg tab] 4 mg PO BID PRN 06/29/19 06/29/19 Unknown History hydroCHLOROthiazide [HCTZ] 25 mg PO QDAY 06/29/19 06/29/19 Unknown History traMADoL [Ultram] 50 mg PO Q8H PRN 06/29/19 06/29/19 Unknown History Active Meds: Active Medications Hydrophilic Ointment (Vaseline Lip Therapy) 1 applic TP Q2HR PRN PRN Reason: Dry Lips Lorazepam 100 mg/ Sodium Chloride/ Miscellaneous Information 100 mls @ 1 mls/hr IV TITR JANES; Protocol Last Admin: 06/29/19 10:59 Dose: 1 mg/hr, 1 mls/hr Documented by: Levetiracetam 1,000 mg/ (Dextrose) 110 mls @ 400 mls/hr IV Q12HR JANES Lorazepam (Ativan) 2 mg IV Q10MIN PRN PRN Reason: Agitation Midazolam HCl (Versed) 2 mg IV ONCE NR Stop: 06/29/19 23:59 Multi-Ingred Cream/Lotion/Oil/Oint (Artificial Tears Ophth Oint) 1 applic OU Q4HR PRN PRN Reason: Dry Eye(s) Exam - Physical Exam Narrative exam: Patient intubated - Constitutional Vitals: Temp Pulse Resp BP Pulse Ox 97.9 F 115 H 16 133/89 100 06/29/19 08:35 06/29/19 13:21 06/29/19 12:00 06/29/19 13:21 06/29/19 13:21 General appearance: Present: mild distress, well-nourished - EENT Eyes: Present: PERRL ENT: hearing intact, clear oral mucosa - Neck Neck: Present: supple, normal ROM - Respiratory Respiratory effort: normal Respiratory: bilateral: CTA - Cardiovascular Heart rate: 78 Rhythm: regular Heart Sounds: Present: S1 & S2. Absent: rub, click - Extremities Extremities: no ischemia, pulses intact, pulses symmetrical, No edema Peripheral Pulses: within normal limits - Abdominal General gastrointestinal: Present: soft, non-tender, non-distended, normal bowel sounds Female genitourinary: Present: normal - Integumentary Integumentary: Present: clear, warm, dry - Musculoskeletal Musculoskeletal: generalized weakness - Psychiatric Psychiatric: other (Intubated,sedated) - Neurologic Neurologic: CNII-XII intact, moves all extremities - Allied Health Allied health notes reviewed: nursing Results - Labs CBC & Chem 7: 06/30/19 08:13 06/30/19 08:13 Labs: Laboratory Last Values WBC 7.1 K/mm3 (4.5-11.0) 06/29/19 08:39 RBC 4.27 M/mm3 (3.65-5.03) 06/29/19 08:39 Hgb 11.7 gm/dl (10.1-14.3) 06/29/19 08:39 Hct 35.1 % (30.3-42.9) 06/29/19 08:39 MCV 82 fl (79-97) 06/29/19 08:39 MCH 28 pg (28-32) 06/29/19 08:39 MCHC 33 % (30-34) 06/29/19 08:39 RDW 15.4 % (13.2-15.2) H 06/29/19 08:39 Plt Count 346 K/mm3 (140-440) 06/29/19 08:39 Lymph % (Auto) 23.7 % (13.4-35.0) 06/29/19 08:39 Rich % (Auto) 7.0 % (0.0-7.3) 06/29/19 08:39 Eos % (Auto) 0.3 % (0.0-4.3) 06/29/19 08:39 Baso % (Auto) 0.9 % (0.0-1.8) 06/29/19 08:39 Lymph # 1.7 K/mm3 (1.2-5.4) 06/29/19 08:39 Rich # 0.5 K/mm3 (0.0-0.8) 06/29/19 08:39 Eos # 0.0 K/mm3 (0.0-0.4) 06/29/19 08:39 Baso # 0.1 K/mm3 (0.0-0.1) 06/29/19 08:39 Seg Neutrophils % 68.1 % (40.0-70.0) 06/29/19 08:39 Seg Neutrophils # 4.9 K/mm3 (1.8-7.7) 06/29/19 08:39 PT 13.4 Sec. (12.2-14.9) 06/29/19 08:39 INR 1.01 (0.87-1.13) 06/29/19 08:39 APTT 27.7 Sec. (24.2-36.6) 06/29/19 08:39 ABG pH 7.450 pH Units (7.350-7.450) 06/29/19 10:47 ABG pCO2 38.9 mm Hg 06/29/19 10:47 ABG pO2 257.4 mm Hg (80.0-90.0) H 06/29/19 10:47 ABG HCO3 26.5 mmol/L (20.0-26.0) H 06/29/19 10:47 ABG O2 Saturation 99.4 % (95.0-99.0) H 06/29/19 10:47 ABG O2 Content 16.2 (0.0-44) 06/29/19 10:47 ABG Base Excess 2.4 mmol/L (-2.0-3.0) 06/29/19 10:47 ABG Hemoglobin 11.4 gm/dl (12.0-16.0) L 06/29/19 10:47 ABG Carboxyhemoglobin 1.0 % (0.0-5.0) 06/29/19 10:47 ABG Methemoglobin 0.7 % (0.0-1.5) 06/29/19 10:47 Oxyhemoglobin 97.8 % (95.0-99.0) 06/29/19 10:47 FiO2 50 % 06/29/19 10:47 Sodium 140 mmol/L (137-145) 06/29/19 08:39 Potassium 3.5 mmol/L (3.6-5.0) L 06/29/19 08:39 Chloride 100.0 mmol/L (98-107) 06/29/19 08:39 Carbon Dioxide 25 mmol/L (22-30) 06/29/19 08:39 Anion Gap 19 mmol/L 06/29/19 08:39 BUN 14 mg/dL (7-17) 06/29/19 08:39 Creatinine 0.4 mg/dL (0.7-1.2) L 06/29/19 08:39 Estimated GFR > 60 ml/min 06/29/19 08:39 BUN/Creatinine Ratio 35 % 06/29/19 08:39 Glucose 105 mg/dL (65-100) H 06/29/19 08:39 POC Glucose 80 (70-105) 06/29/19 08:48 Calcium 9.1 mg/dL (8.4-10.2) 06/29/19 08:39 Magnesium 2.00 mg/dL (1.7-2.3) 06/29/19 08:39 Total Bilirubin 0.30 mg/dL (0.1-1.2) 06/29/19 08:39 Direct Bilirubin < 0.2 mg/dL (0-0.2) 06/29/19 08:39 Indirect Bilirubin 0.1 mg/dL 06/29/19 08:39 AST 24 units/L (5-40) 06/29/19 08:39 ALT 14 units/L (7-56) 06/29/19 08:39 Alkaline Phosphatase 154 units/L (35-129) H 06/29/19 08:39 Total Creatine Kinase 132 units/L (30-135) 06/29/19 08:39 CK-MB (CK-2) 2.6 ng/mL (0.0-4.0) 06/29/19 08:39 CK-MB (CK-2) Rel Index 1.9 (0-4) 06/29/19 08:39 Troponin T < 0.010 ng/mL (0.00-0.029) 06/29/19 08:39 NT-Pro-B Natriuret Pep 193.4 pg/mL (0-900) 06/29/19 08:39 Total Protein 6.9 g/dL (6.3-8.2) 06/29/19 08:39 Albumin 3.6 g/dL (3.9-5) L 06/29/19 08:39 Albumin/Globulin Ratio 1.1 % 06/29/19 08:39 Urine Color Yellow (Yellow) 06/29/19 14:03 Urine Turbidity Cloudy (Clear) 06/29/19 14:03 Urine pH 7.0 (5.0-7.0) 06/29/19 14:03 Ur Specific [place] 1.015 (1.003-1.030) 06/29/19 14:03 Urine Protein <15 mg/dl mg/dL (Negative) 06/29/19 14:03 Urine Glucose (UA) Neg mg/dL (Negative) 06/29/19 14:03 Urine Ketones 20 mg/dL (Negative) 06/29/19 14:03 Urine Blood Neg (Negative) 06/29/19 14:03 Urine Nitrite Pos (Negative) 06/29/19 14:03 Urine Bilirubin Neg (Negative) 06/29/19 14:03 Urine Urobilinogen 4.0 mg/dL (<2.0) 06/29/19 14:03 Ur Leukocyte Esterase Tr (Negative) 06/29/19 14:03 Urine WBC (Auto) 11.0 /HPF (0.0-6.0) H 06/29/19 14:03 Urine RBC (Auto) 1.0 /HPF (0.0-6.0) 06/29/19 14:03 U Epithel Cells (Auto) 34.0 /HPF (0-13.0) H 06/29/19 14:03 Urine Bacteria (Auto) 3+ /HPF (Negative) 06/29/19 14:03 Urine Mucus 1+ /HPF 06/29/19 14:03 Short CBC 06/29/19 Range/Units 08:39 WBC 7.1 (4.5-11.0) K/mm3 Hgb 11.7 (10.1-14.3) gm/dl Hct 35.1 (30.3-42.9) % Plt Count 346 (140-440) K/mm3 BMP 06/29/19 08:39 Sodium 140 Potassium 3.5 L Chloride 100.0 Carbon Dioxide 25 BUN 14 Creatinine 0.4 L Glucose 105 H Calcium 9.1 Cardiac Enzymes 06/29/19 Range/Units 08:39 Total Creatine Kinase 132 (30-135) units/L CK-MB (CK-2) 2.6 (0.0-4.0) ng/mL Troponin T < 0.010 (0.00-0.029) ng/mL Liver Function 06/29/19 Range/Units 08:39 Total Bilirubin 0.30 (0.1-1.2) mg/dL Direct Bilirubin < 0.2 (0-0.2) mg/dL AST 24 (5-40) units/L ALT 14 (7-56) units/L Alkaline Phosphatase 154 H (35-129) units/L Albumin 3.6 L (3.9-5) g/dL Urine 06/29/19 Range/Units 14:03 Urine Color Yellow (Yellow) Urine pH 7.0 (5.0-7.0) Ur Specific [place] 1.015 (1.003-1.030) Urine Protein <15 mg/dl (Negative) mg/dL Urine Glucose (UA) Neg (Negative) mg/dL Short CBC 06/30/19 Range/Units 08:13 WBC 12.2 H (4.5-11.0) K/mm3 Hgb 12.8 (10.1-14.3) gm/dl Hct 38.4 (30.3-42.9) % Plt Count 270 (140-440) K/mm3 BMP 06/30/19 08:13 Sodium 136 L Potassium 3.6 Chloride 98.8 Carbon Dioxide 19 L BUN 8 Creatinine 0.3 L Glucose 84 Calcium 9.2 Liver Function 06/30/19 Range/Units 08:13 Total Bilirubin 0.60 (0.1-1.2) mg/dL AST 31 (5-40) units/L ALT 14 (7-56) units/L Alkaline Phosphatase 162 H (35-129) units/L Albumin 3.3 L (3.9-5) g/dL - Imaging and Cardiology CT Scan - head: report reviewed (NAF) Assessment and Plan Assessment and plan: CCT 35 minutes Advance Directives: Yes (Full code) VTE prophylaxis?: Chemical Plan of care discussed with patient/family: Yes - Patient Problems (1) Status epilepticus Current Visit: Yes Status: Acute Plan to address problem: IV keppra for now (2) Respiratory failure requiring intubation Current Visit: Yes Status: Acute Plan to address problem: Intubated for airway protection Weaning in progress (3) HTN (hypertension) Current Visit: Yes Status: Chronic Qualifiers: Hypertension type: essential hypertension Qualified Code(s): I10 - Essential (primary) hypertension Plan to address problem: Cont antihypertensives (4) HLD (hyperlipidemia) Current Visit: Yes Status: Chronic Qualifiers: Hyperlipidemia type: mixed hyperlipidemia Qualified Code(s): E78.2 - Mixed hyperlipidemia Plan to address problem: Hold statins for now (5) Glaucoma Current Visit: Yes Status: Acute Qualifiers: Glaucoma type: unspecified Laterality: bilateral Qualified Code(s): H40.9 - Unspecified glaucoma Plan to address problem: COnt Latanoprost eye drops (6) DVT prophylaxis Current Visit: No Status: Acute Plan to address problem: On Heparin and GI prophylaxis
[2019-06-29] MEDS ORDERED: D5W/0.9% NACL 1,000 ML IV SCH (16:00)
[2019-06-29] MEDS ORDERED: DEXTROSE 5% IN WATER 1,000 ML IV SCH (19:00)
[2019-06-29] MEDS: D5W/0.9% NACL 1,000 ML IV SCH (19:04)
[2019-06-29] MEDS: levETIRAcetam 1,000 MG in DEXTROSE 5% IN WATER 100 ML IV SCH (21:42)
[2019-06-29] MEDS: FAMOTIDINE 20 MG/2 ML INJ IV SCH (21:42)
--- NOTE | 2019-06-30 02:24 | XRay Report ---
CHEST 1 VIEW INDICATION / CLINICAL INFORMATION: follow up respiratory failure. COMPARISON: 06/29/2019, 1006 hours FINDINGS: SUPPORT DEVICES: Endotracheal tube and nasogastric tube appear unchanged HEART / MEDIASTINUM: Unchanged LUNGS / PLEURA: Mild improvement in pulmonary opacity in the right midlung zone.. No pneumothorax. ADDITIONAL FINDINGS: No significant additional findings. IMPRESSION: 1. Mild improvement in pulmonary opacity in the right midlung zone. No other significant change. Signer Name: Ty Suazo MD Signed: 06/30/2019 2:19 AM Workstation Name: [id number]
[2019-06-30 04:50] LABS: ABG HCO3 26.1 mmol/L (20.0-26.0); ABG PCO2 31.9 mm Hg; ABG PH 7.531 pH Units (7.350-7.450); ABG PO2 148.8 mm Hg (80.0-90.0)
[2019-06-30 04:55] LABS: ABG Methemoglobin 0.7 % (0.0-1.5)
[2019-06-30] MEDS ORDERED: SIMPLE SYRUP 15 ML FEEDTUBE PRN ×2 (08:45)
[2019-06-30] MEDS ORDERED: LIPASE 10,500/PROTEASE 25,000/AMYLASE 43,750 (UNITS) DR CAP FEEDTUBE PRN (08:45)
[2019-06-30] MEDS ORDERED: SODIUM BICARBONATE 325 MG TAB FEEDTUBE PRN (08:45)
[2019-06-30] MEDS: D5W/0.9% NACL 1,000 ML IV SCH ×2 (08:57→22:32)
[2019-06-30 09:12] LABS: Basophils # (Auto) 0.1 K/mm3 (0.0-0.1); Basophils % (Auto) 0.7 % (0.0-1.8); Eosinophils % (Auto) 0.3 % (0.0-4.3); Hematocrit 38.4 % (30.3-42.9); Hemoglobin 12.8 gm/dl (10.1-14.3); Lymphocytes # (Auto) 2.5 K/mm3 (1.2-5.4); Lymphocytes % (Auto) 20.6 % (13.4-35.0); Mean Corpuscular HGB Conc 33 % (30-34); Mean Corpuscular Volume 82 fl (79-97); Monocytes # (Auto) 1.4 K/mm3 (0.0-0.8); Monocytes % (Auto) 11.4 % (0.0-7.3); Red Blood Count 4.68 M/mm3 (3.65-5.03); Red Cell Distribution Width 15.4 % (13.2-15.2)
[2019-06-30 09:47] LABS: Alanine Aminotransferase 14 units/L (7-56); Albumin 3.3 g/dL (3.9-5); BUN/Creatinine Ratio 27; Blood Urea Nitrogen 8 mg/dL (7-17); Calcium 9.2 mg/dL (8.4-10.2); Hemolysis Index 20
[2019-06-30] MEDS: FAMOTIDINE 20 MG/2 ML INJ IV SCH ×2 (10:24→21:55)
[2019-06-30] MEDS: levETIRAcetam 1,000 MG in DEXTROSE 5% IN WATER 100 ML IV SCH ×2 (10:24→21:55)
[2019-06-30 10:56] LABS: Platelet Count 270 K/mm3 (140-440)
--- NOTE | 2019-06-30 11:45 | Progress Note ---
Assessment and Plan 63 y/o female with status epilepticus 1. Stopped Ativan Drip 2. In no seizure, wakes up, will extubate 3. If no seizure but not waking up EEG 4. If wakes but seizes again, will try ativan PRN to abort, if not able to then will restart ativan drip vs diprovan. CCT 31 minutes. Subjective Date of service: 06/30/19 Interval history: No seizure activity last night. Still on Ativan 1. Per nursing, patient actually out of her meds as she couldn't get to her follow up for [place]. Objective Vital Signs - 12hr 06/29/19 06/30/19 06/30/19 23:50 00:00 00:10 Temperature Pulse Rate 111 H 109 H 109 H Pulse Rate [ 107 H From Monitor] Respiratory 16 16 16 Rate Blood Pressure 148/96 145/96 145/96 O2 Sat by Pulse 100 100 100 Oximetry 06/30/19 06/30/19 06/30/19 00:20 00:30 00:40 Temperature Pulse Rate 109 H 108 H 107 H Pulse Rate [ From Monitor] Respiratory 16 16 16 Rate Blood Pressure 145/96 145/97 145/97 O2 Sat by Pulse 100 100 100 Oximetry 06/30/19 06/30/19 06/30/19 00:50 01:00 01:10 Temperature Pulse Rate 106 H 107 H 107 H Pulse Rate [ From Monitor] Respiratory 16 16 16 Rate Blood Pressure 145/97 133/96 133/96 O2 Sat by Pulse 100 100 100 Oximetry 06/30/19 06/30/19 06/30/19 01:20 01:30 01:40 Temperature Pulse Rate 108 H 108 H 108 H Pulse Rate [ From Monitor] Respiratory 16 16 16 Rate Blood Pressure 133/96 134/94 134/94 O2 Sat by Pulse 100 100 100 Oximetry 06/30/19 06/30/19 06/30/19 01:50 02:00 02:10 Temperature Pulse Rate 109 H 104 H Pulse Rate [ From Monitor] Respiratory 16 16 Rate Blood Pressure 134/94 143/97 143/97 O2 Sat by Pulse 100 100 100 Oximetry 06/30/19 06/30/19 06/30/19 02:20 02:30 02:40 Temperature Pulse Rate 105 H 105 H 109 H Pulse Rate [ From Monitor] Respiratory 16 16 16 Rate Blood Pressure 143/97 137/92 143/97 O2 Sat by Pulse 100 100 100 Oximetry 06/30/19 06/30/19 06/30/19 02:50 03:00 03:10 Temperature Pulse Rate 112 H 112 H 108 H Pulse Rate [ From Monitor] Respiratory 16 16 16 Rate Blood Pressure 143/97 130/91 130/91 O2 Sat by Pulse 100 100 100 Oximetry 06/30/19 06/30/19 06/30/19 03:20 03:22 03:30 Temperature 98.4 F Pulse Rate 107 H 107 H Pulse Rate [ From Monitor] Respiratory 16 16 Rate Blood Pressure 130/91 136/91 O2 Sat by Pulse 100 100 Oximetry 06/30/19 06/30/19 06/30/19 03:40 03:50 04:00 Temperature Pulse Rate 108 H 108 H 107 H Pulse Rate [ 109 H From Monitor] Respiratory 16 16 16 Rate Blood Pressure 136/91 136/91 141/90 O2 Sat by Pulse 100 100 100 Oximetry 06/30/19 06/30/19 06/30/19 04:10 04:20 04:30 Temperature Pulse Rate 108 H 108 H 108 H Pulse Rate [ From Monitor] Respiratory 16 16 16 Rate Blood Pressure 141/90 141/90 137/89 O2 Sat by Pulse 100 100 100 Oximetry 06/30/19 06/30/19 06/30/19 04:40 04:45 04:50 Temperature Pulse Rate 107 H 109 H 107 H Pulse Rate [ From Monitor] Respiratory 16 16 Rate Blood Pressure 137/89 134/89 137/89 O2 Sat by Pulse 100 100 100 Oximetry 06/30/19 06/30/19 06/30/19 05:00 05:10 05:20 Temperature Pulse Rate 108 H 109 H 109 H Pulse Rate [ From Monitor] Respiratory 16 16 16 Rate Blood Pressure 134/89 137/89 137/89 O2 Sat by Pulse 100 100 100 Oximetry 06/30/19 06/30/19 06/30/19 05:30 05:40 05:50 Temperature Pulse Rate 109 H 109 H 110 H Pulse Rate [ From Monitor] Respiratory 16 16 16 Rate Blood Pressure 138/95 134/89 134/89 O2 Sat by Pulse 100 100 100 Oximetry 06/30/19 06/30/19 06/30/19 06:00 06:10 06:20 Temperature Pulse Rate 109 H 110 H 110 H Pulse Rate [ From Monitor] Respiratory 15 16 16 Rate Blood Pressure 135/96 138/95 138/95 O2 Sat by Pulse 100 100 100 Oximetry 06/30/19 06/30/19 06/30/19 06:30 06:40 06:50 Temperature Pulse Rate 111 H 108 H 113 H Pulse Rate [ From Monitor] Respiratory 16 16 16 Rate Blood Pressure 147/95 135/96 135/96 O2 Sat by Pulse 100 100 100 Oximetry 06/30/19 06/30/19 06/30/19 07:00 07:10 07:20 Temperature Pulse Rate 112 H 113 H 114 H Pulse Rate [ From Monitor] Respiratory 16 16 16 Rate Blood Pressure 141/92 147/95 147/95 O2 Sat by Pulse 100 100 100 Oximetry 06/30/19 06/30/19 06/30/19 07:30 07:40 07:50 Temperature Pulse Rate 114 H 115 H 114 H Pulse Rate [ From Monitor] Respiratory 15 16 16 Rate Blood Pressure 141/95 141/92 141/92 O2 Sat by Pulse 100 100 100 Oximetry 06/30/19 06/30/19 06/30/19 07:57 08:00 08:10 Temperature 98.9 F Pulse Rate 114 H 114 H 114 H Pulse Rate [ 112 H From Monitor] Respiratory 16 16 Rate Blood Pressure 141/95 145/94 141/95 O2 Sat by Pulse 100 100 100 Oximetry 06/30/19 06/30/19 06/30/19 08:20 08:30 08:40 Temperature Pulse Rate 112 H 112 H 113 H Pulse Rate [ From Monitor] Respiratory 16 16 18 Rate Blood Pressure 141/95 144/91 145/94 O2 Sat by Pulse 100 100 100 Oximetry 06/30/19 06/30/19 06/30/19 08:50 09:00 09:10 Temperature Pulse Rate 111 H 112 H 112 H Pulse Rate [ From Monitor] Respiratory 16 16 16 Rate Blood Pressure 145/94 128/84 144/91 O2 Sat by Pulse 100 100 100 Oximetry 06/30/19 06/30/19 06/30/19 09:20 09:30 09:40 Temperature Pulse Rate 112 H 115 H 112 H Pulse Rate [ From Monitor] Respiratory 16 14 16 Rate Blood Pressure 144/91 144/91 128/84 O2 Sat by Pulse 100 100 95 Oximetry 06/30/19 06/30/19 06/30/19 09:50 10:00 10:10 Temperature Pulse Rate 114 H 114 H 115 H Pulse Rate [ From Monitor] Respiratory 16 16 16 Rate Blood Pressure 128/84 115/81 115/81 O2 Sat by Pulse 100 100 100 Oximetry 06/30/19 06/30/19 06/30/19 10:20 10:30 10:40 Temperature Pulse Rate 115 H 114 H 111 H Pulse Rate [ From Monitor] Respiratory 16 16 16 Rate Blood Pressure 115/81 124/79 124/79 O2 Sat by Pulse 100 100 100 Oximetry 06/30/19 06/30/19 06/30/19 10:50 11:00 11:10 Temperature Pulse Rate 112 H 113 H 114 H Pulse Rate [ From Monitor] Respiratory 16 16 16 Rate Blood Pressure 124/79 120/83 120/83 O2 Sat by Pulse 100 100 100 Oximetry CBC and BMP: 06/30/19 08:13 06/30/19 08:13 ABG, PT/INR, D-dimer: ABG ABG pH 7.531 pH Units (7.350-7.450) H 06/30/19 04:35 ABG pCO2 31.9 mm Hg 06/30/19 04:35 ABG pO2 148.8 mm Hg (80.0-90.0) H 06/30/19 04:35 ABG O2 Saturation 99.0 % (95.0-99.0) 06/30/19 04:35 PT/INR, D-dimer PT 13.4 Sec. (12.2-14.9) 06/29/19 08:39 INR 1.01 (0.87-1.13) 06/29/19 08:39 Abnormal lab findings: Abnormal Labs 06/29/19 06/29/19 06/29/19 08:39 08:39 10:47 WBC MCH RDW 15.4 H [place] % (Auto) [place] # Seg Neutrophils # ABG pH ABG pO2 257.4 H ABG HCO3 26.5 H ABG O2 Saturation 99.4 H ABG Base Excess ABG Hemoglobin 11.4 L Sodium Potassium 3.5 L Carbon Dioxide Creatinine 0.4 L Glucose 105 H Alkaline Phosphatase 154 H Albumin 3.6 L Urine WBC (Auto) U Epithel Cells (Auto) 06/29/19 06/30/19 06/30/19 14:03 04:35 08:13 WBC 12.2 H MCH 27 L RDW 15.4 H [place] % (Auto) 11.4 H [place] # 1.4 H Seg Neutrophils # 8.2 H ABG pH 7.531 H ABG pO2 148.8 H ABG HCO3 26.1 H ABG O2 Saturation ABG Base Excess 4.0 H ABG Hemoglobin 11.8 L Sodium Potassium Carbon Dioxide Creatinine Glucose Alkaline Phosphatase Albumin Urine WBC (Auto) 11.0 H U Epithel Cells (Auto) 34.0 H 06/30/19 08:13 WBC MCH RDW [place] % (Auto) [place] # Seg Neutrophils # ABG pH ABG pO2 ABG HCO3 ABG O2 Saturation ABG Base Excess ABG Hemoglobin Sodium 136 L Potassium Carbon Dioxide 19 L Creatinine 0.3 L Glucose Alkaline Phosphatase 162 H Albumin 3.3 L Urine WBC (Auto) U Epithel Cells (Auto)
--- NOTE | 2019-06-30 15:15 | Progress Note ---
Subjective Date of service: 06/30/19 Objective - Constitutional Vitals: Vital Signs - 12hr 06/30/19 06/30/19 06/30/19 03:20 03:22 03:30 Temperature 98.4 F Pulse Rate 107 H 107 H Pulse Rate [ From Monitor] Respiratory 16 16 Rate Blood Pressure 130/91 136/91 O2 Sat by Pulse 100 100 Oximetry 06/30/19 06/30/19 06/30/19 03:40 03:50 04:00 Temperature Pulse Rate 108 H 108 H 107 H Pulse Rate [ 109 H From Monitor] Respiratory 16 16 16 Rate Blood Pressure 136/91 136/91 141/90 O2 Sat by Pulse 100 100 100 Oximetry 06/30/19 06/30/19 06/30/19 04:10 04:20 04:30 Temperature Pulse Rate 108 H 108 H 108 H Pulse Rate [ From Monitor] Respiratory 16 16 16 Rate Blood Pressure 141/90 141/90 137/89 O2 Sat by Pulse 100 100 100 Oximetry 06/30/19 06/30/19 06/30/19 04:40 04:45 04:50 Temperature Pulse Rate 107 H 109 H 107 H Pulse Rate [ From Monitor] Respiratory 16 16 Rate Blood Pressure 137/89 134/89 137/89 O2 Sat by Pulse 100 100 100 Oximetry 06/30/19 06/30/19 06/30/19 05:00 05:10 05:20 Temperature Pulse Rate 108 H 109 H 109 H Pulse Rate [ From Monitor] Respiratory 16 16 16 Rate Blood Pressure 134/89 137/89 137/89 O2 Sat by Pulse 100 100 100 Oximetry 06/30/19 06/30/19 06/30/19 05:30 05:40 05:50 Temperature Pulse Rate 109 H 109 H 110 H Pulse Rate [ From Monitor] Respiratory 16 16 16 Rate Blood Pressure 138/95 134/89 134/89 O2 Sat by Pulse 100 100 100 Oximetry 06/30/19 06/30/19 06/30/19 06:00 06:10 06:20 Temperature Pulse Rate 109 H 110 H 110 H Pulse Rate [ From Monitor] Respiratory 15 16 16 Rate Blood Pressure 135/96 138/95 138/95 O2 Sat by Pulse 100 100 100 Oximetry 06/30/19 06/30/19 06/30/19 06:30 06:40 06:50 Temperature Pulse Rate 111 H 108 H 113 H Pulse Rate [ From Monitor] Respiratory 16 16 16 Rate Blood Pressure 147/95 135/96 135/96 O2 Sat by Pulse 100 100 100 Oximetry 06/30/19 06/30/19 06/30/19 07:00 07:10 07:20 Temperature Pulse Rate 112 H 113 H 114 H Pulse Rate [ From Monitor] Respiratory 16 16 16 Rate Blood Pressure 141/92 147/95 147/95 O2 Sat by Pulse 100 100 100 Oximetry 06/30/19 06/30/19 06/30/19 07:30 07:40 07:50 Temperature Pulse Rate 114 H 115 H 114 H Pulse Rate [ From Monitor] Respiratory 15 16 16 Rate Blood Pressure 141/95 141/92 141/92 O2 Sat by Pulse 100 100 100 Oximetry 06/30/19 06/30/19 06/30/19 07:57 08:00 08:10 Temperature 98.9 F Pulse Rate 114 H 114 H 114 H Pulse Rate [ 112 H From Monitor] Respiratory 16 16 Rate Blood Pressure 141/95 145/94 141/95 O2 Sat by Pulse 100 100 100 Oximetry 06/30/19 06/30/19 06/30/19 08:20 08:30 08:40 Temperature Pulse Rate 112 H 112 H 113 H Pulse Rate [ From Monitor] Respiratory 16 16 18 Rate Blood Pressure 141/95 144/91 145/94 O2 Sat by Pulse 100 100 100 Oximetry 06/30/19 06/30/19 06/30/19 08:50 09:00 09:10 Temperature Pulse Rate 111 H 112 H 112 H Pulse Rate [ From Monitor] Respiratory 16 16 16 Rate Blood Pressure 145/94 128/84 144/91 O2 Sat by Pulse 100 100 100 Oximetry 06/30/19 06/30/19 06/30/19 09:20 09:30 09:40 Temperature Pulse Rate 112 H 115 H 112 H Pulse Rate [ From Monitor] Respiratory 16 14 16 Rate Blood Pressure 144/91 144/91 128/84 O2 Sat by Pulse 100 100 95 Oximetry 06/30/19 06/30/19 06/30/19 09:50 10:00 10:10 Temperature Pulse Rate 114 H 114 H 115 H Pulse Rate [ From Monitor] Respiratory 16 16 16 Rate Blood Pressure 128/84 115/81 115/81 O2 Sat by Pulse 100 100 100 Oximetry 06/30/19 06/30/19 06/30/19 10:20 10:30 10:40 Temperature Pulse Rate 115 H 114 H 111 H Pulse Rate [ From Monitor] Respiratory 16 16 16 Rate Blood Pressure 115/81 124/79 124/79 O2 Sat by Pulse 100 100 100 Oximetry 06/30/19 06/30/19 06/30/19 10:50 11:00 11:10 Temperature Pulse Rate 112 H 113 H 114 H Pulse Rate [ From Monitor] Respiratory 16 16 16 Rate Blood Pressure 124/79 120/83 120/83 O2 Sat by Pulse 100 100 100 Oximetry 06/30/19 06/30/19 06/30/19 11:20 11:30 11:40 Temperature Pulse Rate 113 H 114 H 113 H Pulse Rate [ From Monitor] Respiratory 16 16 16 Rate Blood Pressure 120/83 119/82 119/82 O2 Sat by Pulse 100 100 100 Oximetry 06/30/19 06/30/19 06/30/19 11:44 11:50 12:00 Temperature 98.9 F Pulse Rate 114 H 105 H 104 H Pulse Rate [ From Monitor] Respiratory 16 16 Rate Blood Pressure 119/82 119/82 127/81 O2 Sat by Pulse 100 100 Oximetry 06/30/19 06/30/19 06/30/19 12:10 12:20 12:30 Temperature Pulse Rate 108 H 110 H 113 H Pulse Rate [ From Monitor] Respiratory 16 16 16 Rate Blood Pressure 127/81 127/81 O2 Sat by Pulse 100 100 100 Oximetry 06/30/19 06/30/19 06/30/19 12:40 12:50 13:00 Temperature Pulse Rate 113 H 118 H 115 H Pulse Rate [ From Monitor] Respiratory 16 22 16 Rate Blood Pressure 127/81 127/81 135/94 O2 Sat by Pulse 100 Oximetry 06/30/19 06/30/19 06/30/19 13:10 13:20 13:30 Temperature Pulse Rate 115 H 116 H 114 H Pulse Rate [ From Monitor] Respiratory 16 16 18 Rate Blood Pressure 135/94 135/94 121/77 O2 Sat by Pulse 100 100 99 Oximetry 06/30/19 06/30/19 06/30/19 13:40 13:50 14:00 Temperature Pulse Rate 113 H 113 H 111 H Pulse Rate [ From Monitor] Respiratory 20 16 16 Rate Blood Pressure 121/77 121/77 129/86 O2 Sat by Pulse 100 100 100 Oximetry 06/30/19 14:10 Temperature Pulse Rate 110 H Pulse Rate [ From Monitor] Respiratory 16 Rate Blood Pressure 129/86 O2 Sat by Pulse 100 Oximetry - Labs CBC & Chem 7: 06/30/19 08:13 06/30/19 08:13 Labs: Abnormal lab results 06/30/19 06/30/19 06/30/19 Range/Units 04:35 08:13 08:13 WBC 12.2 H (4.5-11.0) K/mm3 MCH 27 L (28-32) pg RDW 15.4 H (13.2-15.2) % [place] % (Auto) 11.4 H (0.0-7.3) % [place] # 1.4 H (0.0-0.8) K/mm3 Seg Neutrophils # 8.2 H (1.8-7.7) K/mm3 ABG pH 7.531 H (7.350-7.450) pH Units ABG pO2 148.8 H (80.0-90.0) mm Hg ABG HCO3 26.1 H (20.0-26.0) mmol/L ABG Base Excess 4.0 H (-2.0-3.0) mmol/L ABG Hemoglobin 11.8 L (12.0-16.0) gm/dl Sodium 136 L (137-145) mmol/L Carbon Dioxide 19 L (22-30) mmol/L Creatinine 0.3 L (0.7-1.2) mg/dL Alkaline Phosphatase 162 H (35-129) units/L Albumin 3.3 L (3.9-5) g/dL
--- NOTE | 2019-07-01 02:41 | XRay Report ---
CHEST 1 VIEW INDICATION / CLINICAL INFORMATION: follow up respiratory failure. COMPARISON: 06/30/2019 FINDINGS: SUPPORT DEVICES: Endotracheal tube and nasogastric tube appear unchanged HEART / MEDIASTINUM: Unchanged LUNGS / PLEURA: There is further improvement in the pulmonary opacity in the right midlung zone.. No pneumothorax. ADDITIONAL FINDINGS: No significant additional findings. IMPRESSION: 1. There is further improvement in the pulmonary opacity in the right midlung zone. Signer Name: Ty Suazo MD Signed: 07/01/2019 2:36 AM Workstation Name: [id number]
[2019-07-01 04:27] LABS: ABG Base Excess 1.7 mmol/L (-2.0-3.0); ABG Methemoglobin 0.7 % (0.0-1.5); ABG Oxygen Saturation 98.9 % (95.0-99.0); ABG PCO2 34.6 mm Hg; ABG PH 7.477 pH Units (7.350-7.450); ABG PO2 148.1 mm Hg (80.0-90.0)
--- NOTE | 2019-07-01 05:50 | Progress Note ---
Assessment and Plan CCT 35 minutes - Patient Problems (1) Status epilepticus Current Visit: Yes Status: Acute Plan to address problem: IV keppra for now EEG Neuro consult (2) Respiratory failure requiring intubation Current Visit: Yes Status: Acute Plan to address problem: Intubated for airway protection Weaning in progress (3) HTN (hypertension) Current Visit: Yes Status: Chronic Qualifiers: Hypertension type: essential hypertension Qualified Code(s): I10 - Essential (primary) hypertension Plan to address problem: Cont antihypertensives (4) HLD (hyperlipidemia) Current Visit: Yes Status: Chronic Qualifiers: Hyperlipidemia type: mixed hyperlipidemia Qualified Code(s): E78.2 - Mixed hyperlipidemia Plan to address problem: Hold statins for now (5) Glaucoma Current Visit: Yes Status: Acute Qualifiers: Glaucoma type: unspecified Laterality: bilateral Qualified Code(s): H40.9 - Unspecified glaucoma Plan to address problem: COnt Latanoprost eye drops (6) DVT prophylaxis Current Visit: No Status: Acute Plan to address problem: On Heparin and GI prophylaxis Subjective Date of service: 06/30/19 Principal diagnosis: Status epilepticus Interval history: This is a 63-year-old female with a history of status epilepticus treated here in March requiring endotracheal intubation. Patient was continously seizing and hence intubated in ED for protection of airway.Post intubation sedated andseizures have resolved.Was alert and oriented prior to intubation. No seizures ovenite Objective - Exam Narrative Exam: Patient intubated - Constitutional Vitals: Vital Signs - 12hr 06/30/19 06/30/19 06/30/19 17:50 18:00 18:10 Temperature Pulse Rate 120 H 120 H 121 H Pulse Rate [ From Monitor] Respiratory 16 16 16 Rate Blood Pressure 127/79 114/68 114/68 O2 Sat by Pulse 100 100 100 Oximetry 06/30/19 06/30/19 06/30/19 18:20 18:30 18:40 Temperature Pulse Rate 114 H 116 H 118 H Pulse Rate [ From Monitor] Respiratory 16 16 16 Rate Blood Pressure 114/68 125/82 125/82 O2 Sat by Pulse 100 100 Oximetry 06/30/19 06/30/19 06/30/19 18:50 19:00 19:10 Temperature Pulse Rate 119 H 120 H 120 H Pulse Rate [ From Monitor] Respiratory 16 16 16 Rate Blood Pressure 125/82 106/73 106/73 O2 Sat by Pulse 100 100 100 Oximetry 06/30/19 06/30/19 06/30/19 19:20 19:30 19:40 Temperature Pulse Rate 120 H 119 H 119 H Pulse Rate [ From Monitor] Respiratory 16 16 16 Rate Blood Pressure 106/73 95/70 95/70 O2 Sat by Pulse 100 100 100 Oximetry 06/30/19 06/30/19 06/30/19 19:47 19:50 20:00 Temperature 98.5 F Pulse Rate 115 H 118 H 116 H Pulse Rate [ 117 H From Monitor] Respiratory 14 16 Rate Blood Pressure 95/70 95/70 116/83 O2 Sat by Pulse 99 100 100 Oximetry 06/30/19 06/30/19 06/30/19 20:10 20:20 20:30 Temperature Pulse Rate 118 H 120 H 121 H Pulse Rate [ From Monitor] Respiratory 16 16 16 Rate Blood Pressure 116/83 116/83 107/76 O2 Sat by Pulse 100 100 100 Oximetry 06/30/19 06/30/19 06/30/19 20:40 20:50 21:00 Temperature Pulse Rate 117 H 120 H 121 H Pulse Rate [ From Monitor] Respiratory 16 16 16 Rate Blood Pressure 107/76 107/76 88/64 O2 Sat by Pulse 100 100 100 Oximetry 06/30/19 06/30/19 06/30/19 21:10 21:20 21:30 Temperature Pulse Rate 120 H 114 H 108 H Pulse Rate [ From Monitor] Respiratory 16 16 16 Rate Blood Pressure 88/64 88/64 108/75 O2 Sat by Pulse 100 100 100 Oximetry 06/30/19 06/30/19 06/30/19 21:40 21:50 22:00 Temperature Pulse Rate 113 H 117 H 117 H Pulse Rate [ From Monitor] Respiratory 16 16 16 Rate Blood Pressure 108/75 108/75 117/84 O2 Sat by Pulse 100 100 100 Oximetry 06/30/19 06/30/19 06/30/19 22:10 22:20 22:30 Temperature Pulse Rate 115 H 115 H 114 H Pulse Rate [ From Monitor] Respiratory 16 16 16 Rate Blood Pressure 108/75 108/75 109/73 O2 Sat by Pulse 100 100 100 Oximetry 06/30/19 06/30/19 06/30/19 22:34 22:40 22:50 Temperature Pulse Rate 113 H 109 H 109 H Pulse Rate [ From Monitor] Respiratory 16 16 16 Rate Blood Pressure 117/84 117/84 117/84 O2 Sat by Pulse 100 100 100 Oximetry 06/30/19 06/30/19 06/30/19 23:00 23:10 23:20 Temperature Pulse Rate 109 H 110 H 106 H Pulse Rate [ From Monitor] Respiratory 16 16 16 Rate Blood Pressure 117/77 109/73 109/73 O2 Sat by Pulse 100 100 100 Oximetry 06/30/19 06/30/19 06/30/19 23:30 23:40 23:50 Temperature 98.1 F Pulse Rate 108 H 107 H 108 H Pulse Rate [ From Monitor] Respiratory 16 16 16 Rate Blood Pressure 130/92 130/92 130/92 O2 Sat by Pulse 100 100 100 Oximetry 07/01/19 07/01/19 07/01/19 00:00 00:05 00:10 Temperature Pulse Rate 108 H 108 H 109 H Pulse Rate [ 112 H From Monitor] Respiratory 16 17 Rate Blood Pressure 130/91 130/92 130/91 O2 Sat by Pulse 100 100 100 Oximetry 07/01/19 07/01/19 07/01/19 00:20 00:30 00:40 Temperature Pulse Rate 109 H 112 H 113 H Pulse Rate [ From Monitor] Respiratory 16 16 16 Rate Blood Pressure 130/91 138/92 130/91 O2 Sat by Pulse 100 100 100 Oximetry 07/01/19 07/01/19 07/01/19 00:50 01:00 01:10 Temperature Pulse Rate 124 H 123 H 113 H Pulse Rate [ From Monitor] Respiratory 15 15 16 Rate Blood Pressure 130/91 135/87 135/87 O2 Sat by Pulse 100 100 100 Oximetry 07/01/19 07/01/19 07/01/19 01:20 01:30 01:40 Temperature Pulse Rate 113 H 116 H 119 H Pulse Rate [ From Monitor] Respiratory 16 19 18 Rate Blood Pressure 135/87 140/92 135/87 O2 Sat by Pulse 100 100 100 Oximetry 07/01/19 07/01/19 07/01/19 01:50 02:00 02:10 Temperature Pulse Rate 121 H 112 H 114 H Pulse Rate [ From Monitor] Respiratory 16 16 18 Rate Blood Pressure 135/87 135/93 135/93 O2 Sat by Pulse 100 100 100 Oximetry 07/01/19 07/01/19 07/01/19 02:20 02:30 02:40 Temperature Pulse Rate 114 H 114 H 113 H Pulse Rate [ From Monitor] Respiratory 18 17 16 Rate Blood Pressure 135/93 143/88 143/88 O2 Sat by Pulse 100 100 100 Oximetry 07/01/19 07/01/19 07/01/19 02:50 03:00 03:10 Temperature Pulse Rate 113 H 114 H 115 H Pulse Rate [ From Monitor] Respiratory 16 16 16 Rate Blood Pressure 143/88 142/94 142/94 O2 Sat by Pulse 100 100 100 Oximetry 07/01/19 07/01/19 07/01/19 03:20 03:30 03:40 Temperature Pulse Rate 113 H 115 H 113 H Pulse Rate [ From Monitor] Respiratory 16 17 16 Rate Blood Pressure 142/94 133/89 133/89 O2 Sat by Pulse 100 100 100 Oximetry 07/01/19 07/01/19 07/01/19 03:50 03:52 04:00 Temperature 98.8 F Pulse Rate 115 H 116 H 116 H Pulse Rate [ 113 H From Monitor] Respiratory 16 14 Rate Blood Pressure 133/89 133/89 135/90 O2 Sat by Pulse 100 100 100 Oximetry 07/01/19 07/01/19 07/01/19 04:10 04:20 04:30 Temperature Pulse Rate 114 H 113 H 114 H Pulse Rate [ From Monitor] Respiratory 16 16 16 Rate Blood Pressure 135/90 135/90 129/90 O2 Sat by Pulse 100 100 100 Oximetry General appearance: Present: no acute distress, well-nourished - EENT Eyes: PERRL, EOM intact ENT: hearing intact, clear oral mucosa Ears: bilateral: normal - Neck Neck: supple, normal ROM - Respiratory Respiratory effort: normal Respiratory: bilateral: CTA - Breasts Breasts: normal - Cardiovascular Heart rate: 78 Rhythm: regular Heart Sounds: Present: S1 & S2. Absent: gallop, rub Extremities: pulses intact, No edema, normal color, Full ROM - Gastrointestinal General gastrointestinal: Present: soft, non-tender, non-distended, normal bowel sounds - Genitourinary Female genitourinary: normal - Integumentary Integumentary: clear, warm, dry - Musculoskeletal Musculoskeletal: strength equal bilaterally, other (Intubated) - Neurologic Neurologic: moves all extremities - Psychiatric Psychiatric: memory intact, cooperative - Allied health notes Allied health notes reviewed: nursing - Labs CBC & Chem 7: 06/30/19 08:13 06/30/19 08:13 Labs: Abnormal lab results 06/30/19 06/30/19 07/01/19 Range/Units 08:13 08:13 04:00 WBC 12.2 H (4.5-11.0) K/mm3 MCH 27 L (28-32) pg RDW 15.4 H (13.2-15.2) % Carbon % (Auto) 11.4 H (0.0-7.3) % Carbon # 1.4 H (0.0-0.8) K/mm3 Seg Neutrophils # 8.2 H (1.8-7.7) K/mm3 ABG pH 7.477 H (7.350-7.450) pH Units ABG pO2 148.1 H (80.0-90.0) mm Hg Sodium 136 L (137-145) mmol/L Carbon Dioxide 19 L (22-30) mmol/L Creatinine 0.3 L (0.7-1.2) mg/dL Alkaline Phosphatase 162 H (35-129) units/L Albumin 3.3 L (3.9-5) g/dL
[2019-07-01] MEDS: levETIRAcetam 1,000 MG in DEXTROSE 5% IN WATER 100 ML IV SCH (09:21)
[2019-07-01] MEDS: HEPARIN 5,000 UNIT/1 ML VIAL SUB-Q SCH ×2 (09:21→21:59)
[2019-07-01] MEDS: ASPIRIN EC 81 MG TAB PO SCH (09:22)
[2019-07-01] MEDS: METOPROLOL TARTRATE 25 MG TAB PO SCH ×2 (09:22→21:59)
[2019-07-01] MEDS: FAMOTIDINE 20 MG/2 ML INJ IV SCH ×2 (09:23→21:59)
[2019-07-01] MEDS: POTASSIUM CHLORIDE ER 20 MEQ TAB PO SCH (09:23)
[2019-07-01] MEDS: hydroCHLOROthiazide 25 MG TAB PO SCH (09:23)
[2019-07-01] MEDS: VENLAFAXINE XR 75 MG CAP PO SCH (10:19)
[2019-07-01] MEDS: D5W/0.9% NACL 1,000 ML IV SCH (10:21)
--- NOTE | 2019-07-01 11:36 | Progress Note ---
Assessment and Plan 63 y/o female with status epilepticus 1. Obtain UDS 2. Obtain EEG 3. Hold extubation 4. Continue anti epileptic therapy for now. CCT 31 minutes. Subjective Date of service: 07/01/19 Principal diagnosis: Status epilepticus Interval history: Ativan now off since yesterday afternoon and patient still has not awakened. No family at bedside. Not responsive to sternal rub either. Objective Vital Signs - 12hr 06/30/19 06/30/19 07/01/19 23:40 23:50 00:00 Temperature 98.1 F Pulse Rate 107 H 108 H 108 H Pulse Rate [ 112 H From Monitor] Respiratory 16 16 16 Rate Blood Pressure 130/92 130/92 130/91 O2 Sat by Pulse 100 100 100 Oximetry 07/01/19 07/01/19 07/01/19 00:05 00:10 00:20 Temperature Pulse Rate 108 H 109 H 109 H Pulse Rate [ From Monitor] Respiratory 17 16 Rate Blood Pressure 130/92 130/91 130/91 O2 Sat by Pulse 100 100 100 Oximetry 07/01/19 07/01/19 07/01/19 00:30 00:40 00:50 Temperature Pulse Rate 112 H 113 H 124 H Pulse Rate [ From Monitor] Respiratory 16 16 15 Rate Blood Pressure 138/92 130/91 130/91 O2 Sat by Pulse 100 100 100 Oximetry 07/01/19 07/01/19 07/01/19 01:00 01:10 01:20 Temperature Pulse Rate 123 H 113 H 113 H Pulse Rate [ From Monitor] Respiratory 15 16 16 Rate Blood Pressure 135/87 135/87 135/87 O2 Sat by Pulse 100 100 100 Oximetry 07/01/19 07/01/19 07/01/19 01:30 01:40 01:50 Temperature Pulse Rate 116 H 119 H 121 H Pulse Rate [ From Monitor] Respiratory 19 18 16 Rate Blood Pressure 140/92 135/87 135/87 O2 Sat by Pulse 100 100 100 Oximetry 07/01/19 07/01/19 07/01/19 02:00 02:10 02:20 Temperature Pulse Rate 112 H 114 H 114 H Pulse Rate [ From Monitor] Respiratory 16 18 18 Rate Blood Pressure 135/93 135/93 135/93 O2 Sat by Pulse 100 100 100 Oximetry 07/01/19 07/01/19 07/01/19 02:30 02:40 02:50 Temperature Pulse Rate 114 H 113 H 113 H Pulse Rate [ From Monitor] Respiratory 17 16 16 Rate Blood Pressure 143/88 143/88 143/88 O2 Sat by Pulse 100 100 100 Oximetry 07/01/19 07/01/19 07/01/19 03:00 03:10 03:20 Temperature Pulse Rate 114 H 115 H 113 H Pulse Rate [ From Monitor] Respiratory 16 16 16 Rate Blood Pressure 142/94 142/94 142/94 O2 Sat by Pulse 100 100 100 Oximetry 07/01/19 07/01/19 07/01/19 03:30 03:40 03:50 Temperature 98.8 F Pulse Rate 115 H 113 H 115 H Pulse Rate [ From Monitor] Respiratory 17 16 16 Rate Blood Pressure 133/89 133/89 133/89 O2 Sat by Pulse 100 100 100 Oximetry 07/01/19 07/01/19 07/01/19 03:52 04:00 04:10 Temperature Pulse Rate 116 H 116 H 114 H Pulse Rate [ 113 H From Monitor] Respiratory 14 16 Rate Blood Pressure 133/89 135/90 135/90 O2 Sat by Pulse 100 100 100 Oximetry 07/01/19 07/01/19 07/01/19 04:20 04:30 04:40 Temperature Pulse Rate 113 H 114 H 115 H Pulse Rate [ From Monitor] Respiratory 16 16 13 Rate Blood Pressure 135/90 129/90 129/90 O2 Sat by Pulse 100 100 100 Oximetry 07/01/19 07/01/19 07/01/19 04:50 05:00 05:10 Temperature Pulse Rate 117 H 112 H 112 H Pulse Rate [ From Monitor] Respiratory 16 16 16 Rate Blood Pressure 129/90 143/92 143/92 O2 Sat by Pulse 100 100 100 Oximetry 07/01/19 07/01/19 07/01/19 05:20 05:30 05:40 Temperature Pulse Rate 113 H 114 H 114 H Pulse Rate [ From Monitor] Respiratory 16 16 16 Rate Blood Pressure 143/92 132/94 132/94 O2 Sat by Pulse 100 100 100 Oximetry 07/01/19 07/01/19 07/01/19 05:50 06:00 06:10 Temperature Pulse Rate 113 H 116 H 121 H Pulse Rate [ From Monitor] Respiratory 16 16 17 Rate Blood Pressure 143/92 146/91 146/91 O2 Sat by Pulse 100 100 100 Oximetry 0207/01/19 07/01/19 06:20 06:30 06:40 Temperature Pulse Rate 116 H 114 H 114 H Pulse Rate [ From Monitor] Respiratory 16 16 16 Rate Blood Pressure 146/91 139/89 139/89 O2 Sat by Pulse 100 100 100 Oximetry 07/01/19 07/01/19 07/01/19 06:50 07:00 07:10 Temperature Pulse Rate 118 H 116 H 117 H Pulse Rate [ From Monitor] Respiratory 17 16 16 Rate Blood Pressure 139/89 131/95 131/95 O2 Sat by Pulse 100 100 100 Oximetry 07/01/19 07/01/19 07/01/19 07:20 07:30 07:40 Temperature Pulse Rate 115 H 116 H 116 H Pulse Rate [ From Monitor] Respiratory 16 18 16 Rate Blood Pressure 131/95 137/92 137/92 O2 Sat by Pulse 100 100 100 Oximetry 07/01/19 07/01/19 08:00 09:22 Temperature Pulse Rate 116 H 120 H Pulse Rate [ From Monitor] Respiratory Rate Blood Pressure 137/92 145/93 O2 Sat by Pulse 100 Oximetry CBC and BMP: 06/30/19 08:13 06/30/19 08:13 ABG, PT/INR, D-dimer: ABG ABG pH 7.477 pH Units (7.350-7.450) H 07/01/19 04:00 ABG pCO2 34.6 mm Hg 07/01/19 04:00 ABG pO2 148.1 mm Hg (80.0-90.0) H 07/01/19 04:00 ABG O2 Saturation 98.9 % (95.0-99.0) 07/01/19 04:00 PT/INR, D-dimer PT 13.4 Sec. (12.2-14.9) 06/29/19 08:39 INR 1.01 (0.87-1.13) 06/29/19 08:39 Abnormal lab findings: Abnormal Labs 06/29/19 06/29/19 06/29/19 08:39 08:39 10:47 WBC MCH RDW 15.4 H [place] % (Auto) [place] # Seg Neutrophils # ABG pH ABG pO2 257.4 H ABG HCO3 26.5 H ABG O2 Saturation 99.4 H ABG Base Excess ABG Hemoglobin 11.4 L Sodium Potassium 3.5 L Carbon Dioxide Creatinine 0.4 L Glucose 105 H Alkaline Phosphatase 154 H Albumin 3.6 L Urine WBC (Auto) U Epithel Cells (Auto) 06/29/19 06/30/19 06/30/19 14:03 04:35 08:13 WBC 12.2 H MCH 27 L RDW 15.4 H [place] % (Auto) 11.4 H [place] # 1.4 H Seg Neutrophils # 8.2 H ABG pH 7.531 H ABG pO2 148.8 H ABG HCO3 26.1 H ABG O2 Saturation ABG Base Excess 4.0 H ABG Hemoglobin 11.8 L Sodium Potassium Carbon Dioxide Creatinine Glucose Alkaline Phosphatase Albumin Urine WBC (Auto) 11.0 H U Epithel Cells (Auto) 34.0 H 06/30/19 07/01/19 08:13 04:00 WBC MCH RDW [place] % (Auto) [place] # Seg Neutrophils # ABG pH 7.477 H ABG pO2 148.1 H ABG HCO3 ABG O2 Saturation ABG Base Excess ABG Hemoglobin Sodium 136 L Potassium Carbon Dioxide 19 L Creatinine 0.3 L Glucose Alkaline Phosphatase 162 H Albumin 3.3 L Urine WBC (Auto) U Epithel Cells (Auto)
[2019-07-01 12:07] LABS: Amphetamine Screen,Urine PRESUMPTIVE NEGATIVE; Benzodiazepines Screen,Urine PRESUMPTIVE NEGATIVE; Cannabinoid Screen,Urine PRESUMPTIVE NEGATIVE; Cocaine Screen,Urine PRESUMPTIVE NEGATIVE; Methadone Screen,Urine PRESUMPTIVE NEGATIVE; Opiate Screen,Urine PRESUMPTIVE NEGATIVE
[2019-07-01] MEDS ORDERED: cefTRIAXone/NS 1 GM/50 ML 1 GM/50 ML BAG IV SCH (13:00)
[2019-07-01] MEDS ORDERED: levETIRAcetam 500 MG in DEXTROSE 5% IN WATER 100 ML IV ONE (13:00)
--- NOTE | 2019-07-01 14:31 | Consultation ---
History of Present Illness Consult date: 07/01/19 Reason for Consult: Seizures Chief complaint: Seizures History of present illness: Patient is a 63-year-old woman with a history of seizures, MS, hypertension, hyperlipidemia. She is an assisted living facility resident. She presented on June 29 with seizures. They reportedly were unable to be controlled in the emergency room, therefore the patient was intubated for airway protection, and was started on Ativan drip. Patient was found to have a right middle lobe possible infiltrate on chest x-ray. She reportedly ran out of [employer] at home. Past History Past Medical History: other (history of seizures, MS, hypertension, hyperlipidemia.) Social history: Lives alone (Assisted living facility) Family history: no significant family history Medications and Allergies Allergies Allergy/AdvReac Type Severity Reaction Status Date / Time No Known Allergies Allergy Unverified 03/29/19 20:00 Home Medications Medication Instructions Recorded Confirmed Last Taken Type Acetaminophen [Acetaminophen TAB] 1,000 mg PO Q8HR PRN 03/30/19 06/29/19 Unknown History Aspirin EC [Halfprin EC] 81 mg PO QDAY 03/30/19 06/29/19 Unknown History Atorvastatin [Lipitor] 40 mg PO QHS 03/30/19 06/29/19 Unknown History Latanoprost 0.005% 1 drop OP QPM 03/30/19 06/29/19 Unknown History Menthol/Camphor [Dermasarra 222 ml TP PRN PRN 03/30/19 06/29/19 Unknown History Anti-Itch Lotion] Sulindac 200 mg PO BID PRN 03/30/19 06/29/19 Unknown History Venlafaxine ER 150 mg PO DAILY 03/30/19 06/29/19 Unknown History Metoprolol [Lopressor TAB] 12.5 mg PO BID #30 tablet 04/03/19 06/29/19 Unknown Rx levETIRAcetam [Keppra TAB] 500 mg PO BID #60 tablet 04/03/19 06/29/19 Unknown Rx Potassium Chloride [K-Dur] 40 meq PO QDAY 06/29/19 06/29/19 Unknown History Tizanidine HCl [Tizanidine 2mg tab] 4 mg PO BID PRN 06/29/19 06/29/19 Unknown History hydroCHLOROthiazide [HCTZ] 25 mg PO QDAY 06/29/19 06/29/19 Unknown History traMADoL [Ultram] 50 mg PO Q8H PRN 06/29/19 06/29/19 Unknown History Active Meds: Active Medications Acetaminophen (Tylenol) 650 mg PO Q4H PRN PRN Reason: Pain MILD(1-3)/Fever >100.5/ALEGRIA Lipase/Protease/Amylase (Pancreaze Dr 10,500 Unit) 1 each FEEDTUBE PRN PRN PRN Reason: For Clogged Feeding Tube Aspirin (Halfprin Ec) 81 mg PO QDAY [facility] Last Admin: 07/01/19 09:22 Dose: 81 mg Documented by: Atorvastatin Calcium (Lipitor) 40 mg PO QHS JANES Famotidine (Pepcid) 20 mg IV BID [facility] Last Admin: 07/01/19 09:23 Dose: 20 mg Documented by: Heparin Sodium (Porcine) (Heparin) 5,000 unit SUB-Q Q12HR JANES Last Admin: 07/01/19 09:21 Dose: 5,000 unit Documented by: Hydrochlorothiazide (Hctz) 25 mg PO QDAY [facility] Last Admin: 07/01/19 09:23 Dose: 25 mg Documented by: Hydrophilic Ointment (Vaseline Lip Therapy) 1 applic TP Q2HR PRN PRN Reason: Dry Lips Lorazepam 100 mg/ Sodium Chloride/ Miscellaneous Information 100 mls @ 1 mls/hr IV TITR JANES; Protocol Last Titration: 06/30/19 11:00 Dose: 0 mg/hr, 0 mls/hr Documented by: Levetiracetam 1,000 mg/ (Dextrose) 110 mls @ 400 mls/hr IV Q12HR [facility] Last Infusion: 07/01/19 10:00 Dose: Infused Documented by: Dextrose (D5w) 1,000 mls @ 75 mls/hr IV DIRECT JANES Dextrose/Sodium Chloride (D5ns) 1,000 mls @ 75 mls/hr IV DIRECT JANES Last Admin: 07/01/19 10:21 Dose: 75 mls/hr Documented by: Ceftriaxone Sodium (Rocephin/Ns 1 Gm/50 Ml) 1 gm in 50 mls @ 100 mls/hr IV Q24HR JANES; Protocol Levetiracetam 1,500 mg/ (Dextrose) 115 mls @ 400 mls/hr IV Q12HR [facility] Latanoprost (Latanoprost 0.005%) 1 drops OU QPM [facility] Lorazepam (Ativan) 2 mg IV Q1H PRN PRN Reason: Seizures Metoprolol Tartrate (Metoprolol) 12.5 mg PO BID [facility] Last Admin: 07/01/19 09:22 Dose: 12.5 mg Documented by: Multi-Ingred Cream/Lotion/Oil/Oint (Artificial Tears Ophth Oint) 1 applic OU Q4HR PRN PRN Reason: Dry Eye(s) Ondansetron HCl (Zofran) 4 mg IV Q8H PRN PRN Reason: Nausea And Vomiting Potassium Chloride (K-Dur) 40 meq PO QDAY [facility] Last Admin: 07/01/19 09:23 Dose: 40 meq Documented by: Simple Syrup (Simple Syrup) 15 ml FEEDTUBE PRN PRN PRN Reason: Hypoglycemia Simple Syrup (Simple Syrup) 30 ml FEEDTUBE PRN PRN PRN Reason: Hypoglycemia Sodium Bicarbonate (Sodium Bicarbonate) 325 mg FEEDTUBE PRN PRN PRN Reason: For Clogged Feeding Tube Sodium Chloride (Sodium Chloride Flush Syringe 10 Ml) 10 ml IV BID [facility] Last Admin: 07/01/19 09:24 Dose: 10 ml Documented by: Sodium Chloride (Sodium Chloride Flush Syringe 10 Ml) 10 ml IV PRN PRN PRN Reason: LINE FLUSH Sodium Chloride (Sodium Chloride Flush Syringe 10 Ml) 10 ml IV PRN PRN PRN Reason: LINE FLUSH Venlafaxine HCl (Effexor Xr) 150 mg PO DAILY [facility] Last Admin: 07/01/19 10:19 Dose: 150 mg Documented by: Review of Systems ROS unobtainable: due to endotracheal tube, due to mental status Physical Examination - Vital Signs Vital Signs: Vital Signs BP 134/81 06/29/19 08:26 - Physical Exam Narrative exam: Patient is comatose, intubated. PERRL, intact corneal/cough reflexes. W/d to pain in all extremities. - Constitutional General appearance: acutely ill - EENT EENT: Present: ATNC, PERRL, mucous membranes moist - Respiratory Respiratory: Present: decreased breath sounds - Cardiovascular Cardiovascular: Present: regular rate, normal S1, normal S2 Extremities: Present: no clubbing, cyanosis, no inflammation - Gastrointestinal Gastrointestinal: Present: normoactive bowel sounds, soft, non-tender - Integumentary Integumentary: Present: normal Results - Laboratory Findings CBC and BMP: 06/30/19 08:13 06/30/19 08:13 Abnormal Lab Findings: Abnormal Labs 06/29/19 06/29/19 06/29/19 08:39 08:39 10:47 WBC MCH RDW 15.4 H Tucker % (Auto) Tucker # Seg Neutrophils # ABG pH ABG pO2 257.4 H ABG HCO3 26.5 H ABG O2 Saturation 99.4 H ABG Base Excess ABG Hemoglobin 11.4 L Sodium Potassium 3.5 L Carbon Dioxide Creatinine 0.4 L Glucose 105 H Alkaline Phosphatase 154 H Albumin 3.6 L Urine WBC (Auto) U Epithel Cells (Auto) 06/29/19 06/30/19 06/30/19 14:03 04:35 08:13 WBC 12.2 H MCH 27 L RDW 15.4 H Tucker % (Auto) 11.4 H Tucker # 1.4 H Seg Neutrophils # 8.2 H ABG pH 7.531 H ABG pO2 148.8 H ABG HCO3 26.1 H ABG O2 Saturation ABG Base Excess 4.0 H ABG Hemoglobin 11.8 L Sodium Potassium Carbon Dioxide Creatinine Glucose Alkaline Phosphatase Albumin Urine WBC (Auto) 11.0 H U Epithel Cells (Auto) 34.0 H 06/30/19 07/01/19 08:13 04:00 WBC MCH RDW Tucker % (Auto) Tucker # Seg Neutrophils # ABG pH 7.477 H ABG pO2 148.1 H ABG HCO3 ABG O2 Saturation ABG Base Excess ABG Hemoglobin Sodium 136 L Potassium Carbon Dioxide 19 L Creatinine 0.3 L Glucose Alkaline Phosphatase 162 H Albumin 3.3 L Urine WBC (Auto) U Epithel Cells (Auto) Assessment and Plan Patient is a 63-year-old woman with a history of seizures, MS, hypertension, hyperlipidemia, who presents with seizures. According the patient's clinical findings, it is likely that she has had seizures. This may be due to lowered seizure threshold in the setting of possible UTI and pneumonia. Plan: 1. Seizures: - CT head: no acute abnormality - Check EEG -Increase Keppra dose to 1500 mg twice a day. -If patient is found to have frequent seizures, will require transfer to a facility where continuous EEG monitoring is available. -Continue to work-up and manage infectious and metabolic abnormalities per primary team. -If patient is found to have a seizure lasting more than 2 minutes, recommend Ativan 1 mg IV stat. If seizure does not resolve within 2 minutes after first dose, can repeat x1. Please call primary team and neurology stat if patient has a seizure. -We will continue to monitor patient. Thank you for allowing me to take part in the care of this patient. Chago Gibbs MD Neurology
--- NOTE | 2019-07-01 15:41 | Electroencephalogram Report ---
Electroencephalogram EEG Date of exam: 07/01/19 History: Patient is a 63-year-old woman with a history of seizures, MS, hypertension, hyperlipidemia, who presents with seizures. Description: Impression: 1. Generalized slowing 2. No seizures noted during recording. 3. Patient was noted to have mild right facial twitching during the recording, however this did not correlate with any electrographic seizures or epileptiform activity. Description: At the onset of this recording, the patient is lying supine. The background we note a 4-5 Hz delta and theta activity that has an amplitude ranging 20-30 V. There are no asymmetries in amplitude or frequency between hemispheres. Patient was noted to have mild right facial twitching during the recording, however this did not correlate with any electrographic seizures or epileptiform activity. Intermittent photic stimulation was not performed. Hyperventilation was not performed. Significant lead and movement artifact noted during EEG recording. Interpretation: This routine EEG performed during sleep is abnormal secondary to above findings and is consistent with bihemispheric dysfunction and encephalopathy. The above described findings of diffuse slowing is etiologically nonspecific, and similar findings have been reported in cases of toxic, metabolic, hypoxic ischemic, infectious, medication, sleep deprivation, dementia, postictal state, and other causes of diffuse and multifocal encephalopathy.
[2019-07-01] MEDS: LATANOPROST 0.005% OPHTH SOLN 2.5 ML OU SCH (18:00)
--- NOTE | 2019-07-01 19:47 | Progress Note ---
Assessment and Plan Assessment and plan: According to documentation on admission this is a 63-year-old female with a history of status epilepticus presenting to the ED with recurrent seizures and per history was treated here in March requiring endotracheal intubation.in the ED she was given Ativan and 2 g of Keppra. This was intermittently successful in stopping her seizures. Therefore we proceeded to RSI at elective intubation. The son was informed of the indications and risks of the procedure. He was in agreement. On admission is documented The patient is able to recognize family members at her baseline. She is contracted. She lives in an assisted living. However she is able to assist with her ADLs. Review of her previous admission at that time showed that she was treated for status epilepticus which resolved and was discharged on oral Keppra also at the same admission patient was intubated and subsequently extubated was also treated for urinary tract infection and severe protein calorie malnutrition with severe hypokalemia. Home medication of hydrochlorothiazide at that time was discontinued. * Patient currently is intubated continues on IV Keppra neurology did see the patient repeat EEG was performed but no active seizures was noted unfortunately patient is currently not waking up despite being off Ativan. * She continues to require mechanical ventilation due to mental status. * Keppra increased to 1500 mg twice daily by neurology recommends Ativan IV 1 mg if seizure lasting more than 2 minutes * Chest x-ray is unremarkable * Poor prognosis Status epilepticus Acute respiratory failure secondary to status epilepticus Hypertension Hyperlipidemia Glaucoma [facility] resident The high probability of a clinically significant, sudden or life threatening deterioration of the [neurology] system(s) required my full and direct attention, intervention and personal management. The aggregate critical care time was [35] minutes. This time is in addition to time spent performing r eported procedures but includes the following: [x] Data Review and interpretation [x] Patient assessment and monitoring of vital signs [x] Documentation [x] Medication orders and management History Interval history: Patient seen and examined remains unresponsive despite being off sedatives. Continues on intubation. Hospitalist Physical - Physical exam Narrative exam: VITAL SIGNS: Reviewed. GENERAL: The patient appears cachectic, critically ill-appearing currently intubated vital signs as documented. HEAD: No signs of head trauma. EYES: Pupils are equal. Extraocular motions intact. EARS: Unable to assess MOUTH: ET tube in place . NECK: No adenopathy, no JVD. CHEST: Chest with bronchovesicular breath sounds bilaterally. No wheezes, rales, or rhonchi. CARDIAC: Regular rate and rhythm. S1 and S2, without murmurs, gallops, or rubs. VASCULAR: No Edema. Peripheral pulses normal and equal in all extremities. ABDOMEN: Soft, non tender and non distended. No rebound or guarding, and no masses palpated. Bowel Sounds normal. MUSCULOSKELETAL: Good range of motion of all major joints. Extremities without clubbing, cyanosis or edema. NEUROLOGIC EXAM: Unresponsive. Withdraws to pain. PSYCHIATRIC: Unable to assess SKIN: detial exam as documented in skin assessment - Constitutional Vitals: Temp Pulse Resp BP Pulse Ox 98.5 F 105 H 16 117/83 100 07/01/19 16:00 07/01/19 19:10 07/01/19 19:10 07/01/19 19:10 07/01/19 19:10 General appearance: Present: no acute distress, well-nourished Results - Labs CBC & Chem 7: 07/02/19 04:14 07/02/19 04:14 Labs: Laboratory Last Values WBC 12.2 K/mm3 (4.5-11.0) H 06/30/19 08:13 RBC 4.68 M/mm3 (3.65-5.03) 06/30/19 08:13 Hgb 12.8 gm/dl (10.1-14.3) 06/30/19 08:13 Hct 38.4 % (30.3-42.9) 06/30/19 08:13 MCV 82 fl (79-97) 06/30/19 08:13 MCH 27 pg (28-32) L 06/30/19 08:13 MCHC 33 % (30-34) 06/30/19 08:13 RDW 15.4 % (13.2-15.2) H 06/30/19 08:13 Plt Count 270 K/mm3 (140-440) 06/30/19 08:13 Lymph % (Auto) 20.6 % (13.4-35.0) 06/30/19 08:13 [place] % (Auto) 11.4 % (0.0-7.3) H 06/30/19 08:13 Eos % (Auto) 0.3 % (0.0-4.3) 06/30/19 08:13 Baso % (Auto) 0.7 % (0.0-1.8) 06/30/19 08:13 Lymph # 2.5 K/mm3 (1.2-5.4) 06/30/19 08:13 [place] # 1.4 K/mm3 (0.0-0.8) H 06/30/19 08:13 Eos # 0.0 K/mm3 (0.0-0.4) 06/30/19 08:13 Baso # 0.1 K/mm3 (0.0-0.1) 06/30/19 08:13 Seg Neutrophils % 67.0 % (40.0-70.0) 06/30/19 08:13 Seg Neutrophils # 8.2 K/mm3 (1.8-7.7) H 06/30/19 08:13 PT 13.4 Sec. (12.2-14.9) 06/29/19 08:39 INR 1.01 (0.87-1.13) 06/29/19 08:39 APTT 27.7 Sec. (24.2-36.6) 06/29/19 08:39 ABG pH 7.477 pH Units (7.350-7.450) H 07/01/19 04:00 ABG pCO2 34.6 mm Hg 07/01/19 04:00 ABG pO2 148.1 mm Hg (80.0-90.0) H 07/01/19 04:00 ABG HCO3 25.0 mmol/L (20.0-26.0) 07/01/19 04:00 ABG O2 Saturation 98.9 % (95.0-99.0) 07/01/19 04:00 ABG O2 Content 16.7 (0.0-44) 07/01/19 04:00 ABG Base Excess 1.7 mmol/L (-2.0-3.0) 07/01/19 04:00 ABG Hemoglobin 12.0 gm/dl (12.0-16.0) 07/01/19 04:00 ABG Carboxyhemoglobin 1.1 % (0.0-5.0) 07/01/19 04:00 ABG Methemoglobin 0.7 % (0.0-1.5) 07/01/19 04:00 Oxyhemoglobin 97.1 % (95.0-99.0) 07/01/19 04:00 FiO2 30 % 07/01/19 04:00 Sodium 136 mmol/L (137-145) L 06/30/19 08:13 Potassium 3.6 mmol/L (3.6-5.0) 06/30/19 08:13 Chloride 98.8 mmol/L (98-107) 06/30/19 08:13 Carbon Dioxide 19 mmol/L (22-30) L 06/30/19 08:13 Anion Gap 22 mmol/L 06/30/19 08:13 BUN 8 mg/dL (7-17) 06/30/19 08:13 Creatinine 0.3 mg/dL (0.7-1.2) L 06/30/19 08:13 Estimated GFR > 60 ml/min 06/30/19 08:13 BUN/Creatinine Ratio 27 % 06/30/19 08:13 Glucose 84 mg/dL (65-100) 06/30/19 08:13 POC Glucose 91 (70-105) 06/30/19 16:46 Hemoglobin A1c 5.3 % (4-6) 06/29/19 16:09 Calcium 9.2 mg/dL (8.4-10.2) 06/30/19 08:13 Magnesium 2.00 mg/dL (1.7-2.3) 06/29/19 08:39 Total Bilirubin 0.60 mg/dL (0.1-1.2) 06/30/19 08:13 Direct Bilirubin < 0.2 mg/dL (0-0.2) 06/29/19 08:39 Indirect Bilirubin 0.1 mg/dL 06/29/19 08:39 AST 31 units/L (5-40) 06/30/19 08:13 ALT 14 units/L (7-56) 06/30/19 08:13 Alkaline Phosphatase 162 units/L (35-129) H 06/30/19 08:13 Total Creatine Kinase 132 units/L (30-135) 06/29/19 08:39 CK-MB (CK-2) 2.6 ng/mL (0.0-4.0) 06/29/19 08:39 CK-MB (CK-2) Rel Index 1.9 (0-4) 06/29/19 08:39 Troponin T < 0.010 ng/mL (0.00-0.029) 06/29/19 08:39 NT-Pro-B Natriuret Pep 193.4 pg/mL (0-900) 06/29/19 08:39 Total Protein 6.8 g/dL (6.3-8.2) 06/30/19 08:13 Albumin 3.3 g/dL (3.9-5) L 06/30/19 08:13 Albumin/Globulin Ratio 0.9 % 06/30/19 08:13 Urine Color Yellow (Yellow) 06/29/19 14:03 Urine Turbidity Cloudy (Clear) 06/29/19 14:03 Urine pH 7.0 (5.0-7.0) 06/29/19 14:03 Ur Specific [place] 1.015 (1.003-1.030) 06/29/19 14:03 Urine Protein <15 mg/dl mg/dL (Negative) 06/29/19 14:03 Urine Glucose (UA) Neg mg/dL (Negative) 06/29/19 14:03 Urine Ketones 20 mg/dL (Negative) 06/29/19 14:03 Urine Blood Neg (Negative) 06/29/19 14:03 Urine Nitrite Pos (Negative) 06/29/19 14:03 Urine Bilirubin Neg (Negative) 06/29/19 14:03 Urine Urobilinogen 4.0 mg/dL (<2.0) 06/29/19 14:03 Ur Leukocyte Esterase Tr (Negative) 06/29/19 14:03 Urine WBC (Auto) 11.0 /HPF (0.0-6.0) H 06/29/19 14:03 Urine RBC (Auto) 1.0 /HPF (0.0-6.0) 06/29/19 14:03 U Epithel Cells (Auto) 34.0 /HPF (0-13.0) H 06/29/19 14:03 Urine Bacteria (Auto) 3+ /HPF (Negative) 06/29/19 14:03 Urine Mucus 1+ /HPF 06/29/19 14:03 Urine Opiates Screen Presumptive negative 07/01/19 11:40 Urine Methadone Screen Presumptive negative 07/01/19 11:40 Ur Barbiturates Screen Presumptive negative 07/01/19 11:40 Ur Phencyclidine Scrn Presumptive negative 07/01/19 11:40 Ur Amphetamines Screen Presumptive negative 07/01/19 11:40 U Benzodiazepines Scrn Presumptive negative 07/01/19 11:40 Urine Cocaine Screen Presumptive negative 07/01/19 11:40 U Marijuana (THC) Screen Presumptive negative 07/01/19 11:40 Drugs of Abuse Note Disclamer 07/01/19 11:40 Active Medications - Current Medications Current Medications: Generic Name Dose Route Start Last Admin Trade Name Freq PRN Reason Stop Dose Admin Acetaminophen 650 mg 06/29/19 15:31 Tylenol PO Q4H PRN Pain MILD(1-3)/Fever >100.5/ALEGRIA Lipase/Protease/Amylase 1 each 06/29/19 15:31 Pancreaze 10,500 Unit FEEDTUBE PRN PRN For Clogged Feeding Tube Aspirin 81 mg 07/01/19 10:00 07/01/19 09:22 Halfprin Ec PO 81 mg QDAY JANES Administration Atorvastatin Calcium 40 mg 07/01/19 22:00 Lipitor PO QHS JANES Famotidine 20 mg 06/29/19 22:00 07/01/19 09:23 Pepcid IV 20 mg BID JANES Administration Heparin Sodium (Porcine) 5,000 unit 07/01/19 10:00 07/01/19 09:21 Heparin SUB-Q 5,000 unit Q12HR JANES Administration Hydrochlorothiazide 25 mg 07/01/19 10:00 07/01/19 09:23 Hctz PO 25 mg QDAY JANES Administration Hydrophilic Ointment 1 applic 06/29/19 09:47 Vaseline Lip Therapy TP Q2HR PRN Dry Lips Lorazepam 100 mg/ Sodium 100 mls @ 1 mls/hr 06/29/19 10:30 06/30/19 11:00 Chloride/ Miscellaneous IV 0 mg/hr Information TITR JANES 0 mls/hr Titration Protocol 1 MG/HR Dextrose 1,000 mls @ 75 mls/hr 06/29/19 19:00 D5w IV DIRECT JANES Dextrose/Sodium Chloride 1,000 mls @ 75 mls/hr 06/29/19 19:00 07/01/19 10:21 D5ns IV 75 mls/hr DIRECT JANES Administration Ceftriaxone Sodium 1 gm in 50 mls @ 100 mls/hr 07/01/19 13:00 07/01/19 13:30 Rocephin/Ns 1 Gm/50 Ml IV Infused Q24HR JANES Infusion Protocol Levetiracetam 1,500 mg/ 115 mls @ 400 mls/hr 07/01/19 22:00 Dextrose IV Q12HR JANES Latanoprost 1 drops 07/01/19 18:00 07/01/19 18:00 Latanoprost 0.005% OU 1 drops QPM JANES Administration Lorazepam 2 mg 06/29/19 22:50 Ativan IV Q1H PRN Seizures Metoprolol Tartrate 12.5 mg 07/01/19 10:00 07/01/19 09:22 Metoprolol PO 12.5 mg BID JANES Administration Multi-Ingred Cream/Lotion/Oil/Oint 1 applic 06/29/19 09:47 Artificial Tears Ophth Oint OU Q4HR PRN Dry Eye(s) Ondansetron HCl 4 mg 06/29/19 15:31 Zofran IV Q8H PRN Nausea And Vomiting Potassium Chloride 40 meq 07/01/19 10:00 07/01/19 09:23 K-Dur PO 40 meq QDAY JANES Administration Simple Syrup 15 ml 06/29/19 15:31 Simple Syrup FEEDTUBE PRN PRN Hypoglycemia Simple Syrup 30 ml 06/29/19 15:31 Simple Syrup FEEDTUBE PRN PRN Hypoglycemia Sodium Bicarbonate 325 mg 06/29/19 15:31 Sodium Bicarbonate FEEDTUBE PRN PRN For Clogged Feeding Tube Sodium Chloride 10 ml 06/29/19 22:00 07/01/19 09:24 Sodium Chloride Flush Syringe 10 Ml IV 10 ml BID JANES Administration Sodium Chloride 10 ml 06/29/19 15:31 Sodium Chloride Flush Syringe 10 Ml IV PRN PRN LINE FLUSH Sodium Chloride 10 ml 06/29/19 15:31 Sodium Chloride Flush Syringe 10 Ml IV PRN PRN LINE FLUSH Venlafaxine HCl 150 mg 07/01/19 10:00 07/01/19 10:19 Effexor Xr PO 150 mg DAILY JANES Administration Nutrition/Malnutrition Assess - Dietary Evaluation Nutrition/Malnutrition Findings: Nutrition Notes Start: 06/30/19 08:32 Freq: Status: Active Protocol: Document 06/30/19 08:32 FLORENCIA (Rec: 06/30/19 08:44 KH [id number]) Nutrition Notes Need for Assessment generated from: MD Order,cell tester Initial or Follow up Assessment Current Diagnosis Hypertension,Malnutrition Other Pertinent Diagnosis Multiple Sclerosis Current Diet No diet order Labs/Tests K: 3.5 Cr: 0.4 Pertinent Medications Reviewed Height 5 ft 6 in Weight 40.1 kg [place] Body Weight (kg) 59.09 BMI 14.2 Intake Prior to Admission Poor Weight Status Emaciated Subjective/Other Information MD consult for TF Burn Absent Trauma Absent Current % PO Negligible Minimum of two criteria Yes Body Fat Depletion Moderate depletion (severe) Muscle Mass Moderate Depletion (severe) #1 Nutrition Diagnosis Malnutrition Etiology Multiple sclerosis As Evidenced by Signs and Symptoms Severe muscle and fat tissue wasting Is patient on ventilator? Yes Is Patient Ambulatory and/or Out of Bed No REE-([facility]-confined to bed) 1178.772 Kcal/Kg value to use for calculation 37 Approximate Energy Requirements Using 1484 kcal/Kg Calculation Used for Recommendations Kcal/kg Additional Notes Pro needs: 48-80g/day (1.2-2 g /kg) Fluid needs: 1 ml/kcal Nutrition Intervention Change Diet Order: TF Nutrition Support: Osmolite 1.5 at 40ml/hr Provide water flush of 120 ml q4h Kcal 1,440 Protein (gm) 60 Fluid (mL) 732 Fiber (gm) 0 Goal #1 TF initiation/tolerance Anticipated Discharge Needs: Unknown at this time Follow-Up By: 07/02/19 Additional Comments F/u for TF initiation/ tolerance
[2019-07-01] MEDS: levETIRAcetam 1,500 MG in DEXTROSE 5% IN WATER 100 ML IV SCH (21:59)
--- NOTE | 2019-07-02 02:36 | XRay Report ---
CHEST 1 VIEW INDICATION / CLINICAL INFORMATION: follow up respiratory failure. COMPARISON: 07/01/2019 FINDINGS: Patient is rotated SUPPORT DEVICES: Endotracheal tube and nasogastric tube are again noted HEART / MEDIASTINUM: No significant abnormality. LUNGS / PLEURA: Given differences in positioning the lungs appear unchanged. No pneumothorax. ADDITIONAL FINDINGS: No significant additional findings. IMPRESSION: 1. No significant change. Signer Name: Ty Suazo MD Signed: 07/02/2019 2:31 AM Workstation Name: [email or web address]
[2019-07-02] MEDS: D5W/0.9% NACL 1,000 ML IV SCH (03:29)
[2019-07-02 04:49] LABS: Hematocrit 37.7 % (30.3-42.9); Hemoglobin 12.5 gm/dl (10.1-14.3); Mean Corpuscular HGB Conc 33 % (30-34); Mean Corpuscular Volume 81 fl (79-97); Platelet Count 303 K/mm3 (140-440); Red Blood Count 4.65 M/mm3 (3.65-5.03)
[2019-07-02 05:12] LABS: ABG Base Excess 4.5 mmol/L (-2.0-3.0); ABG HCO3 27.7 mmol/L (20.0-26.0); ABG Methemoglobin 0.7 % (0.0-1.5); ABG Oxygen Saturation 98.9 % (95.0-99.0); ABG PH 7.504 pH Units (7.350-7.450); ABG PO2 142.2 mm Hg (80.0-90.0)
[2019-07-02 05:15] LABS: Alanine Aminotransferase 16 units/L (7-56); Albumin 2.8 g/dL (3.9-5); BUN/Creatinine Ratio 30; Blood Urea Nitrogen 6 mg/dL (7-17); Calcium 8.7 mg/dL (8.4-10.2); Hemolysis Index 52
[2019-07-02] MEDS: FAMOTIDINE 20 MG/2 ML INJ IV SCH ×2 (09:31→21:23)
[2019-07-02] MEDS: VENLAFAXINE XR 75 MG CAP PO SCH (09:31)
[2019-07-02] MEDS: hydroCHLOROthiazide 25 MG TAB PO SCH (09:31)
[2019-07-02] MEDS: HEPARIN 5,000 UNIT/1 ML VIAL SUB-Q SCH ×2 (09:31→21:23)
[2019-07-02] MEDS: METOPROLOL TARTRATE 25 MG TAB PO SCH ×2 (09:34→21:23)
[2019-07-02] MEDS: POTASSIUM CHLORIDE ER 20 MEQ TAB PO SCH (09:34)
[2019-07-02] MEDS: ASPIRIN EC 81 MG TAB PO SCH (09:34)
[2019-07-02] MEDS: levETIRAcetam 1,500 MG in DEXTROSE 5% IN WATER 100 ML IV SCH ×2 (10:00→22:02)
--- NOTE | 2019-07-02 11:32 | Progress Note ---
Assessment and Plan 63 y/o female with status epilepticus 1. Follow up neuro recs from today. 2. Send repeat urine culture as first sample was inadequate 3. Hold extubation 4. Continue anti epileptic therapy for now. 5. per nursing, [facility] contacted us and stated that UTI's in the past have been from E. Coli resistant to rocephin. Abx therapy changed by IMS on yesterday and they have consulted ID. CCT 31 minutes. Subjective Date of service: 07/02/19 Principal diagnosis: Status epilepticus Interval history: No acute event. EEG did not show seizure activity. Still not awake. UDS was negative for benzo's in her system so ativan has been metabolized. Objective Vital Signs - 12hr 07/01/19 07/01/19 07/01/19 23:38 23:40 23:50 Temperature Pulse Rate 90 88 89 Pulse Rate [ From Monitor] Respiratory 17 16 16 Rate Blood Pressure 123/83 123/83 123/83 O2 Sat by Pulse 100 100 100 Oximetry 07/01/19 07/02/19 07/02/19 23:58 00:00 00:10 Temperature Pulse Rate 90 92 H 91 H Pulse Rate [ 106 H From Monitor] Respiratory 14 17 Rate Blood Pressure 123/83 124/80 123/83 O2 Sat by Pulse 100 100 100 Oximetry 07/02/19 07/02/19 07/02/19 00:20 00:30 00:40 Temperature Pulse Rate 94 H 91 H 93 H Pulse Rate [ From Monitor] Respiratory 15 15 16 Rate Blood Pressure 123/83 116/76 116/76 O2 Sat by Pulse 100 100 100 Oximetry 07/02/19 07/02/19 07/02/19 00:50 01:00 01:10 Temperature Pulse Rate 94 H 97 H 96 H Pulse Rate [ From Monitor] Respiratory 16 16 16 Rate Blood Pressure 116/76 122/80 122/80 O2 Sat by Pulse 100 100 100 Oximetry 07/02/19 07/02/19 07/02/19 01:20 01:30 01:40 Temperature Pulse Rate 98 H 98 H 96 H Pulse Rate [ From Monitor] Respiratory 15 17 16 Rate Blood Pressure 122/80 127/80 127/80 O2 Sat by Pulse 100 100 100 Oximetry 07/02/19 07/02/19 07/02/19 01:50 02:00 02:10 Temperature Pulse Rate 98 H 97 H 97 H Pulse Rate [ From Monitor] Respiratory 17 16 16 Rate Blood Pressure 122/80 128/83 128/83 O2 Sat by Pulse 100 100 100 Oximetry 07/02/19 07/02/19 07/02/19 02:20 02:30 02:40 Temperature Pulse Rate 97 H 97 H 98 H Pulse Rate [ From Monitor] Respiratory 16 16 16 Rate Blood Pressure 128/83 121/80 121/80 O2 Sat by Pulse 100 100 100 Oximetry 07/02/19 07/02/19 07/02/19 02:50 03:00 03:10 Temperature Pulse Rate 98 H 97 H 97 H Pulse Rate [ From Monitor] Respiratory 16 16 16 Rate Blood Pressure 121/80 124/83 124/83 O2 Sat by Pulse 100 100 100 Oximetry 07/02/19 07/02/19 07/02/19 03:20 03:30 03:40 Temperature Pulse Rate 99 H 98 H 97 H Pulse Rate [ From Monitor] Respiratory 16 16 16 Rate Blood Pressure 124/83 130/86 130/86 O2 Sat by Pulse 100 100 100 Oximetry 07/02/19 07/02/19 07/02/19 03:49 03:50 04:00 Temperature 98.8 F Pulse Rate 98 H 98 H Pulse Rate [ 106 H From Monitor] Respiratory 16 16 Rate Blood Pressure 130/86 129/85 O2 Sat by Pulse 100 100 Oximetry 07/02/19 07/02/19 07/02/19 04:10 04:20 04:30 Temperature Pulse Rate 99 H 98 H 99 H Pulse Rate [ From Monitor] Respiratory 16 16 16 Rate Blood Pressure 129/85 129/85 131/87 O2 Sat by Pulse 100 100 100 Oximetry 07/02/19 07/02/19 07/02/19 04:40 04:50 05:00 Temperature Pulse Rate 98 H 98 H 111 H Pulse Rate [ From Monitor] Respiratory 16 16 20 Rate Blood Pressure 131/87 131/87 127/96 O2 Sat by Pulse 100 100 100 Oximetry 07/02/19 07/02/19 07/02/19 05:10 05:20 05:30 Temperature Pulse Rate 98 H 99 H 99 H Pulse Rate [ From Monitor] Respiratory 16 16 16 Rate Blood Pressure 127/96 127/96 122/81 O2 Sat by Pulse 100 100 100 Oximetry 07/02/19 07/02/19 07/02/19 05:40 05:50 06:00 Temperature Pulse Rate 100 H 101 H 119 H Pulse Rate [ From Monitor] Respiratory 16 16 16 Rate Blood Pressure 122/81 122/81 132/87 O2 Sat by Pulse 100 100 99 Oximetry 07/02/19 07/02/19 07:51 09:26 Temperature 98.2 F Pulse Rate 108 H Pulse Rate [ From Monitor] Respiratory Rate Blood Pressure 144/88 O2 Sat by Pulse 100 Oximetry Gastrointestinal: normoactive bowel sounds, soft, non-tender Integumentary: normal CBC and BMP: 07/02/19 04:14 07/02/19 04:14 ABG, PT/INR, D-dimer: ABG ABG pH 7.504 pH Units (7.350-7.450) H 07/02/19 05:00 ABG pCO2 36.0 mm Hg 07/02/19 05:00 ABG pO2 142.2 mm Hg (80.0-90.0) H 07/02/19 05:00 ABG O2 Saturation 98.9 % (95.0-99.0) 07/02/19 05:00 PT/INR, D-dimer PT 13.4 Sec. (12.2-14.9) 06/29/19 08:39 INR 1.01 (0.87-1.13) 06/29/19 08:39 Abnormal lab findings: Abnormal Labs 06/29/19 06/29/19 06/29/19 08:39 08:39 10:47 WBC MCH RDW 15.4 H [place] % (Auto) [place] # Seg Neutrophils # ABG pH ABG pO2 257.4 H ABG HCO3 26.5 H ABG O2 Saturation 99.4 H ABG Base Excess ABG Hemoglobin 11.4 L Sodium Potassium 3.5 L Chloride Carbon Dioxide BUN Creatinine 0.4 L Glucose 105 H Alkaline Phosphatase 154 H Albumin 3.6 L Urine WBC (Auto) U Epithel Cells (Auto) 06/29/19 06/30/19 06/30/19 14:03 04:35 08:13 WBC 12.2 H MCH 27 L RDW 15.4 H [place] % (Auto) 11.4 H [place] # 1.4 H Seg Neutrophils # 8.2 H ABG pH 7.531 H ABG pO2 148.8 H ABG HCO3 26.1 H ABG O2 Saturation ABG Base Excess 4.0 H ABG Hemoglobin 11.8 L Sodium Potassium Chloride Carbon Dioxide BUN Creatinine Glucose Alkaline Phosphatase Albumin Urine WBC (Auto) 11.0 H U Epithel Cells (Auto) 34.0 H 06/30/19 07/01/19 07/02/19 08:13 04:00 04:14 WBC 11.4 H MCH 27 L RDW [place] % (Auto) [place] # Seg Neutrophils # ABG pH 7.477 H ABG pO2 148.1 H ABG HCO3 ABG O2 Saturation ABG Base Excess ABG Hemoglobin Sodium 136 L Potassium Chloride Carbon Dioxide 19 L BUN Creatinine 0.3 L Glucose Alkaline Phosphatase 162 H Albumin 3.3 L Urine WBC (Auto) U Epithel Cells (Auto) 07/02/19 07/02/19 04:14 05:00 WBC MCH RDW [place] % (Auto) [place] # Seg Neutrophils # ABG pH 7.504 H ABG pO2 142.2 H ABG HCO3 27.7 H ABG O2 Saturation ABG Base Excess 4.5 H ABG Hemoglobin 9.7 L Sodium 133 L Potassium 3.4 L Chloride 95.2 L Carbon Dioxide BUN 6 L Creatinine 0.2 L Glucose 105 H Alkaline Phosphatase 135 H Albumin 2.8 L Urine WBC (Auto) U Epithel Cells (Auto)
--- NOTE | 2019-07-02 13:49 | Electroencephalogram Report ---
Electroencephalogram EEG Date of exam: 07/02/19 History: Patient is a 63-year-old woman with a history of seizures, MS, hypertension, hyperlipidemia, who presents with seizures. Description: Impression: 1. Generalized slowing 2. Noted to have 2 electrographic seizure episodes, in the right frontal central region, lasting 30 to 60 seconds each. Patient was noted to have facial twitching during these episodes. Description: At the onset of this recording, the patient is lying supine. The background we note a 4-5 Hz delta and theta activity that has an amplitude ranging 20-30 V. There are no asymmetries in amplitude or frequency between hemispheres. Patient was noted to have facial twitching during the recording, which correlated with 2 electrographic seizures lasting 30 to 60 seconds each, in the right frontal central region. Intermittent photic stimulation was not performed. Hyperventilation was not performed. Significant lead and movement artifact noted during EEG recording. Interpretation: This routine EEG performed during sleep is abnormal secondary to above findings and is consistent with bihemispheric dysfunction and encephalopathy. The above described findings of diffuse slowing is etiologically nonspecific, and similar findings have been reported in cases of toxic, metabolic, hypoxic ischemic, infectious, medication, sleep deprivation, dementia, postictal state, and other causes of diffuse and multifocal encephalopathy. Electrographic seizures noted during the recording.
--- NOTE | 2019-07-02 13:53 | Progress Note ---
Assessment and Plan Patient is a 63-year-old woman with a history of seizures, MS, hypertension, hyperlipidemia, who presents with seizures. According the patient's clinical findings, it is likely that she has had seizures. This may be due to lowered seizure threshold in the setting of possible UTI and pneumonia. Plan: 1. Seizures: - CT head: no acute abnormality - EEG 07/01/2019: Generalized slowing, no electrographic seizures noted. - EEG 07/02/2019: Noted to have 2 electrographic seizures lasting 30 to 60 seconds, in the right frontal central region. Generalized slowing also noted. -Cont. Keppra 1500 mg twice a day. - Start patient on vimpat with loading dose of 200 mg, and continuous dose of 100 mg twice a day. -Given that patient is comatose and is noted to have seizures today on EEG, will require transfer to a facility where continuous EEG monitoring is available. Will contact outside facility to initiate transfer. -Continue to work-up and manage infectious and metabolic abnormalities per primary team. -If patient is found to have a seizure lasting more than 2 minutes, recommend Ativan 1 mg IV stat. If seizure does not resolve within 2 minutes after first dose, can repeat x1. Please call primary team and neurology stat if patient has a seizure. -We will continue to monitor patient. Thank you for allowing me to take part in the care of this patient. Chago Gibbs MD Neurology Subjective Date of service: 07/02/19 Principal diagnosis: Status epilepticus Interval history: Patient noted to have repeat facial twitching today. Objective - Exam Narrative Exam: Patient is comatose, intubated. PERRL, intact corneal/cough reflexes. W/d to pain in all extremities. - Vital Sign Vital Signs - 12hr 07/02/19 07/02/19 07/02/19 01:50 02:00 02:10 Temperature Pulse Rate 98 H 97 H 97 H Pulse Rate [ From Monitor] Respiratory 17 16 16 Rate Blood Pressure 122/80 128/83 128/83 O2 Sat by Pulse 100 100 100 Oximetry 07/02/19 07/02/19 07/02/19 02:20 02:30 02:40 Temperature Pulse Rate 97 H 97 H 98 H Pulse Rate [ From Monitor] Respiratory 16 16 16 Rate Blood Pressure 128/83 121/80 121/80 O2 Sat by Pulse 100 100 100 Oximetry 07/02/1918/20 20 02:50 03:00 03:10 Temperature Pulse Rate 98 H 97 H 97 H Pulse Rate [ From Monitor] Respiratory 16 16 16 Rate Blood Pressure 121/80 124/83 124/83 O2 Sat by Pulse 100 100 100 Oximetry 18/20 /18/20 18/20 03:20 03:30 03:40 Temperature Pulse Rate 99 H 98 H 97 H Pulse Rate [ From Monitor] Respiratory 16 16 16 Rate Blood Pressure 124/83 130/86 130/86 O2 Sat by Pulse 100 100 100 Oximetry 07/02/20 18/20 20 03:49 03:50 04:00 Temperature 98.8 F Pulse Rate 98 H 98 H Pulse Rate [ 106 H From Monitor] Respiratory 16 16 Rate Blood Pressure 130/86 129/85 O2 Sat by Pulse 100 100 Oximetry 07/02/20 07/02/20 20 04:10 04:20 04:30 Temperature Pulse Rate 99 H 98 H 99 H Pulse Rate [ From Monitor] Respiratory 16 16 16 Rate Blood Pressure 129/85 129/85 131/87 O2 Sat by Pulse 100 100 100 Oximetry 07/02/20 18/20 20 04:40 04:50 05:00 Temperature Pulse Rate 98 H 98 H 111 H Pulse Rate [ From Monitor] Respiratory 16 16 20 Rate Blood Pressure 131/87 131/87 127/96 O2 Sat by Pulse 100 100 100 Oximetry 20 18/20 07/02/20 05:10 05:20 05:30 Temperature Pulse Rate 98 H 99 H 99 H Pulse Rate [ From Monitor] Respiratory 16 16 16 Rate Blood Pressure 127/96 127/96 122/81 O2 Sat by Pulse 100 100 100 Oximetry 07/02/20 18/20 18/20 05:40 05:50 06:00 Temperature Pulse Rate 100 H 101 H 119 H Pulse Rate [ From Monitor] Respiratory 16 16 16 Rate Blood Pressure 122/81 122/81 132/87 O2 Sat by Pulse 100 100 99 Oximetry 07/02/20 /18/20 20 07:51 09:26 11:51 Temperature 98.2 F Pulse Rate 108 H 98 H Pulse Rate [ From Monitor] Respiratory Rate Blood Pressure 144/88 139/84 O2 Sat by Pulse 100 100 Oximetry 02/18/20 12:00 Temperature 98.2 F Pulse Rate Pulse Rate [ From Monitor] Respiratory Rate Blood Pressure O2 Sat by Pulse Oximetry - General Apperance Constitutional: acutely ill - EENT EENT: ATNC, PERRL, mucous membranes moist - Respiratory Respiratory: decreased breath sounds - Cardiovascular Cardiovascular: regular rate, normal S1, normal S2 Extremities: no peripheral edema bilat, no clubbing, cyanosis - Gastrointestinal Gastrointestinal: normoactive bowel sounds, soft, non-tender - Integumentary Integumentary: normal - Laboratory Findings CBC and BMP: 07/02/19 04:14 07/02/19 04:14 Abnormal Lab Findings: Abnormal Labs 06/29/19 06/29/19 06/29/19 08:39 08:39 10:47 WBC MCH RDW 15.4 H [place] % (Auto) [place] # Seg Neutrophils # ABG pH ABG pO2 257.4 H ABG HCO3 26.5 H ABG O2 Saturation 99.4 H ABG Base Excess ABG Hemoglobin 11.4 L Sodium Potassium 3.5 L Chloride Carbon Dioxide BUN Creatinine 0.4 L Glucose 105 H Alkaline Phosphatase 154 H Albumin 3.6 L Urine WBC (Auto) U Epithel Cells (Auto) 06/29/19 06/30/19 06/30/19 14:03 04:35 08:13 WBC 12.2 H MCH 27 L RDW 15.4 H [place] % (Auto) 11.4 H [place] # 1.4 H Seg Neutrophils # 8.2 H ABG pH 7.531 H ABG pO2 148.8 H ABG HCO3 26.1 H ABG O2 Saturation ABG Base Excess 4.0 H ABG Hemoglobin 11.8 L Sodium Potassium Chloride Carbon Dioxide BUN Creatinine Glucose Alkaline Phosphatase Albumin Urine WBC (Auto) 11.0 H U Epithel Cells (Auto) 34.0 H 06/30/19 07/01/19 07/02/19 08:13 04:00 04:14 WBC 11.4 H MCH 27 L RDW [place] % (Auto) [place] # Seg Neutrophils # ABG pH 7.477 H ABG pO2 148.1 H ABG HCO3 ABG O2 Saturation ABG Base Excess ABG Hemoglobin Sodium 136 L Potassium Chloride Carbon Dioxide 19 L BUN Creatinine 0.3 L Glucose Alkaline Phosphatase 162 H Albumin 3.3 L Urine WBC (Auto) U Epithel Cells (Auto) 07/02/19 07/02/19 04:14 05:00 WBC MCH RDW [place] % (Auto) [place] # Seg Neutrophils # ABG pH 7.504 H ABG pO2 142.2 H ABG HCO3 27.7 H ABG O2 Saturation ABG Base Excess 4.5 H ABG Hemoglobin 9.7 L Sodium 133 L Potassium 3.4 L Chloride 95.2 L Carbon Dioxide BUN 6 L Creatinine 0.2 L Glucose 105 H Alkaline Phosphatase 135 H Albumin 2.8 L Urine WBC (Auto) U Epithel Cells (Auto)
[2019-07-02] MEDS ORDERED: LACOSAMIDE 200 MG in SODIUM CHLORIDE 0.9% 100 ML IV SCH (14:00)
--- NOTE | 2019-07-02 17:02 | Magnetic Resonance Report ---
MRI BRAIN WITHOUT CONTRAST INDICATION / CLINICAL INFORMATION: SEIZURE. TECHNIQUE: Multiplanar, multisequence MR images of the brain were obtained. COMPARISON: None available. FINDINGS: BRAIN / INTRACRANIAL CONTENTS: There is extensive cerebral white matter disease most consistent with microvascular angiopathythere there are milder findings involving the audra and medulla, greater on th e right. 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 There is somewhat symmet lorie and relative increased diffusion signal along the central sulci bilaterally which would appear to be artifactual. Otherwise, the diffusion imaging reveals no clear evidence of acute infarction. There is prominence of the ventricular system which may be related to the degree of cerebral atrophy, most notably involving the hippocampi at. However, there is relative effacement of the sulci near th e vertex and correlation would be needed regarding normal pressure hydrocephalus. No extra-axial flui d collections are identified. CRANIOCERVICAL JUNCTION: No significant abnormality. VASCULAR FLOW-VOIDS: No significant abnormality. ORBITS: No significant abnormality of visualized orbits. SINUSES / MASTOIDS: No significant abnormality of the visualized paranasal sinuses or mastoid air marialuisa ls. ADDITIONAL FINDINGS: None. IMPRESSION: 1. There is extensive microvascular angiopathy as detailed above without definitive evidence of recen t infarction. 2. There is cerebral atrophy and prominence of the ventricular system, also described above. Signer Name: Lonnie Simental MD Signed: 07/02/2019 4:58 PM Workstation Name: [id number]
--- NOTE | 2019-07-02 17:15 | Consultation ---
History of Present Illness - Reason for Consult Consult date: 07/02/19 - History of Present Illness 63-year-old female with a past medical history of status epilepticus, multiple sclerosis, HTN admitted to the hospital with recurrent seizures. He was intubated in the emergency room for airway protection given her status epilepticus and was started on Ativan drip. There was report from the hospitalist that she had an ESBL E. coli UTI from an outside hospital. Imaging personally reviewed: Chest x-ray: Right midlung pulmonary opacity Past History Past Medical History: other (history of seizures, MS, hypertension, hyperlipidemia.) Social history: Lives alone (Assisted living facility) Family history: no significant family history Medications and Allergies Allergies Allergy/AdvReac Type Severity Reaction Status Date / Time No Known Allergies Allergy Unverified 03/29/19 20:00 Home Medications Medication Instructions Recorded Confirmed Last Taken Type Acetaminophen [Acetaminophen TAB] 1,000 mg PO Q8HR PRN 03/30/19 06/29/19 Unknown History Aspirin EC [Halfprin EC] 81 mg PO QDAY 03/30/19 06/29/19 Unknown History Atorvastatin [Lipitor] 40 mg PO QHS 03/30/19 06/29/19 Unknown History Latanoprost 0.005% 1 drop OP QPM 03/30/19 06/29/19 Unknown History Menthol/Camphor [Dermasarra 222 ml TP PRN PRN 03/30/19 06/29/19 Unknown History Anti-Itch Lotion] Sulindac 200 mg PO BID PRN 03/30/19 06/29/19 Unknown History Venlafaxine ER 150 mg PO DAILY 03/30/19 06/29/19 Unknown History Metoprolol [Lopressor TAB] 12.5 mg PO BID #30 tablet 04/03/19 06/29/19 Unknown Rx levETIRAcetam [Keppra TAB] 500 mg PO BID #60 tablet 04/03/19 06/29/19 Unknown Rx Potassium Chloride [K-Dur] 40 meq PO QDAY 06/29/19 06/29/19 Unknown History Tizanidine HCl [Tizanidine 2mg tab] 4 mg PO BID PRN 06/29/19 06/29/19 Unknown History hydroCHLOROthiazide [HCTZ] 25 mg PO QDAY 06/29/19 06/29/19 Unknown History traMADoL [Ultram] 50 mg PO Q8H PRN 06/29/19 06/29/19 Unknown History Active Meds: Active Medications Acetaminophen (Tylenol) 650 mg PO Q4H PRN PRN Reason: Pain MILD(1-3)/Fever >100.5/ALEGRIA Lipase/Protease/Amylase (Pancreaze Dr 10,500 Unit) 1 each FEEDTUBE PRN PRN PRN Reason: For Clogged Feeding Tube Aspirin (Halfprin Ec) 81 mg PO QDAY [facility] Last Admin: 07/02/19 09:34 Dose: 81 mg Documented by: Atorvastatin Calcium (Lipitor) 40 mg PO QHS [facility] Last Admin: 07/01/19 21:59 Dose: 40 mg Documented by: Famotidine (Pepcid) 20 mg IV BID [facility] Last Admin: 07/02/19 09:31 Dose: 20 mg Documented by: Heparin Sodium (Porcine) (Heparin) 5,000 unit SUB-Q Q12HR [facility] Last Admin: 07/02/19 09:31 Dose: 5,000 unit Documented by: Hydrochlorothiazide (Hctz) 25 mg PO QDAY [facility] Last Admin: 07/02/19 09:31 Dose: 25 mg Documented by: Hydrophilic Ointment (Vaseline Lip Therapy) 1 applic TP Q2HR PRN PRN Reason: Dry Lips Lorazepam 100 mg/ Sodium Chloride/ Miscellaneous Information 100 mls @ 1 mls/hr IV TITR JANES; Protocol Last Titration: 06/30/19 11:00 Dose: 0 mg/hr, 0 mls/hr Documented by: Dextrose (D5w) 1,000 mls @ 75 mls/hr IV DIRECT JANES Dextrose/Sodium Chloride (D5ns) 1,000 mls @ 75 mls/hr IV DIRECT JANES Last Admin: 07/02/19 03:29 Dose: 75 mls/hr Documented by: Levetiracetam 1,500 mg/ (Dextrose) 115 mls @ 400 mls/hr IV Q12HR [facility] Last Admin: 07/02/19 10:00 Dose: 400 mls/hr Documented by: Levofloxacin/Dextrose (Levaquin 250mg/50ml) 250 mg in 50 mls @ 50 mls/hr IV Q24HR [facility] Last Admin: 07/02/19 10:45 Dose: 50 mls/hr Documented by: Lacosamide 200 mg/ Sodium (Chloride) 120 mls @ 100 mls/hr IV NOW [facility] Last Admin: 07/02/19 14:41 Dose: 100 mls/hr Documented by: Lacosamide 100 mg/ Sodium (Chloride) 110 mls @ 100 mls/hr IV Q12H [facility] Latanoprost (Latanoprost 0.005%) 1 drops OU QPM [facility] Last Admin: 07/01/19 18:00 Dose: 1 drops Documented by: Lorazepam (Ativan) 2 mg IV Q1H PRN PRN Reason: Seizures Metoprolol Tartrate (Metoprolol) 12.5 mg PO BID [facility] Last Admin: 07/02/19 09:34 Dose: 12.5 mg Documented by: Multi-Ingred Cream/Lotion/Oil/Oint (Artificial Tears Ophth Oint) 1 applic OU Q4HR PRN PRN Reason: Dry Eye(s) Ondansetron HCl (Zofran) 4 mg IV Q8H PRN PRN Reason: Nausea And Vomiting Potassium Chloride (K-Dur) 40 meq PO QDAY [facility] Last Admin: 07/02/19 09:34 Dose: 40 meq Documented by: Simple Syrup (Simple Syrup) 15 ml FEEDTUBE PRN PRN PRN Reason: Hypoglycemia Simple Syrup (Simple Syrup) 30 ml FEEDTUBE PRN PRN PRN Reason: Hypoglycemia Sodium Bicarbonate (Sodium Bicarbonate) 325 mg FEEDTUBE PRN PRN PRN Reason: For Clogged Feeding Tube Sodium Chloride (Sodium Chloride Flush Syringe 10 Ml) 10 ml IV BID [facility] Last Admin: 07/02/19 09:41 Dose: 10 ml Documented by: Sodium Chloride (Sodium Chloride Flush Syringe 10 Ml) 10 ml IV PRN PRN PRN Reason: LINE FLUSH Venlafaxine HCl (Effexor Xr) 150 mg PO DAILY [facility] Last Admin: 07/02/19 09:31 Dose: 150 mg Documented by: Review of Systems ROS unobtainable: due to endotracheal tube, due to mental status Physical Examination - Physical Exam Narrative exam: Physical Exam: Constitutional: Intubated, sedated Head, Ears, Nose: Normocephalic, atraumatic. External ears, nose normal Eyes: Conjunctivae/corneas clear. No icterus. No ptosis. Neck: Intubated Oral: Intubated Cardiovascular: S1, S2 normal. Respiratory: Good air entry, clear to auscultation bilaterally GI: Soft, non-tender; bowel sounds normal. No peritoneal signs. Musculoskeletal: No pedal edema, no cyanosis. Skin: No rash or abscess Hem/Lymphatic: No palpable cervical or supraclavicular nodes. No lymphangitis Psych: Sedated Neurological: Sedated - Constitutional Vitals: Vital Signs Temp Pulse Resp BP Pulse Ox 98.2 F 105 H 16 139/96 100 07/02/19 12:00 07/02/19 16:38 07/02/19 16:00 07/02/19 16:38 07/02/19 16:38 Temperature -Last 24 Hours Temperature 98.2 F Temperature 98.2 F Temperature 98.8 F Temperature 98.2 F Temperature 98.7 F Results - Labs CBC & Chem 7: 07/02/19 04:14 07/02/19 04:14 Labs: Abnormal lab results 07/02/19 07/02/19 07/02/19 Range/Units 04:14 04:14 05:00 WBC 11.4 H (4.5-11.0) K/mm3 MCH 27 L (28-32) pg ABG pH 7.504 H (7.350-7.450) pH Units ABG pO2 142.2 H (80.0-90.0) mm Hg ABG HCO3 27.7 H (20.0-26.0) mmol/L ABG Base Excess 4.5 H (-2.0-3.0) mmol/L ABG Hemoglobin 9.7 L (12.0-16.0) gm/dl Sodium 133 L (137-145) mmol/L Potassium 3.4 L (3.6-5.0) mmol/L Chloride 95.2 L (98-107) mmol/L BUN 6 L (7-17) mg/dL Creatinine 0.2 L (0.7-1.2) mg/dL Glucose 105 H (65-100) mg/dL Alkaline Phosphatase 135 H (35-129) units/L Albumin 2.8 L (3.9-5) g/dL Assessment and Plan Cultures: 06/29/2019 sputum culture: Negative A&P: 63-year-old woman past medical history status epilepticus, multiple sclerosis, HTN admitted with recurrent status epilepticus. Found to have pneumonia, possible aspiration and reported to have ESBL E. coli UTI from [facility]. #ESBL E. coli UTI: Reported from [facility]. Recommend stopping levofloxacin given unclear susceptibility pattern and starting ertapenem to complete 3 days of therapy #Pneumonia: Concern for aspiration given seizures. Will be incidentally treated with ertapenem which well covers most aspiration pathogens including anaerobes. Recommendations: Stop levofloxacin Start ertapenem 1 g every 24 hours Thank you for the consult, will continue to follow MD [facility] M: [phone] O: [phone] F: [phone]
--- NOTE | 2019-07-02 18:09 | Progress Note ---
Assessment and Plan Assessment and plan: According to documentation on admission this is a 63-year-old female with a history of status epilepticus presenting to the ED with recurrent seizures and per history was treated here in March requiring endotracheal intubation.in the ED she was given Ativan and 2 g of Keppra. This was intermittently successful in stopping her seizures. Therefore we proceeded to RSI at elective intubation. The son was informed of the indications and risks of the procedure. He was in agreement. On admission is documented The patient is able to recognize family members at her baseline. She is contracted. She lives in an assisted living. However she is able to assist with her ADLs. Review of her previous admission at that time showed that she was treated for status epilepticus which resolved and was discharged on oral Keppra also at the same admission patient was intubated and subsequently extubated was also treated for urinary tract infection and severe protein calorie malnutrition with severe hypokalemia. Home medication of hydrochlorothiazide at that time was discontinued. * Patient currently is intubated continues on IV Keppra neurology did see the patient repeat EEG was performed but no active seizures was noted unfortunately patient is currently not waking up despite being off Ativan. * She continues to require mechanical ventilation due to mental status. * Keppra increased to 1500 mg twice daily by neurology recommends Ativan IV 1 mg if seizure lasting more than 2 minutes * Chest x-ray is unremarkable * Poor prognosis * 07/02. Repeat EEG shows seizure activity. Discussed with Neurologist and He has called [facility] to request transfer. Message left for the son also. * Discussed with [facility] doctors about UTI result from previous test, ID consulted and recommended ertapenem for possible ESBL Ecoli UTI Status epilepticus Acute respiratory failure secondary to status epilepticus Hypertension Hyperlipidemia ESBL Ecoli utiNO SEPSIS Glaucoma [facility] resident The high probability of a clinically significant, sudden or life threatening deterioration of the [neurology] system(s) required my full and direct attention, intervention and personal management. The aggregate critical care time was [35] minutes. This time is in addition to time spent performing reported procedures but includes the following: [x] Data Review and interpretation [x] Patient assessment and monitoring of vital signs [x] Documentation [x] Medication orders and management History Interval history: Patient seen and examined remains unresponsive despite being off sedatives. Continues on intubation. Hospitalist Physical - Physical exam Narrative exam: VITAL SIGNS: Reviewed. GENERAL: The patient appears cachectic, critically ill-appearing currently intubated vital signs as documented. HEAD: No signs of head trauma. EYES: Pupils are equal. Extraocular motions intact. EARS: Unable to assess MOUTH: ET tube in place . NECK: No adenopathy, no JVD. CHEST: Chest with bronchovesicular breath sounds bilaterally. No wheezes, rales, or rhonchi. CARDIAC: Regular rate and rhythm. S1 and S2, without murmurs, gallops, or rubs. VASCULAR: No Edema. Peripheral pulses normal and equal in all extremities. ABDOMEN: Soft, non tender and non distended. No rebound or guarding, and no masses palpated. Bowel Sounds normal. MUSCULOSKELETAL: Good range of motion of all major joints. Extremities without clubbing, cyanosis or edema. NEUROLOGIC EXAM: Unresponsive. Withdraws to pain. PSYCHIATRIC: Unable to assess SKIN: detial exam as documented in skin assessment - Constitutional Vitals: Temp Pulse Resp BP Pulse Ox 98.2 F 105 H 16 139/96 100 07/02/19 16:00 07/02/19 16:38 07/02/19 16:00 07/02/19 16:38 07/02/19 16:38 General appearance: Present: no acute distress, well-nourished Results - Labs CBC & Chem 7: 07/02/19 04:14 07/02/19 04:14 Labs: Laboratory Last Values WBC 11.4 K/mm3 (4.5-11.0) H 07/02/19 04:14 RBC 4.65 M/mm3 (3.65-5.03) 07/02/19 04:14 Hgb 12.5 gm/dl (10.1-14.3) 07/02/19 04:14 Hct 37.7 % (30.3-42.9) 07/02/19 04:14 MCV 81 fl (79-97) 07/02/19 04:14 MCH 27 pg (28-32) L 07/02/19 04:14 MCHC 33 % (30-34) 07/02/19 04:14 RDW 15.0 % (13.2-15.2) 07/02/19 04:14 Plt Count 303 K/mm3 (140-440) 07/02/19 04:14 Lymph % (Auto) 20.6 % (13.4-35.0) 06/30/19 08:13 Nye % (Auto) 11.4 % (0.0-7.3) H 06/30/19 08:13 Eos % (Auto) 0.3 % (0.0-4.3) 06/30/19 08:13 Baso % (Auto) 0.7 % (0.0-1.8) 06/30/19 08:13 Lymph # 2.5 K/mm3 (1.2-5.4) 06/30/19 08:13 Nye # 1.4 K/mm3 (0.0-0.8) H 06/30/19 08:13 Eos # 0.0 K/mm3 (0.0-0.4) 06/30/19 08:13 Baso # 0.1 K/mm3 (0.0-0.1) 06/30/19 08:13 Seg Neutrophils % 67.0 % (40.0-70.0) 06/30/19 08:13 Seg Neutrophils # 8.2 K/mm3 (1.8-7.7) H 06/30/19 08:13 PT 13.4 Sec. (12.2-14.9) 06/29/19 08:39 INR 1.01 (0.87-1.13) 06/29/19 08:39 APTT 27.7 Sec. (24.2-36.6) 06/29/19 08:39 ABG pH 7.504 pH Units (7.350-7.450) H 07/02/19 05:00 ABG pCO2 36.0 mm Hg 07/02/19 05:00 ABG pO2 142.2 mm Hg (80.0-90.0) H 07/02/19 05:00 ABG HCO3 27.7 mmol/L (20.0-26.0) H 07/02/19 05:00 ABG O2 Saturation 98.9 % (95.0-99.0) 07/02/19 05:00 ABG O2 Content 13.6 (0.0-44) 07/02/19 05:00 ABG Base Excess 4.5 mmol/L (-2.0-3.0) H 07/02/19 05:00 ABG Hemoglobin 9.7 gm/dl (12.0-16.0) L 07/02/19 05:00 ABG Carboxyhemoglobin 1.1 % (0.0-5.0) 07/02/19 05:00 ABG Methemoglobin 0.7 % (0.0-1.5) 07/02/19 05:00 Oxyhemoglobin 97.1 % (95.0-99.0) 07/02/19 05:00 FiO2 30 % 07/02/19 05:00 Sodium 133 mmol/L (137-145) L 07/02/19 04:14 Potassium 3.4 mmol/L (3.6-5.0) L 07/02/19 04:14 Chloride 95.2 mmol/L (98-107) L 07/02/19 04:14 Carbon Dioxide 22 mmol/L (22-30) 07/02/19 04:14 Anion Gap 19 mmol/L 07/02/19 04:14 BUN 6 mg/dL (7-17) L 07/02/19 04:14 Creatinine 0.2 mg/dL (0.7-1.2) L 07/02/19 04:14 Estimated GFR > 60 ml/min 07/02/19 04:14 BUN/Creatinine Ratio 30 % 07/02/19 04:14 Glucose 105 mg/dL (65-100) H 07/02/19 04:14 POC Glucose 91 (70-105) 06/30/19 16:46 Hemoglobin A1c 5.3 % (4-6) 06/29/19 16:09 Calcium 8.7 mg/dL (8.4-10.2) 07/02/19 04:14 Magnesium 2.00 mg/dL (1.7-2.3) 06/29/19 08:39 Total Bilirubin 0.40 mg/dL (0.1-1.2) 07/02/19 04:14 Direct Bilirubin < 0.2 mg/dL (0-0.2) 06/29/19 08:39 Indirect Bilirubin 0.1 mg/dL 06/29/19 08:39 AST 32 units/L (5-40) 07/02/19 04:14 ALT 16 units/L (7-56) 07/02/19 04:14 Alkaline Phosphatase 135 units/L (35-129) H 07/02/19 04:14 Total Creatine Kinase 132 units/L (30-135) 06/29/19 08:39 CK-MB (CK-2) 2.6 ng/mL (0.0-4.0) 06/29/19 08:39 CK-MB (CK-2) Rel Index 1.9 (0-4) 06/29/19 08:39 Troponin T < 0.010 ng/mL (0.00-0.029) 06/29/19 08:39 NT-Pro-B Natriuret Pep 193.4 pg/mL (0-900) 06/29/19 08:39 Total Protein 6.4 g/dL (6.3-8.2) 07/02/19 04:14 Albumin 2.8 g/dL (3.9-5) L 07/02/19 04:14 Albumin/Globulin Ratio 0.8 % 07/02/19 04:14 Urine Color Yellow (Yellow) 06/29/19 14:03 Urine Turbidity Cloudy (Clear) 06/29/19 14:03 Urine pH 7.0 (5.0-7.0) 06/29/19 14:03 Ur Specific [place] 1.015 (1.003-1.030) 06/29/19 14:03 Urine Protein <15 mg/dl mg/dL (Negative) 06/29/19 14:03 Urine Glucose (UA) Neg mg/dL (Negative) 06/29/19 14:03 Urine Ketones 20 mg/dL (Negative) 06/29/19 14:03 Urine Blood Neg (Negative) 06/29/19 14:03 Urine Nitrite Pos (Negative) 06/29/19 14:03 Urine Bilirubin Neg (Negative) 06/29/19 14:03 Urine Urobilinogen 4.0 mg/dL (<2.0) 06/29/19 14:03 Ur Leukocyte Esterase Tr (Negative) 06/29/19 14:03 Urine WBC (Auto) 11.0 /HPF (0.0-6.0) H 06/29/19 14:03 Urine RBC (Auto) 1.0 /HPF (0.0-6.0) 06/29/19 14:03 U Epithel Cells (Auto) 34.0 /HPF (0-13.0) H 06/29/19 14:03 Urine Bacteria (Auto) 3+ /HPF (Negative) 06/29/19 14:03 Urine Mucus 1+ /HPF 06/29/19 14:03 Urine Opiates Screen Presumptive negative 07/01/19 11:40 Urine Methadone Screen Presumptive negative 07/01/19 11:40 Ur Barbiturates Screen Presumptive negative 07/01/19 11:40 Ur Phencyclidine Scrn Presumptive negative 07/01/19 11:40 Ur Amphetamines Screen Presumptive negative 07/01/19 11:40 U Benzodiazepines Scrn Presumptive negative 07/01/19 11:40 Urine Cocaine Screen Presumptive negative 07/01/19 11:40 U Marijuana (THC) Screen Presumptive negative 07/01/19 11:40 Drugs of Abuse Note Disclamer 07/01/19 11:40 Active Medications - Current Medications Current Medications: Generic Name Dose Route Start Last Admin Trade Name Freq PRN Reason Stop Dose Admin Acetaminophen 650 mg 06/29/19 15:31 Tylenol PO Q4H PRN Pain MILD(1-3)/Fever >100.5/ALEGRIA Lipase/Protease/Amylase 1 each 06/29/19 15:31 Pancreaze 10,500 Unit FEEDTUBE PRN PRN For Clogged Feeding Tube Aspirin 81 mg 07/01/19 10:00 07/02/19 09:34 Halfprin Ec PO 81 mg QDAY JANES Administration Atorvastatin Calcium 40 mg 07/01/19 22:00 07/01/19 21:59 Lipitor PO 40 mg QHS JANES Administration Famotidine 20 mg 06/29/19 22:00 07/02/19 09:31 Pepcid IV 20 mg BID JANES Administration Heparin Sodium (Porcine) 5,000 unit 07/01/19 10:00 07/02/19 09:31 Heparin SUB-Q 5,000 unit Q12HR JANES Administration Hydrochlorothiazide 25 mg 07/01/19 10:00 07/02/19 09:31 Hctz PO 25 mg QDAY JANES Administration Hydrophilic Ointment 1 applic 06/29/19 09:47 Vaseline Lip Therapy TP Q2HR PRN Dry Lips Lorazepam 100 mg/ Sodium 100 mls @ 1 mls/hr 06/29/19 10:30 06/30/19 11:00 Chloride/ Miscellaneous IV 0 mg/hr Information TITR JANES 0 mls/hr Titration Protocol 1 MG/HR Dextrose 1,000 mls @ 75 mls/hr 06/29/19 19:00 D5w IV DIRECT JANES Dextrose/Sodium Chloride 1,000 mls @ 75 mls/hr 06/29/19 19:00 07/02/19 03:29 D5ns IV 75 mls/hr DIRECT JANES Administration Levetiracetam 1,500 mg/ 115 mls @ 400 mls/hr 07/01/19 22:00 07/02/19 10:20 Dextrose IV Infused Q12HR JANES Infusion Lacosamide 200 mg/ Sodium 120 mls @ 100 mls/hr 07/02/19 14:00 07/02/19 16:00 Chloride IV Infused NOW JANES Infusion Lacosamide 100 mg/ Sodium 110 mls @ 100 mls/hr 07/02/19 22:00 Chloride IV Q12H JANES Ertapenem 1 gm/ Sodium 50 mls @ 100 mls/hr 07/02/19 18:00 Chloride IV 07/04/19 10:29 QDAY JANES Latanoprost 1 drops 07/01/19 18:00 07/01/19 18:00 Latanoprost 0.005% OU 1 drops QPM JANES Administration Lorazepam 2 mg 06/29/19 22:50 Ativan IV Q1H PRN Seizures Metoprolol Tartrate 12.5 mg 07/01/19 10:00 07/02/19 09:34 Metoprolol PO 12.5 mg BID JANES Administration Multi-Ingred Cream/Lotion/Oil/Oint 1 applic 06/29/19 09:47 Artificial Tears Ophth Oint OU Q4HR PRN Dry Eye(s) Ondansetron HCl 4 mg 06/29/19 15:31 Zofran IV Q8H PRN Nausea And Vomiting Potassium Chloride 40 meq 07/01/19 10:00 07/02/19 09:34 K-Dur PO 40 meq QDAY JANES Administration Simple Syrup 15 ml 06/29/19 15:31 Simple Syrup FEEDTUBE PRN PRN Hypoglycemia Simple Syrup 30 ml 06/29/19 15:31 Simple Syrup FEEDTUBE PRN PRN Hypoglycemia Sodium Bicarbonate 325 mg 06/29/19 15:31 Sodium Bicarbonate FEEDTUBE PRN PRN For Clogged Feeding Tube Sodium Chloride 10 ml 06/29/19 22:00 07/02/19 09:41 Sodium Chloride Flush Syringe 10 Ml IV 10 ml BID JANES Administration Sodium Chloride 10 ml 06/29/19 15:31 Sodium Chloride Flush Syringe 10 Ml IV PRN PRN LINE FLUSH Venlafaxine HCl 150 mg 07/01/19 10:00 07/02/19 09:31 Effexor Xr PO 150 mg DAILY JANES Administration Nutrition/Malnutrition Assess - Dietary Evaluation Nutrition/Malnutrition Findings: Nutrition Notes Start: 06/30/19 08:32 Freq: Status: Active Protocol: Document 07/02/19 11:34 CT (Rec: 07/02/19 11:39 CT [email or web address]) Co-Sign 07/02/19 11:34 LP Nutrition Notes Initial or Follow up Reassessment Current Diagnosis Hypertension,Malnutrition Other Pertinent Diagnosis Multiple Sclerosis Current Diet TF Osmolite 1.5 at 40 ml/hr Labs/Tests Na 133 K 3.4 BUN 6 Cr 0.2 Glu 105 Pertinent Medications D5NS 75 ml/hr Heparin KDur Height 5 ft 6 in Weight 39.3 kg [place] Body Weight (kg) 59.09 BMI 13.9 Weight Status Emaciated Subjective/Other Information Follow up for TF tolerance. Per RN pt is tolerating TF and TF running at goal rate. RD reduced flush from 120 ml q4h to 60 ml q4h for hyponatremia. Percent of energy/protein needs met: 100% / 100% Burn Absent Trauma Absent Current % PO Negligible Minimum of two criteria Yes Body Fat Depletion Moderate depletion (severe) Muscle Mass Moderate Depletion (severe) #1 Nutrition Diagnosis Malnutrition Diagnosis Progress(for reassessment Continues documentation) Is patient on ventilator? Yes Is Patient Ambulatory and/or Out of Bed No REE-([facility]-confined to bed) 1169.184 Kcal/Kg value to use for calculation 37 Approximate Energy Requirements Using 1454 kcal/Kg Calculation Used for Recommendations Kcal/kg Additional Notes Pro needs: 48-80g/day (1.2-2 g /kg) Fluid needs: 1 ml/kcal Nutrition Intervention Change Diet Order: TF Nutrition Support: Osmolite 1.5 at 40ml/hr Flush 60 ml q4h for hyponatremia, once resolved flush 120 ml q4h Kcal 1,440 Protein (gm) 60 Fluid (mL) 732 Fiber (gm) 0 Goal #1 TF tolerance Goal #2 Meet at least 75% of energy and protein needs via TF Anticipated Discharge Needs: Unknown at this time Follow-Up By: 07/04/19 Additional Comments Follow up for TF tolerance and Na labs
[2019-07-02] MEDS: LATANOPROST 0.005% OPHTH SOLN 2.5 ML OU SCH (18:36)
[2019-07-02] MEDS: ERTAPENEM 1 GM in SODIUM CHLORIDE 0.9% 50 ML IV SCH (18:36)
[2019-07-02] MEDS: LACOSAMIDE 100 MG in SODIUM CHLORIDE 0.9% 100 ML IV SCH (22:34)
[2019-07-02] MEDS ORDERED: SODIUM CHLORIDE IV ONE (23:15)
[2019-07-02] MEDS ORDERED: [UNRECOGNIZED DRUG - OTHER] IV ONE (23:15)
[2019-07-02] MEDS ORDERED: FOSPHENYTOIN IV ONE (23:15)
[2019-07-02] MEDS: LORazepam 100 MG in SODIUM CHLORIDE 0.9% 50 ML, EMPTY BAG 0 ML IV SCH (23:57)
--- NOTE | 2019-07-03 02:11 | XRay Report ---
CHEST 1 VIEW INDICATION / CLINICAL INFORMATION: follow up respiratory failure. COMPARISON: 07/02/2019 FINDINGS: SUPPORT DEVICES: Stable, satisfactory device positioning. HEART / MEDIASTINUM: No significant abnormality. LUNGS / PLEURA: Unchanged. No pneumothorax. ADDITIONAL FINDINGS: No significant additional findings. IMPRESSION: 1. No significant change. Signer Name: Ty Suazo MD Signed: 07/03/2019 2:07 AM Workstation Name: [id number]
[2019-07-03] MEDS: D5W/0.9% NACL 1,000 ML IV SCH ×2 (03:00→18:41)
[2019-07-03 03:50] LABS: ABG Base Excess 5.3 mmol/L (-2.0-3.0); ABG HCO3 28.4 mmol/L (20.0-26.0); ABG Methemoglobin 0.6 % (0.0-1.5); ABG Oxygen Saturation 98.8 % (95.0-99.0); ABG PCO2 35.9 mm Hg; ABG PH 7.515 pH Units (7.350-7.450); ABG PO2 135.2 mm Hg (80.0-90.0)
[2019-07-03 06:34] LABS: Hematocrit 37.6 % (30.3-42.9); Hemoglobin 12.7 gm/dl (10.1-14.3); Mean Corpuscular HGB Conc 34 % (30-34); Mean Corpuscular Volume 82 fl (79-97); Platelet Count 301 K/mm3 (140-440); Red Cell Distribution Width 15.2 % (13.2-15.2)
[2019-07-03 07:01] LABS: BUN/Creatinine Ratio 23; Blood Urea Nitrogen 9 mg/dL (7-17); Calcium 9.1 mg/dL (8.4-10.2); Hemolysis Index 117
[2019-07-03] MEDS: LACOSAMIDE 100 MG in SODIUM CHLORIDE 0.9% 100 ML IV SCH ×2 (10:10→22:03)
[2019-07-03] MEDS: POTASSIUM CHLORIDE ER 20 MEQ TAB PO SCH (10:23)
[2019-07-03] MEDS: [UNRECOGNIZED DRUG - OTHER] IV SCH ×2 (10:23→21:43)
[2019-07-03] MEDS: FOSPHENYTOIN IV SCH ×2 (10:23→21:43)
[2019-07-03] MEDS: METOPROLOL TARTRATE 25 MG TAB PO SCH ×2 (10:23→22:09)
[2019-07-03] MEDS: SODIUM CHLORIDE IV SCH ×2 (10:23→21:43)
[2019-07-03] MEDS: levETIRAcetam 1,500 MG in DEXTROSE 5% IN WATER 100 ML IV SCH ×2 (10:23→21:36)
[2019-07-03] MEDS: ASPIRIN EC 81 MG TAB PO SCH (10:23)
[2019-07-03] MEDS: ERTAPENEM 1 GM in SODIUM CHLORIDE 0.9% 50 ML IV SCH (10:23)
[2019-07-03] MEDS: FAMOTIDINE 20 MG/2 ML INJ IV SCH ×2 (10:24→21:37)
[2019-07-03] MEDS: HEPARIN 5,000 UNIT/1 ML VIAL SUB-Q SCH ×2 (10:24→21:37)
[2019-07-03] MEDS: hydroCHLOROthiazide 25 MG TAB PO SCH (10:24)
[2019-07-03] MEDS: VENLAFAXINE XR 75 MG CAP PO SCH (10:25)
--- NOTE | 2019-07-03 12:17 | Progress Note ---
Assessment and Plan 63 y/o female with status epilepticus 1. Follow up neuro recs from today. Loaded with fosphenytoin last night. [facility]. 2. Send repeat urine culture as first sample was inadequate, await results, concern for ESBL 3. Hold extubation 4. Continue anti epileptic therapy for now. 5. per nursing, [facility] contacted us and stated that UTI's in the past have been from E. Coli resistant to rocephin. Abx therapy changed by IMS on yesterday and they have consulted ID. No concern for pneumonia or aspiration from a pulmonary standpoint. CXR's are clear. CCT 31 minutes. Subjective Date of service: 07/03/19 Principal diagnosis: Status epilepticus Interval history: Patient having seizures on yesterday. Neurology attempted transfer but no beds available at [facility] or [facility]. ID saw yesterday and concerned about right mid lung opacity. No fever, no increase in oxygenation or change in breathing pattern. Objective Vital Signs - 12hr 07/03/19 07/03/19 07/03/19 00:30 01:00 01:30 Temperature Pulse Rate 97 H 97 H 97 H Pulse Rate [ From Monitor] Respiratory 16 16 16 Rate Blood Pressure 130/72 125/76 129/79 O2 Sat by Pulse 98 100 100 Oximetry 07/03/19 07/03/19 07/03/19 02:00 02:30 03:00 Temperature Pulse Rate 100 H 101 H 103 H Pulse Rate [ From Monitor] Respiratory 14 16 14 Rate Blood Pressure 140/84 143/86 150/87 O2 Sat by Pulse 100 100 100 Oximetry 07/03/19 07/03/19 07/03/19 03:04 03:30 04:00 Temperature 99.0 F Pulse Rate 104 H 104 H 107 H Pulse Rate [ 107 H From Monitor] Respiratory 16 16 Rate Blood Pressure 150/87 148/88 142/89 O2 Sat by Pulse 100 100 100 Oximetry 07/03/19 07/03/19 07/03/19 04:30 05:00 05:31 Temperature Pulse Rate 105 H 102 H 101 H Pulse Rate [ From Monitor] Respiratory 16 16 16 Rate Blood Pressure 133/79 123/72 116/67 O2 Sat by Pulse 100 100 Oximetry 07/03/19 07/03/19 07/03/19 06:00 06:30 07:00 Temperature Pulse Rate 100 H 101 H 98 H Pulse Rate [ From Monitor] Respiratory 16 16 16 Rate Blood Pressure 106/76 111/66 118/64 O2 Sat by Pulse 100 100 Oximetry 07/03/19 07/03/19 07/03/19 07:30 07:57 08:00 Temperature 98.2 F Pulse Rate 99 H 98 H Pulse Rate [ 99 H From Monitor] Respiratory 16 16 Rate Blood Pressure 113/72 118/64 O2 Sat by Pulse 100 100 100 Oximetry 07/03/19 07/03/19 07/03/19 08:01 08:30 09:01 Temperature Pulse Rate 100 H 103 H 112 H Pulse Rate [ From Monitor] Respiratory 15 12 17 Rate Blood Pressure 127/76 137/69 144/90 O2 Sat by Pulse 100 100 100 Oximetry 07/03/19 07/03/19 07/03/19 09:31 10:00 10:23 Temperature Pulse Rate 109 H 112 H 116 H Pulse Rate [ From Monitor] Respiratory 16 16 Rate Blood Pressure 114/70 110/55 110/55 O2 Sat by Pulse 100 100 Oximetry 07/03/19 07/03/19 07/03/19 10:30 11:00 11:30 Temperature Pulse Rate 115 H 113 H 105 H Pulse Rate [ From Monitor] Respiratory 16 16 16 Rate Blood Pressure 124/66 108/64 111/61 O2 Sat by Pulse 100 100 92 Oximetry 07/03/19 07/03/19 11:56 12:00 Temperature 98.0 F Pulse Rate 116 H 105 H Pulse Rate [ From Monitor] Respiratory 16 Rate Blood Pressure 110/55 111/61 O2 Sat by Pulse 100 100 Oximetry Gastrointestinal: normoactive bowel sounds, soft, non-tender Integumentary: normal CBC and BMP: 07/03/19 05:51 07/03/19 05:51 ABG, PT/INR, D-dimer: ABG ABG pH 7.515 pH Units (7.350-7.450) H 07/03/19 03:35 ABG pCO2 35.9 mm Hg 07/03/19 03:35 ABG pO2 135.2 mm Hg (80.0-90.0) H 07/03/19 03:35 ABG O2 Saturation 98.8 % (95.0-99.0) 07/03/19 03:35 PT/INR, D-dimer PT 13.4 Sec. (12.2-14.9) 06/29/19 08:39 INR 1.01 (0.87-1.13) 06/29/19 08:39 Abnormal lab findings: Abnormal Labs 06/29/19 06/29/19 06/29/19 08:39 08:39 10:47 WBC MCH RDW 15.4 H Rooks % (Auto) Rooks # Seg Neutrophils # ABG pH ABG pO2 257.4 H ABG HCO3 26.5 H ABG O2 Saturation 99.4 H ABG Base Excess ABG Hemoglobin 11.4 L Sodium Potassium 3.5 L Chloride Carbon Dioxide BUN Creatinine 0.4 L Glucose 105 H Alkaline Phosphatase 154 H Albumin 3.6 L Urine WBC (Auto) U Epithel Cells (Auto) 06/29/19 06/30/19 06/30/19 14:03 04:35 08:13 WBC 12.2 H MCH 27 L RDW 15.4 H Rooks % (Auto) 11.4 H Rooks # 1.4 H Seg Neutrophils # 8.2 H ABG pH 7.531 H ABG pO2 148.8 H ABG HCO3 26.1 H ABG O2 Saturation ABG Base Excess 4.0 H ABG Hemoglobin 11.8 L Sodium Potassium Chloride Carbon Dioxide BUN Creatinine Glucose Alkaline Phosphatase Albumin Urine WBC (Auto) 11.0 H U Epithel Cells (Auto) 34.0 H 06/30/19 07/01/19 07/02/19 08:13 04:00 04:14 WBC 11.4 H MCH 27 L RDW Rooks % (Auto) Rooks # Seg Neutrophils # ABG pH 7.477 H ABG pO2 148.1 H ABG HCO3 ABG O2 Saturation ABG Base Excess ABG Hemoglobin Sodium 136 L Potassium Chloride Carbon Dioxide 19 L BUN Creatinine 0.3 L Glucose Alkaline Phosphatase 162 H Albumin 3.3 L Urine WBC (Auto) U Epithel Cells (Auto) 07/02/19 07/02/19 07/03/19 04:14 05:00 03:35 WBC MCH RDW Rooks % (Auto) Rooks # Seg Neutrophils # ABG pH 7.504 H 7.515 H ABG pO2 142.2 H 135.2 H ABG HCO3 27.7 H 28.4 H ABG O2 Saturation ABG Base Excess 4.5 H 5.3 H ABG Hemoglobin 9.7 L Sodium 133 L Potassium 3.4 L Chloride 95.2 L Carbon Dioxide BUN 6 L Creatinine 0.2 L Glucose 105 H Alkaline Phosphatase 135 H Albumin 2.8 L Urine WBC (Auto) U Epithel Cells (Auto) 07/03/19 05:51 WBC MCH RDW Rooks % (Auto) Rooks # Seg Neutrophils # ABG pH ABG pO2 ABG HCO3 ABG O2 Saturation ABG Base Excess ABG Hemoglobin Sodium 135 L Potassium Chloride 95.1 L Carbon Dioxide 20 L BUN Creatinine 0.4 L D Glucose 120 H Alkaline Phosphatase Albumin Urine WBC (Auto) U Epithel Cells (Auto)
--- NOTE | 2019-07-03 17:06 | Progress Note ---
Assessment and Plan Assessment and plan: According to documentation on admission this is a 63-year-old female with a history of status epilepticus presenting to the ED with recurrent seizures and per history was treated here in March requiring endotracheal intubation.in the ED she was given Ativan and 2 g of Keppra. This was intermittently successful in stopping her seizures. Therefore we proceeded to RSI at elective intubation. The son was informed of the indications and risks of the procedure. He was in agreement. On admission is documented The patient is able to recognize family members at her baseline. She is contracted. She lives in an assisted living. However she is able to assist with her ADLs. Review of her previous admission at that time showed that she was treated for status epilepticus which resolved and was discharged on oral Keppra also at the same admission patient was intubated and subsequently extubated was also treated for urinary tract infection and severe protein calorie malnutrition with severe hypokalemia. Home medication of hydrochlorothiazide at that time was discontinued. 07/03: Yesterday attempted to transfer the patient to [facility] [place] but no bed at this time as patient will need continuous EEG. Today the patient was loaded with Fosphyentoin, Continues on Keppra. Will continue to await placement while continuing with management by Neurology. ID was also consulted to assist with management * Patient currently is intubated continues on IV Keppra neurology did see the patient repeat EEG was performed but no active seizures was noted unfortunately patient is currently not waking up despite being off Ativan. * She continues to require mechanical ventilation due to mental status. * Keppra increased to 1500 mg twice daily by neurology recommends Ativan IV 1 mg if seizure lasting more than 2 minutes * Chest x-ray is unremarkable * Poor prognosis * 07/02. Repeat EEG shows seizure activity. Discussed with Neurologist and He has called [place] to request transfer. Message left for the son also. * Discussed with [facility] doctors about UTI result from previous test, ID consulted and recommended ertapenem for possible ESBL Ecoli UTI Status epilepticus Acute respiratory failure secondary to status epilepticus Hypertension Hyperlipidemia ESBL Ecoli uti NO SEPSIS [facility] group home resident The high probability of a clinically significant, sudden or life threatening deterioration of the [neurology] system(s) required my full and direct attention, intervention and personal management. The aggregate critical care time was [35] minutes. This time is in addition to time spent performing reported procedures but includes the following: [x] Data Review and interpretation [x] Patient assessment and monitoring of vital signs [x] Documentation [x] Medication orders and management History Interval history: Patient seen and examined remains unresponsive despite being off sedatives. Continues on intubation. Hospitalist Physical - Physical exam Narrative exam: VITAL SIGNS: Reviewed. GENERAL: The patient appears cachectic, critically ill-appearing currently intubated. vital signs as documented. HEAD: No signs of head trauma. EYES: Pupils are equal. Extraocular motions intact. EARS: Unable to assess MOUTH: ET tube in place . NECK: No adenopathy, no JVD. CHEST: Chest with bronchovesicular breath sounds bilaterally. No wheezes, rales, or rhonchi. CARDIAC: Regular rate and rhythm. S1 and S2, without murmurs, gallops, or rubs. VASCULAR: No Edema. Peripheral pulses normal and equal in all extremities. ABDOMEN: Soft, non tender and non distended. No rebound or guarding, and no masses palpated. Bowel Sounds normal. MUSCULOSKELETAL: Good range of motion of all major joints. Extremities without clubbing, cyanosis or edema. NEUROLOGIC EXAM: Unresponsive. Withdraws to pain. PSYCHIATRIC: Unable to assess SKIN: detail exam as documented in skin assessment - Constitutional Vitals: Temp Pulse Resp BP Pulse Ox 98.0 F 105 H 16 111/61 100 07/03/19 12:00 07/03/19 15:23 07/03/19 12:00 07/03/19 15:23 07/03/19 15:23 General appearance: Present: no acute distress, well-nourished Results - Labs CBC & Chem 7: 07/03/19 05:51 07/03/19 05:51 Labs: Laboratory Last Values WBC 9.0 K/mm3 (4.5-11.0) 07/03/19 05:51 RBC 4.60 M/mm3 (3.65-5.03) 07/03/19 05:51 Hgb 12.7 gm/dl (10.1-14.3) 07/03/19 05:51 Hct 37.6 % (30.3-42.9) 07/03/19 05:51 MCV 82 fl (79-97) 07/03/19 05:51 MCH 28 pg (28-32) 07/03/19 05:51 MCHC 34 % (30-34) 07/03/19 05:51 RDW 15.2 % (13.2-15.2) 07/03/19 05:51 Plt Count 301 K/mm3 (140-440) 07/03/19 05:51 Lymph % (Auto) 20.6 % (13.4-35.0) 06/30/19 08:13 [place] % (Auto) 11.4 % (0.0-7.3) H 06/30/19 08:13 Eos % (Auto) 0.3 % (0.0-4.3) 06/30/19 08:13 Baso % (Auto) 0.7 % (0.0-1.8) 06/30/19 08:13 Lymph # 2.5 K/mm3 (1.2-5.4) 06/30/19 08:13 [place] # 1.4 K/mm3 (0.0-0.8) H 06/30/19 08:13 Eos # 0.0 K/mm3 (0.0-0.4) 06/30/19 08:13 Baso # 0.1 K/mm3 (0.0-0.1) 06/30/19 08:13 Seg Neutrophils % 67.0 % (40.0-70.0) 06/30/19 08:13 Seg Neutrophils # 8.2 K/mm3 (1.8-7.7) H 06/30/19 08:13 PT 13.4 Sec. (12.2-14.9) 06/29/19 08:39 INR 1.01 (0.87-1.13) 06/29/19 08:39 APTT 27.7 Sec. (24.2-36.6) 06/29/19 08:39 ABG pH 7.515 pH Units (7.350-7.450) H 07/03/19 03:35 ABG pCO2 35.9 mm Hg 07/03/19 03:35 ABG pO2 135.2 mm Hg (80.0-90.0) H 07/03/19 03:35 ABG HCO3 28.4 mmol/L (20.0-26.0) H 07/03/19 03:35 ABG O2 Saturation 98.8 % (95.0-99.0) 07/03/19 03:35 ABG O2 Content 16.8 (0.0-44) 07/03/19 03:35 ABG Base Excess 5.3 mmol/L (-2.0-3.0) H 07/03/19 03:35 ABG Hemoglobin 12.1 gm/dl (12.0-16.0) 07/03/19 03:35 ABG Carboxyhemoglobin 1.0 % (0.0-5.0) 07/03/19 03:35 ABG Methemoglobin 0.6 % (0.0-1.5) 07/03/19 03:35 Oxyhemoglobin 97.2 % (95.0-99.0) 07/03/19 03:35 FiO2 30 % 07/03/19 03:35 Sodium 135 mmol/L (137-145) L 07/03/19 05:51 Potassium 4.3 mmol/L (3.6-5.0) D 07/03/19 05:51 Chloride 95.1 mmol/L (98-107) L 07/03/19 05:51 Carbon Dioxide 20 mmol/L (22-30) L 07/03/19 05:51 Anion Gap 24 mmol/L 07/03/19 05:51 BUN 9 mg/dL (7-17) 07/03/19 05:51 Creatinine 0.4 mg/dL (0.7-1.2) L D 07/03/19 05:51 Estimated GFR > 60 ml/min 07/03/19 05:51 BUN/Creatinine Ratio 23 % 07/03/19 05:51 Glucose 120 mg/dL (65-100) H 07/03/19 05:51 POC Glucose 91 (70-105) 06/30/19 16:46 Hemoglobin A1c 5.3 % (4-6) 06/29/19 16:09 Calcium 9.1 mg/dL (8.4-10.2) 07/03/19 05:51 Magnesium 2.00 mg/dL (1.7-2.3) 06/29/19 08:39 Total Bilirubin 0.40 mg/dL (0.1-1.2) 07/02/19 04:14 Direct Bilirubin < 0.2 mg/dL (0-0.2) 06/29/19 08:39 Indirect Bilirubin 0.1 mg/dL 06/29/19 08:39 AST 32 units/L (5-40) 07/02/19 04:14 ALT 16 units/L (7-56) 07/02/19 04:14 Alkaline Phosphatase 135 units/L (35-129) H 07/02/19 04:14 Total Creatine Kinase 132 units/L (30-135) 06/29/19 08:39 CK-MB (CK-2) 2.6 ng/mL (0.0-4.0) 06/29/19 08:39 CK-MB (CK-2) Rel Index 1.9 (0-4) 06/29/19 08:39 Troponin T < 0.010 ng/mL (0.00-0.029) 06/29/19 08:39 NT-Pro-B Natriuret Pep 193.4 pg/mL (0-900) 06/29/19 08:39 Total Protein 6.4 g/dL (6.3-8.2) 07/02/19 04:14 Albumin 2.8 g/dL (3.9-5) L 07/02/19 04:14 Albumin/Globulin Ratio 0.8 % 07/02/19 04:14 Urine Color Yellow (Yellow) 06/29/19 14:03 Urine Turbidity Cloudy (Clear) 06/29/19 14:03 Urine pH 7.0 (5.0-7.0) 06/29/19 14:03 Ur Specific [place] 1.015 (1.003-1.030) 06/29/19 14:03 Urine Protein <15 mg/dl mg/dL (Negative) 06/29/19 14:03 Urine Glucose (UA) Neg mg/dL (Negative) 06/29/19 14:03 Urine Ketones 20 mg/dL (Negative) 06/29/19 14:03 Urine Blood Neg (Negative) 06/29/19 14:03 Urine Nitrite Pos (Negative) 06/29/19 14:03 Urine Bilirubin Neg (Negative) 06/29/19 14:03 Urine Urobilinogen 4.0 mg/dL (<2.0) 06/29/19 14:03 Ur Leukocyte Esterase Tr (Negative) 06/29/19 14:03 Urine WBC (Auto) 11.0 /HPF (0.0-6.0) H 06/29/19 14:03 Urine RBC (Auto) 1.0 /HPF (0.0-6.0) 06/29/19 14:03 U Epithel Cells (Auto) 34.0 /HPF (0-13.0) H 06/29/19 14:03 Urine Bacteria (Auto) 3+ /HPF (Negative) 06/29/19 14:03 Urine Mucus 1+ /HPF 06/29/19 14:03 Urine Opiates Screen Presumptive negative 07/01/19 11:40 Urine Methadone Screen Presumptive negative 07/01/19 11:40 Ur Barbiturates Screen Presumptive negative 07/01/19 11:40 Ur Phencyclidine Scrn Presumptive negative 07/01/19 11:40 Ur Amphetamines Screen Presumptive negative 07/01/19 11:40 U Benzodiazepines Scrn Presumptive negative 07/01/19 11:40 Urine Cocaine Screen Presumptive negative 07/01/19 11:40 U Marijuana (THC) Screen Presumptive negative 07/01/19 11:40 Drugs of Abuse Note Disclamer 07/01/19 11:40 Active Medications - Current Medications Current Medications: Generic Name Dose Route Start Last Admin Trade Name Freq PRN Reason Stop Dose Admin Acetaminophen 650 mg 06/29/19 15:31 Tylenol PO Q4H PRN Pain MILD(1-3)/Fever >100.5/ALEGRIA Lipase/Protease/Amylase 1 each 06/29/19 15:[address] 10,500 Unit FEEDTUBE PRN PRN For Clogged Feeding Tube Aspirin 81 mg 07/01/19 10:00 07/03/19 10:23 Halfprin Ec PO 81 mg QDAY JANES Administration Atorvastatin Calcium 40 mg 07/01/19 22:00 07/02/19 21:24 Lipitor PO 40 mg QHS JANES Administration Famotidine 20 mg 06/29/19 22:00 07/03/19 10:24 Pepcid IV 20 mg BID JANES Administration Heparin Sodium (Porcine) 5,000 unit 07/01/19 10:00 07/03/19 10:24 Heparin SUB-Q 5,000 unit Q12HR JANES Administration Hydrochlorothiazide 25 mg 07/01/19 10:00 07/03/19 10:24 Hctz PO 25 mg QDAY JANES Administration Hydrophilic Ointment 1 applic 06/29/19 09:47 Vaseline Lip Therapy TP Q2HR PRN Dry Lips Lorazepam 100 mg/ Sodium 100 mls @ 1 mls/hr 06/29/19 10:30 07/02/19 23:57 Chloride/ Miscellaneous IV 1 mg/hr Information TITR JANES 1 mls/hr Administration Protocol 1 MG/HR Dextrose/Sodium Chloride 1,000 mls @ 75 mls/hr 06/29/19 19:00 07/03/19 03:00 D5ns IV 75 mls/hr DIRECT JANES Administration Levetiracetam 1,500 mg/ 115 mls @ 400 mls/hr 07/01/19 22:00 07/03/19 10:23 Dextrose IV 400 mls/hr Q12HR JANES Administration Lacosamide 100 mg/ Sodium 110 mls @ 100 mls/hr 07/02/19 22:00 07/03/19 10:10 Chloride IV 100 mls/hr Q12H JANES Administration Ertapenem 1 gm/ Sodium 50 mls @ 100 mls/hr 07/02/19 18:00 07/03/19 10:23 Chloride IV 07/04/19 10:29 100 mls/hr QDAY JANES Administration Fosphenytoin Sodium 160 mg.pe/ 53.2 mls @ 212.8 mls/hr 07/03/19 10:00 07/03/19 10:23 Sodium Chloride IV 212.8 mls/hr Q12HR JANES Administration Latanoprost 1 drops 07/01/19 18:00 07/02/19 18:36 Latanoprost 0.005% OU 1 drops QPM JANES Administration Lorazepam 2 mg 06/29/19 22:50 Ativan IV Q1H PRN Seizures Metoprolol Tartrate 12.5 mg 07/01/19 10:00 07/03/19 10:23 Metoprolol PO 12.5 mg BID JANES Administration Multi-Ingred Cream/Lotion/Oil/Oint 1 applic 06/29/19 09:47 Artificial Tears Ophth Oint OU Q4HR PRN Dry Eye(s) Ondansetron HCl 4 mg 06/29/19 15:31 Zofran IV Q8H PRN Nausea And Vomiting Potassium Chloride 40 meq 07/01/19 10:00 07/03/19 10:23 K-Dur PO 40 meq QDAY JANES Administration Simple Syrup 15 ml 06/29/19 15:31 Simple Syrup FEEDTUBE PRN PRN Hypoglycemia Simple Syrup 30 ml 06/29/19 15:31 Simple Syrup FEEDTUBE PRN PRN Hypoglycemia Sodium Bicarbonate 325 mg 06/29/19 15:31 Sodium Bicarbonate FEEDTUBE PRN PRN For Clogged Feeding Tube Sodium Chloride 10 ml 06/29/19 22:00 07/03/19 10:25 Sodium Chloride Flush Syringe 10 Ml IV 10 ml BID JANES Administration Sodium Chloride 10 ml 06/29/19 15:31 Sodium Chloride Flush Syringe 10 Ml IV PRN PRN LINE FLUSH Venlafaxine HCl 150 mg 07/01/19 10:00 07/03/19 10:25 Effexor Xr PO 150 mg DAILY JANES Administration Nutrition/Malnutrition Assess - Dietary Evaluation Nutrition/Malnutrition Findings: Nutrition Notes Start: 06/30/19 08:32 Freq: Status: Active Protocol: Document 07/02/19 11:34 CT (Rec: 07/02/19 11:39 CT [email or web address]) Co-Sign 07/02/19 11:34 LP Nutrition Notes Initial or Follow up Reassessment Current Diagnosis Hypertension,Malnutrition Other Pertinent Diagnosis Multiple Sclerosis Current Diet TF Osmolite 1.5 at 40 ml/hr Labs/Tests Na 133 K 3.4 BUN 6 Cr 0.2 Glu 105 Pertinent Medications D5NS 75 ml/hr Heparin KDur Height 5 ft 6 in Weight 39.3 kg [place] Body Weight (kg) 59.09 BMI 13.9 Weight Status Emaciated Subjective/Other Information Follow up for TF tolerance. Per RN pt is tolerating TF and TF running at goal rate. RD reduced flush from 120 ml q4h to 60 ml q4h for hyponatremia. Percent of energy/protein needs met: 100% / 100% Burn Absent Trauma Absent Current % PO Negligible Minimum of two criteria Yes Body Fat Depletion Moderate depletion (severe) Muscle Mass Moderate Depletion (severe) #1 Nutrition Diagnosis Malnutrition Diagnosis Progress(for reassessment Continues documentation) Is patient on ventilator? Yes Is Patient Ambulatory and/or Out of Bed No REE-([facility]-confined to bed) 1169.184 Kcal/Kg value to use for calculation 37 Approximate Energy Requirements Using 1454 kcal/Kg Calculation Used for Recommendations Kcal/kg Additional Notes Pro needs: 48-80g/day (1.2-2 g /kg) Fluid needs: 1 ml/kcal Nutrition Intervention Change Diet Order: TF Nutrition Support: Osmolite 1.5 at 40ml/hr Flush 60 ml q4h for hyponatremia, once resolved flush 120 ml q4h Kcal 1,440 Protein (gm) 60 Fluid (mL) 732 Fiber (gm) 0 Goal #1 TF tolerance Goal #2 Meet at least 75% of energy and protein needs via TF Anticipated Discharge Needs: Unknown at this time Follow-Up By: 07/04/19 Additional Comments Follow up for TF tolerance and Na labs
--- NOTE | 2019-07-03 17:12 | Electroencephalogram Report ---
Electroencephalogram EEG Date of exam: 07/03/19 Description: History: Patient is a 63-year-old woman with a history of seizures, MS, hypertension, hyperlipidemia, who presents with seizures. Description: Impression: 1. Generalized slowing 2. Noted to have lateralized periodic discharges in the right hemisphere, occurring approximately every 12 to 24 seconds, indicating a focal epileptogenic area. 3. Noted to have periods of burst suppression indicating severe bihemispheric dysfunction. 4. No seizures noted during recording. Description: At the onset of this recording, the patient is lying supine. The background we note a 3-4 Hz delta activity that has an amplitude ranging 20-30 V. Noted to have periods of burst suppression intermittently. No facial twitching noted during recording. Noted to have lateralized periodic discharges in the right hemisphere, occurring approximately once every 12 to 24-seconds. Intermittent photic stimulation was not performed. Hyperventilation was not performed. Significant lead and movement artifact noted during EEG recording. Interpretation: This routine EEG performed during sleep is abnormal secondary to above findings and is consistent with bihemispheric dysfunction and encephalopathy. The above described findings of diffuse slowing is etiologically nonspecific, and similar findings have been reported in cases of toxic, metabolic, hypoxic ischemic, infectious, medication, sleep deprivation, dementia, postictal state, and other causes of diffuse and multifocal encephalopathy. Pattern of burst suppression indicates severe bihemispheric dysfunction. Lateralized periodic discharges indicate focal epileptogenic area.
--- NOTE | 2019-07-03 17:16 | Progress Note ---
Assessment and Plan Patient is a 63-year-old woman with a history of seizures, MS, hypertension, hyperlipidemia, who presents with seizures. According the patient's clinical findings, it is likely that she has had seizures. This may be due to lowered seizure threshold in the setting of possible UTI and pneumonia. Plan: 1. Seizures: - CT head: no acute abnormality - EEG 07/01/2019: Generalized slowing, no electrographic seizures noted. - EEG 07/02/2019: Noted to have 2 electrographic seizures lasting 30 to 60 seconds, in the right frontal central region. Generalized slowing also noted. -EEG 07/03/2019: No electrographic seizures noted. Generalized slowing noted with intermittent burst suppression. Lateralized periodic discharges noted in right hemisphere occurring once every 12 to 24 seconds approximately. -Cont. Keppra 1500 mg twice a day. -Continue Vimpat 100 mg twice daily. -Discussed patient for transfer to [place], with neuro hot mill operator Dr. Muñoz. Dr. Muñoz recommended loading patient with fosphenytoin and continue patient on maintenance dose of fosphenytoin. Also recommended for patient to be restarted on Ativan drip. This was done yesterday evening. -Given that patient is comatose and is noted to have seizures today on EEG, will require transfer to a facility where continuous EEG monitoring is available. -Contacted [facility], however they did not have any bed availability. Further contacted [facility], who accepted the transfer, and stated that patient would likely be transferred sometime this evening. -Continue to work-up and manage infectious and metabolic abnormalities per primary team. -If patient is found to have a seizure lasting more than 2 minutes, recommend Ativan 1 mg IV stat. If seizure does not resolve within 2 minutes after first dose, can repeat x1. Please call primary team and neurology stat if patient has a seizure. -Coordination of care was discussed with [facility] physician, who agreed with the plan. Also discussed plan of care with the patient's son, who agreed with the plan. -We will continue to monitor patient. Thank you for allowing me to take part in the care of this patient. Chago Gibbs MD Neurology Subjective Date of service: 07/03/19 Principal diagnosis: Status epilepticus Interval history: No clinical seizures noted overnight. Discussed with [facility] neuro hot mill operator, Dr. Muñoz yesterday evening, who accepted the transfer to [facility] and recommended for patient to be loaded with fosphenytoin and put on maintenance fosphenytoin, also recommended for patient to be restarted on Ativan drip. This was done overnight. Objective - Exam Narrative Exam: Patient is comatose, intubated. PERRL, intact corneal/cough reflexes. W/d to pain in all extremities. - Vital Sign Vital Signs - 12hr 07/03/19 07/03/19 07/03/19 05:31 06:00 06:30 Temperature Pulse Rate 101 H 100 H 101 H Pulse Rate [ From Monitor] Respiratory 16 16 16 Rate Blood Pressure 116/67 106/76 111/66 O2 Sat by Pulse 100 Oximetry 07/03/19 07/03/19 07/03/19 07:00 07:30 07:57 Temperature Pulse Rate 98 H 99 H 98 H Pulse Rate [ From Monitor] Respiratory 16 16 Rate Blood Pressure 118/64 113/72 118/64 O2 Sat by Pulse 100 100 100 Oximetry 07/03/19 07/03/19 07/03/19 08:00 08:01 08:30 Temperature 98.2 F Pulse Rate 100 H 103 H Pulse Rate [ 99 H From Monitor] Respiratory 16 15 12 Rate Blood Pressure 127/76 137/69 O2 Sat by Pulse 100 100 100 Oximetry 07/03/19 07/03/19 07/03/19 09:01 09:31 10:00 Temperature Pulse Rate 112 H 109 H 112 H Pulse Rate [ From Monitor] Respiratory 17 16 16 Rate Blood Pressure 144/90 114/70 110/55 O2 Sat by Pulse 100 100 100 Oximetry 07/03/19 07/03/19 07/03/19 10:23 10:30 11:00 Temperature Pulse Rate 116 H 115 H 113 H Pulse Rate [ From Monitor] Respiratory 16 16 Rate Blood Pressure 110/55 124/66 108/64 O2 Sat by Pulse 100 100 Oximetry 07/03/19 07/03/19 07/03/19 11:30 11:56 12:00 Temperature 98.0 F Pulse Rate 105 H 116 H 105 H Pulse Rate [ From Monitor] Respiratory 16 16 Rate Blood Pressure 111/61 110/55 111/61 O2 Sat by Pulse 92 100 100 Oximetry 07/03/19 15:23 Temperature Pulse Rate 105 H Pulse Rate [ From Monitor] Respiratory Rate Blood Pressure 111/61 O2 Sat by Pulse 100 Oximetry - General Apperance Constitutional: acutely ill - EENT EENT: ATNC, PERRL, mucous membranes moist - Respiratory Respiratory: decreased breath sounds - Cardiovascular Cardiovascular: regular rate, normal S1, normal S2 Extremities: no clubbing, cyanosis, no inflammation - Gastrointestinal Gastrointestinal: normoactive bowel sounds, soft, non-tender - Integumentary Integumentary: normal - Laboratory Findings CBC and BMP: 07/03/19 05:51 07/03/19 05:51 Abnormal Lab Findings: Abnormal Labs 06/29/19 06/29/19 06/29/19 08:39 08:39 10:47 WBC MCH RDW 15.4 H Starke % (Auto) Starke # Seg Neutrophils # ABG pH ABG pO2 257.4 H ABG HCO3 26.5 H ABG O2 Saturation 99.4 H ABG Base Excess ABG Hemoglobin 11.4 L Sodium Potassium 3.5 L Chloride Carbon Dioxide BUN Creatinine 0.4 L Glucose 105 H Alkaline Phosphatase 154 H Albumin 3.6 L Urine WBC (Auto) U Epithel Cells (Auto) 06/29/19 06/30/19 06/30/19 14:03 04:35 08:13 WBC 12.2 H MCH 27 L RDW 15.4 H [place] % (Auto) 11.4 H [place] # 1.4 H Seg Neutrophils # 8.2 H ABG pH 7.531 H ABG pO2 148.8 H ABG HCO3 26.1 H ABG O2 Saturation ABG Base Excess 4.0 H ABG Hemoglobin 11.8 L Sodium Potassium Chloride Carbon Dioxide BUN Creatinine Glucose Alkaline Phosphatase Albumin Urine WBC (Auto) 11.0 H U Epithel Cells (Auto) 34.0 H 06/30/19 07/01/19 07/02/19 08:13 04:00 04:14 WBC 11.4 H MCH 27 L RDW [place] % (Auto) [place] # Seg Neutrophils # ABG pH 7.477 H ABG pO2 148.1 H ABG HCO3 ABG O2 Saturation ABG Base Excess ABG Hemoglobin Sodium 136 L Potassium Chloride Carbon Dioxide 19 L BUN Creatinine 0.3 L Glucose Alkaline Phosphatase 162 H Albumin 3.3 L Urine WBC (Auto) U Epithel Cells (Auto) 07/02/19 07/02/19 07/03/19 04:14 05:00 03:35 WBC MCH RDW [place] % (Auto) [place] # Seg Neutrophils # ABG pH 7.504 H 7.515 H ABG pO2 142.2 H 135.2 H ABG HCO3 27.7 H 28.4 H ABG O2 Saturation ABG Base Excess 4.5 H 5.3 H ABG Hemoglobin 9.7 L Sodium 133 L Potassium 3.4 L Chloride 95.2 L Carbon Dioxide BUN 6 L Creatinine 0.2 L Glucose 105 H Alkaline Phosphatase 135 H Albumin 2.8 L Urine WBC (Auto) U Epithel Cells (Auto) 07/03/19 05:51 WBC MCH RDW [place] % (Auto) [place] # Seg Neutrophils # ABG pH ABG pO2 ABG HCO3 ABG O2 Saturation ABG Base Excess ABG Hemoglobin Sodium 135 L Potassium Chloride 95.1 L Carbon Dioxide 20 L BUN Creatinine 0.4 L D Glucose 120 H Alkaline Phosphatase Albumin Urine WBC (Auto) U Epithel Cells (Auto)
--- NOTE | 2019-07-03 17:32 | Progress Note ---
Assessment and Plan Cultures: 06/29/2019 sputum culture: Negative 07/02/2019 urine culture: Gram-negative rods A&P: 63-year-old woman past medical history status epilepticus, multiple sclerosis, HTN admitted with recurrent status epilepticus. Found to have pn eumonia, possible aspiration and reported to have ESBL E. coli UTI from outside hospital. #ESBL E. coli UTI: Reported from [place]. Recommend stopping levofloxacin given unclear susceptibility pattern and starting ertapenem to complete 3 days of therapy. Positive in-house urine cultures likely represents collection prior to change to ertapenem, and not a failure of therapy. We will continue ertapenem. #Pneumonia: Concern for aspiration given seizures. Will be incidentally treated with ertapenem which well covers most aspiration pathogens including anaerobes. #Acute hypoxic respiratory failure: Ventilated Recommendations: Continue ertapenem 1 g every 24 hours Patient to be transferred to [place], continue antibiotics through transfer. Thank you for the consult, will continue to follow Colt Beltran MD [facility] ([facility]) M: [phone] O: [phone] F: [phone] Subjective Date of service: 07/03/19 Principal diagnosis: Status epilepticus Interval history: Remains intubated. Afebrile with a normal white count. Objective - Exam Narrative Exam: Physical Exam: Constitutional: Intubated, sedated Head, Ears, Nose: Normocephalic, atraumatic. External ears, nose normal Eyes: Conjunctivae/corneas clear. No icterus. No ptosis. Neck: Intubated Oral: Intubated Cardiovascular: S1, S2 normal. Respiratory: Good air entry, clear to auscultation bilaterally GI: Soft, non-tender; bowel sounds normal. No peritoneal signs. Musculoskeletal: No pedal edema, no cyanosis. Skin: No rash or abscess Hem/Lymphatic: No palpable cervical or supraclavicular nodes. No lymphangitis Psych: Sedated Neurological: Sedated - Constitutional Vitals: Vital Signs Temp Pulse Resp BP Pulse Ox 98.0 F 105 H 16 111/61 100 07/03/19 12:00 07/03/19 15:23 07/03/19 12:00 07/03/19 15:23 07/03/19 15:23 Temperature -Last 24 Hours Temperature 98.0 F Temperature 98.2 F Temperature 98.2 F Temperature 99.0 F Temperature 98.7 F Temperature 98.9 F - Labs CBC & Chem 7: 07/03/19 05:51 07/03/19 05:51 Labs: Abnormal lab results 07/03/19 07/03/19 Range/Units 03:35 05:51 ABG pH 7.515 H (7.350-7.450) pH Units ABG pO2 135.2 H (80.0-90.0) mm Hg ABG HCO3 28.4 H (20.0-26.0) mmol/L ABG Base Excess 5.3 H (-2.0-3.0) mmol/L Sodium 135 L (137-145) mmol/L Chloride 95.1 L (98-107) mmol/L Carbon Dioxide 20 L (22-30) mmol/L Creatinine 0.4 L D (0.7-1.2) mg/dL Glucose 120 H (65-100) mg/dL
[2019-07-03] MEDS: LATANOPROST 0.005% OPHTH SOLN 2.5 ML OU SCH (18:51)
[2019-07-04 00:06] VITALS: BP 105/61
--- NOTE | 2019-07-04 07:26 | Discharge Summary ---
Providers - Providers Date of Admission: 06/29/19 10:55 Attending physician: ERYN SHEPARD MD 06/29/19 09:47 Consult to Dietitian/Nutrition [CONS] Routine Physician Instructions: Reason For Exam: Reason for Consult: Evaluate nutritional intake 06/29/19 11:00 Consult to Physician [CONS] Urgent Comment: Dr. Partida notified @ 12:03pm- [facility] Consulting Provider: JORDAN PARTIDA Physician Instructions: Reason For Exam: status epilepticus, intubated 06/29/19 15:31 Consult to Dietitian/Nutrition [CONS] Routine Physician Instructions: Reason For Exam: Reason for Consult: Write/Manage Tube Feeding 06/29/19 15:34 Consult to Dietitian/Nutrition [CONS] Routine Physician Instructions: Assess nutrtn needs, initiate, modify, manage TF Reason For Exam: Reason for Consult: Write/Manage Tube Feeding Reason for Consult: Write/Manage Tube Feeding 07/01/19 08:11 Consult to Physician [CONS] Routine Comment: Consulting Provider: PRESTON JAY Physician Instructions: Reason For Exam: Status epilepticus 07/02/19 08:35 Consult to Physician [CONS] Routine Comment: Consulting Provider: PAULO STONER Physician Instructions: Reason For Exam: Ecoli uti Primary care physician: [employer] Hospitalization Reason for admission: seizure Condition: Stable Hospital course: According to documentation on admission this is a 63-year-old female with a history of status epilepticus presenting to the ED with recurrent seizures and per history was treated here in March requiring endotracheal intubation.in the ED she was given Ativan and 2 g of Keppra. This was intermittently successful in stopping her seizures. Therefore we proceeded to RSI at elective intubation. The son was informed of the indications and risks of the procedure. He was in agreement. On admission is documented The patient is able to recognize family members at her baseline. She is contracted. She lives in an assisted living. However she is able to assist with her ADLs. Review of her previous admission at that time showed that she was treated for status epilepticus which resolved and was discharged on oral Keppra also at the same admission patient was intubated and subsequently extubated was also treated for urinary tract infection and severe protein calorie malnutrition with severe hypokalemia. Home medication of hydrochlorothiazide at that time was discontinued. 07/03: Yesterday attempted to transfer the patient to [place] [facility] [place] but no bed at this time as patient will need continuous EEG. Today the patient was loaded with Fosphyentoin, Continues on Keppra. Will continue to await placement while continuing with management by Neurology. ID was also consulted to assist with management * Patient currently is intubated continues on IV Keppra neurology did see the patient repeat EEG was performed but no active seizures was noted unfortunately patient is currently not waking up despite being off Ativan. * She continues to require mechanical ventilation due to mental status. * Keppra increased to 1500 mg twice daily by neurology recommends Ativan IV 1 mg if seizure lasting more than 2 minutes * Chest x-ray is unremarkable * Poor prognosis * 07/02. Repeat EEG shows seizure activity. Discussed with Neurologist and He has called [facility] to request transfer. Message left for the son also. * Discussed with [facility] doctors about UTI result from previous test, ID consulted and recommended ertapenem for possible ESBL Ecoli UTI - CT head: no acute abnormality - EEG 07/01/2019: Generalized slowing, no electrographic seizures noted. - EEG 07/02/2019: Noted to have 2 electrographic seizures lasting 30 to 60 seconds, in the right frontal central region. Generalized slowing also noted. -EEG 07/03/2019: No electrographic seizures noted. Generalized slowing noted with intermittent burst suppression. Lateralized periodic discharges noted in Cont. Keppra 1500 mg twice a day. -Continue Vimpat 100 mg twice daily. -Discussed patient for transfer to [place], with neuro apple thinner Dr. Muñoz. Dr. Muñoz recommended loading patient with fosphenytoin and continue patient on maintenance dose of fosphenytoin. Also recommended for patient to be restarted on Ativan drip. This was done yesterday evening. -Given that patient is comatose and is noted to have seizures today on EEG, will require transfer to a facility where continuous EEG monitoring is available. -Contacted [facility], however they did not have any bed availability. Further contacted [facility], who accepted the transfer, and stated that patient would likely be transferred sometime this evening. Status epilepticus Acute respiratory failure secondary to status epilepticus Hypertension Hyperlipidemia ESBL Ecoli uti NO SEPSIS [facility] Disposition: [id number]/TX-70 ANOTHER TYPE HLTHCARE Time spent for discharge: 35 mins Core Measure Documentation - Palliative Care Palliative Care/ Comfort Measures: Not Applicable - Core Measures Any of the following diagnoses?: none Exam - Physical Exam Narrative exam: VITAL SIGNS: Reviewed. GENERAL: The patient appears cachectic, critically ill-appearing currently intubated. vital signs as documented. HEAD: No signs of head trauma. EYES: Pupils are equal. Extraocular motions intact. EARS: Unable to assess MOUTH: ET tube in place . NECK: No adenopathy, no JVD. CHEST: Chest with bronchovesicular breath sounds bilaterally. No wheezes, rales, or rhonchi. CARDIAC: Regular rate and rhythm. S1 and S2, without murmurs, gallops, or rubs. VASCULAR: No Edema. Peripheral pulses normal and equal in all extremities. ABDOMEN: Soft, non tender and non distended. No rebound or guarding, and no masses palpated. Bowel Sounds normal. MUSCULOSKELETAL: Good range of motion of all major joints. Extremities without clubbing, cyanosis or edema. NEUROLOGIC EXAM: Unresponsive. Withdraws to pain. PSYCHIATRIC: Unable to assess SKIN: detail exam as documented in skin assessment - Constitutional Vitals: Temp Pulse Resp BP Pulse Ox 98.2 F 103 H 16 105/61 100 07/03/19 20:00 07/03/19 22:30 07/03/19 22:30 07/03/19 22:30 07/03/19 22:00 Plan Follow up with: PRIMARY MD MARIA INES [Primary Care Provider] - 3-5 Days
== END 2019-07-03 23:15 | disposition short-term general hospital (02) | DRG 100 ==
LOC: ED 08:20 → CC1 10:55
PROVIDERS: ADMIT Internal Medicine; ATTEND Internal Medicine
PROC: 4A033R1 Measurement of Arterial Saturation, Peripheral, Percutaneous Approach (ICD-10-PCS; principal; 2019-06-29)
PROC: 5A1955Z Respiratory Ventilation, Greater than 96 Consecutive Hours (ICD-10-PCS; 2019-06-29)
PROC: 0BH17EZ Insertion of Endotracheal Airway into Trachea, Via Natural or Artificial Opening (ICD-10-PCS; 2019-06-29)
DX: G40.901 Epilepsy, unspecified, not intractable, with status epilepticus (principal); J96.01 Acute respiratory failure with hypoxia; E43 Unspecified severe protein-calorie malnutrition; J69.0 Pneumonitis due to inhalation of food and vomit; N39.0 Urinary tract infection, site not specified; Z68.1 Body mass index [BMI] 19.9 or less, adult; G35 Multiple sclerosis; E87.5 Hyperkalemia; E87.6 Hypokalemia; I10 Essential (primary) hypertension; R00.0 Tachycardia, unspecified; R91.8 Other nonspecific abnormal finding of lung field; G43.909 Migraine, unspecified, not intractable, without status migrainosus; E78.00 Pure hypercholesterolemia, unspecified; E78.2 Mixed hyperlipidemia; H40.9 Unspecified glaucoma; B96.20 Unspecified Escherichia coli [E. coli] as the cause of diseases classified elsewhere
CPT/HCPCS: 31500; 36415; 36600; 70450; 70551; 71045; 80048; 80053; 80076; 80307; 81001; 82550; 82553; 82803; 82962; 83036; 83735; 83880; 84484; 85025; 85027; 85610; 85730; 87070; 87076; 87086; 87186; 87205; 93005; 93010; 94002; 94003; 95819; 96374; 99292; G0378; A9270-GY; C9254; J0330; J0696; J1335; J1644; J1953; J1956; J2060; J2250; J7030; J7042; Q2009